=== PATIENT | female | born 1945 | race Caucasian/White ===

== ENCOUNTER → 2016-10-21 | Outpatient (CLI) | payer OTHER, BC ==
[~2016-10-21] MED LIST: AMLO-114 PO; ASPCH81X PO; CALC500C70 PO; HYDR25TA4 PO; LORA10CA2 PO; LOSA1TAB38 PO; METO1TAB69 PO; TIMO1SOL6 OPB
--- NOTE | 2016-10-21 16:36 | MAMMOGRAPHY REPORT ---
BILATERAL DIGITAL SCREENING MAMMOGRAM WITH CAD: 10/21/2016 CLINICAL HISTORY: Routine screening. Patient has no complaints. TECHNIQUE: Current study was also evaluated with a Computer Aided Detection (CAD) system. Bilatera l CC and MLO views were obtained. COMPARISON: Comparison is made to exams dated: 10/21/2015 mammogram, 10/17/2013 mammogram, 10/20/2014 mammogram, 10/16/2012 mammogram, and 10/13/2011 mammogram - [facility]. BREAST COMPOSITION: There are scattered areas of fibroglandular density in both breasts. FINDINGS: There is a small 6 mm nodular asymmetry seen within the right breast middle depth on the cc view posterior to the nipple, which may represent normal overlapping fibroglandular tissue althou gh spot compression tomosynthesis views and possible breast ultrasound are recommended for further e valuation. The remainder of both breasts are stable compared to prior exams, without suspicious masses, calcifi cations, or areas of architectural distortion noted. Bilateral benign-appearing calcifications are not significantly changed. IMPRESSION: ACR BI-RADS CATEGORY 0: INCOMPLETE EVALUATION: NEED ADDITIONAL IMAGING EVALUATION Right breast asymmetry, for which additional imaging evaluation is recommended. The patient will be called to schedule an appointment. Approximately 10% of breast cancers are not detected with mammography. A negative mammographic repor t should not delay biopsy if a clinically suggestive mass is present. Peg Mariano M.D. /:10/21/2016 16:04:12 Furnace Tapper: Kenya BRIGHT(Rudolph)(Bryce), [facility] letter sent: Addl Imaging 0 BI-RADS Code: ACR BI-RADS Category 0: Incomplete Evaluation: Need Additional Imaging Evaluation
== END | disposition home or self-care (01) ==
LOC: C.MAMM 09:24
PROVIDERS: ATTEND Obstetrics & Gynecology
DX: Z12.31 Encounter for screening mammogram for malignant neoplasm of breast (principal); N64.89 Other specified disorders of breast

== ENCOUNTER → 2016-10-31 | Outpatient (CLI) | payer OTHER, BC ==
--- NOTE | 2016-11-02 10:19 | MAMMOGRAPHY REPORT ---
UNILATERAL RIGHT DIGITAL DIAGNOSTIC MAMMOGRAM TOMOSYNTHESIS AND TARGETED RIGHT ULTRASOUND: 10/31/2016 CLINICAL HISTORY: 71-year-old woman called back from screening mammography for a 6 mm nodular asymme try in the right breast. TECHNIQUE: Spot compression right CC and MLO 2-D digital and tomosynthesis images were obtained. COMPARISON: Comparison is made to exams dated: 10/21/2015 mammogram, 10/21/2016 mammogram, 10/20/2014 mammogram, and 10/17/2013 mammogram - [facility]. BREAST COMPOSITION: There are scattered areas of fibroglandular density in the right breast. FINDINGS: There is complete effacement of the 6 mm nodular asymmetry in the slightly lateral, middle one third of the right breast, best seen on the CC view but thought to project superiorly based on the MLO view. There is no evidence of a persistent mass or a focal area of architectural distortion . There are benign-appearing rodlike secretory calcifications within the right breast. Real-time high-resolution ultrasound was performed in the right breast from the 11:00 through 1:00, retroareolar and 5:00 to 7:00 axes. Normal fibroglandular tissue is seen without a discrete solid o r cystic mass. IMPRESSION: ACR BI-RADS CATEGORY 2: BENIGN, TARGETED ULTRASOUND ACR BI-RADS CATEGORY 2: BENIGN Effacement of the 6 mm nodular asymmetry in the right breast with supplemental mammographic views an d tomosynthesis images, and no suspicious sonographic correlate. This most likely represented ariel l overlapping tissue. There is no mammographic or targeted sonographic evidence of malignancy. Retu rn to annual mammogram screening schedule is recommended. The patient has been verbally notified of the results. Approximately 10% of breast cancers are not detected with mammography. A negative mammographic repor t should not delay biopsy if a clinically suggestive mass is present. Lizette Hussein M.D. ay/:10/31/2016 14:18:48 Flag Signaler: Whitley BRIGHT(Rudolph)(Bryce), [facility] letter sent: Normal 1/2 BI-RADS Code: ACR BI-RADS Category 2: Benign Ultrasound BI-RADS: ACR BI-RADS Category 2: Benign
== END | disposition home or self-care (01) ==
LOC: C.MAMM 13:50
PROVIDERS: ATTEND Obstetrics & Gynecology
DX: N64.89 Other specified disorders of breast (principal)

== ENCOUNTER → 2016-11-30 | Outpatient (CLI) | payer OTHER, BC ==
[~2016-11-30] MED LIST changes: +METO100T44 PO; -METO1TAB69 PO
[2016-11-30 12:20] LABS: BASO % 0.4 %; BASO ABS # 0.02 K/uL (0-0.2); COMPLETE YES; EOS % 0.7 %; HEMATOCRIT 44.9 % (37-47); LYMPH % 34.5 %; LYMPH ABS # 1.95 K/uL (1.2-3.4); MEAN CELL VOLUME 91.8 fL (80-100); MEAN CORPUSCULAR HEMOGLOBIN 31.7 pg (25-34); MEAN CORPUSCULAR HGB CONC 34.5 g/dl (32-36); MEAN PLATELET VOLUME 9.6 fL (7.4-10.4); NEUT % 58.4 %; PLATELET COUNT 302 K/uL (130-400); RED BLOOD COUNT 4.89 M/uL (4.2-5.4); WHITE BLOOD COUNT 5.65 K/uL (4.8-10.8)
[2016-11-30 12:37] LABS: ALT/SGPT 25 U/L (12-78); BLOOD UREA NITROGEN 12 mg/dl (7-18); BUN/CREATININE RATIO 15.9 (10-20); CARBON DIOXIDE 27 mmol/L (21-32); CHLORIDE 96 mmol/L (98-107); CHOLESTEROL 251 mg/dl (0-200); CREATININE 0.76 mg/dl (0.60-1.20); GLUCOSE 108 mg/dl (70-99); MAGNESIUM 1.9 mg/dl (1.8-2.4); POTASSIUM 3.3 mmol/L (3.5-5.1); SODIUM 132 mmol/L (136-145); TRIGLYCERIDES 61 mg/dl (0-150); VERY LOW DENSITY LIPOPROT CALC 12 mg/dl
[2016-11-30 12:40] LABS: ALB/GLOB RATIO 1.2 (0.9-2); ALKALINE PHOSPHATASE 58 U/L (45-117); AST/SGOT 22 U/L (15-37); CHOLESTEROL/HDL RATIO 2.3; HDL CHOLESTEROL 110 mg/dl; LDL CHOLESTEROL CALCULATED 129 mg/dl
[2016-11-30 12:44] LABS: ESTIMATED AVERAGE GLUCOSE 120 mg/dl; HA1C FLAG Normal (Normal)
--- NOTE | 2016-12-07 07:25 | CODING QUERY MEDICAL NECESSITY ---
CQSUPPORTING DIAGNOSIS NEEDED A supporting diagnosis is required for the test/procedure performed on this patient in order for us to be reimbursed by the patient's insurance. Please provide a supporting diagnosis for the following test/procedure listed below next to the test name along with your signature. *If there is no additional diagnosis for this patient that would support the following test/procedure please document that below next to the test/procedure. Test(s)/Procedure(s) that require a supporting diagnosis: DOS 11/30/16 GLYCATED HEMOGLOBIN TEST Provider Signature: Date: Thank you Leslye Arita Health Information Management Once completed, please kindly fax back to [phone] For questions please call [phone]
== END | disposition home or self-care (01) ==
LOC: C.LAB1850 10:46
PROVIDERS: ATTEND Internal Medicine
DX: I10 Essential (primary) hypertension (principal); E88.81 Metabolic syndrome and other insulin resistance; E78.5 Hyperlipidemia, unspecified; E83.42 Hypomagnesemia; R73.09 Other abnormal glucose

== ENCOUNTER → 2016-12-23 | Outpatient (CLI) | payer OTHER, BC | END | disposition home or self-care (01) | LOC: C.RDSM 14:17 | PROVIDERS: ATTEND Family Medicine Sports Medicine | DX: M25.552 Pain in left hip (principal) ==

== ENCOUNTER → 2017-06-02 | Outpatient (CLI) | payer OTHER, BC ==
[2017-06-02 12:30] LABS: ESTIMATED AVERAGE GLUCOSE 117 mg/dl; HA1C FLAG Normal (Normal)
[2017-06-02 13:37] LABS: ALT/SGPT 21 U/L (12-78); AST/SGOT 19 U/L (15-37); BLOOD UREA NITROGEN 12 mg/dl (7-18); BUN/CREATININE RATIO 18.2 (10-20); CALCIUM 10.1 mg/dl (8.5-10.1); CARBON DIOXIDE 28 mmol/L (21-32); CHLORIDE 99 mmol/L (98-107); CHOLESTEROL 240 mg/dl (0-200); CREATININE 0.66 mg/dl (0.60-1.20); GLUCOSE 114 mg/dl (70-99); SODIUM 134 mmol/L (136-145); TRIGLYCERIDES 75 mg/dl (0-150); VERY LOW DENSITY LIPOPROT CALC 15 mg/dl
[2017-06-02 13:40] LABS: CHOLESTEROL/HDL RATIO 2.8; HDL CHOLESTEROL 86 mg/dl; LDL CHOLESTEROL CALCULATED 139 mg/dl
== END | disposition home or self-care (01) ==
LOC: C.LAB1850 10:24
PROVIDERS: ATTEND Internal Medicine
DX: I10 Essential (primary) hypertension (principal); E78.5 Hyperlipidemia, unspecified; R73.09 Other abnormal glucose

== ENCOUNTER → 2017-07-24 | Day surgery (SDC) | payer OTHER, BC ==
[~2017-07-24] VITALS: Ht 168.9 cm; Wt 59.0 kg
[~2017-07-24] MED LIST changes: +CARV25TA2 PO; +OMEG10007 PO; +POTA20TA16 PO
[2017-07-24 08:47] VITALS: BP 202/80; PULSE 59; TEMP 36.6; O2SAT 97; Ht 168.9 cm; Wt 59.0 kg
--- NOTE | 2017-07-25 09:56 | Procedure Note ---
Breath Hydrogen Test Interpretation Assessment: Findings from Lactose breath test consistent with Lactose intolerance. Plan: Lactose free diet If patient does ingest Lactose, recommend Lactaid with first bite/drink of lactose containing substance. Recommend Celiac disease testing if it has not already been performed. Return to ordering provider as scheduled.
== END | disposition home or self-care (01) ==
LOC: C.MTU 08:31
PROVIDERS: ATTEND Internal Medicine
DX: R19.7 Diarrhea, unspecified (principal)

== ENCOUNTER → 2017-10-23 | Outpatient (CLI) | payer OTHER, BC ==
[~2017-10-23] MED LIST changes: -AMLO-114 PO; -LORA10CA2 PO; -METO100T44 PO; -TIMO1SOL6 OPB
--- NOTE | 2017-10-24 14:58 | MAMMOGRAPHY REPORT ---
BILATERAL DIGITAL SCREENING MAMMOGRAM TOMOSYNTHESIS WITH CAD: 10/23/2017 CLINICAL HISTORY: Routine screening. Patient has no complaints. TECHNIQUE: Breast tomosynthesis in addition to standard 2D mammography was performed. Current study was also evaluated with a Computer Aided Detection (CAD) system. COMPARISON: Comparison is made to exams dated: 10/31/2016 mammogram, 10/21/2016 mammogram, 10/21/2015 m ammogram, 10/20/2014 mammogram, 10/17/2013 mammogram, and 10/16/2012 mammogram - [facility]. BREAST COMPOSITION: There are scattered areas of fibroglandular density in both breasts. FINDINGS: There is a 9 mm asymmetry seen in the right central breast, for which spot compression susan synthesis views and possible breast ultrasound are recommended for further evaluation. The remainder of both breasts are stable compared to prior exams, without suspicious masses, calcific ations, or areas of architectural distortion noted. Bilateral benign-appearing calcifications are no t significantly changed. IMPRESSION: ACR BI-RADS CATEGORY 0: INCOMPLETE EVALUATION: NEED ADDITIONAL IMAGING EVALUATION Right breast asymmetry, for which additional imaging evaluation is recommended. The patient will be called to schedule an appointment. Approximately 10% of breast cancers are not detected with mammography. A negative mammographic report should not delay biopsy if a clinically suggestive mass is present. Peg Mariano M.D. /:10/23/2017 16:04:17 Hvac Sheet Metal Installer: Naila FALCON)(Bryce), [facility] letter sent: Addl Imaging 0 BI-RADS Code: ACR BI-RADS Category 0: Incomplete Evaluation: Need Additional Imaging Evaluation
== END | disposition home or self-care (01) ==
LOC: C.MAMM 09:56
PROVIDERS: ATTEND Obstetrics & Gynecology
DX: Z12.31 Encounter for screening mammogram for malignant neoplasm of breast (principal); N64.89 Other specified disorders of breast

== ENCOUNTER → 2017-11-01 | Outpatient (CLI) | payer OTHER, BC ==
--- NOTE | 2017-11-02 07:47 | MAMMOGRAPHY REPORT ---
UNILATERAL RIGHT DIGITAL DIAGNOSTIC MAMMOGRAM TOMOSYNTHESIS AND TARGETED RIGHT ULTRASOUND: 11/01/2017 CLINICAL HISTORY: 72-year-old woman called in back from screening mammography for a 9 mm focal asymme try in the central right breast. TECHNIQUE: Spot compression tomosynthesis right CC and MLO views were obtained. COMPARISON: Comparison is made to exams dated: 10/23/2017 mammogram, 10/31/2016 mammogram, 10/31/2016 u ltrasound, 10/21/2016 mammogram, 10/21/2015 mammogram, and 10/20/2014 mammogram - [facility]. BREAST COMPOSITION: There are scattered areas of fibroglandular density in the right breast. FINDINGS: The additional spot compression tomosynthesis views of the right breast demonstrate effacem ent of the 9 mm focal asymmetry in the central right breast. No definite persistent architectural di stortion, obvious mass or asymmetry. Further evaluation with ultrasound was performed. Targeted ultrasound was performed throughout the right breast including the retroareolar breast. Son ographically normal tissue is seen without a discrete solid or cystic mass. Although the asymmetry effaces with the additional mammographic views and no sonographic correlate wa s seen, the asymmetry is in the same general location as an asymmetry seen on last years mammogram an d therefore remains indeterminate. Definitive characterization with a contrast-enhanced breast MRI i s recommended. IMPRESSION: ACR BI-RADS CATEGORY 0: INCOMPLETE EVALUATION: NEED ADDITIONAL IMAGING EVALUATION, TARG ETED ULTRASOUND ACR BI-RADS CATEGORY 0: INCOMPLETE EVALUATION: NEED ADDITIONAL IMAGING EVALUATION Effacement of the right breast asymmetry, and no suspicious sonographic correlate identified. Renetta r, given the conspicuous and suspicious nature of this asymmetry on the patient's screening mammogram , further characterization with a breast MRI is recommended. These results and recommendations were discussed with the patient at the time of the exam. She tenta tively scheduled the MRI prior to leaving our department. Approximately 10% of breast cancers are not detected with mammography. A negative mammographic report should not delay biopsy if a clinically suggestive mass is present. Lizette Hussein M.D. ay/:11/01/2017 12:29:55 Mud Cleaner Operator: Naye Wilson, [facility] letter sent: Addl Imaging 0 BI-RADS Code: ACR BI-RADS Category 0: Incomplete Evaluation: Need Additional Imaging Evaluation Ult rasound BI-RADS: ACR BI-RADS Category 0: Incomplete Evaluation: Need Additional Imaging Evaluation
== END | disposition home or self-care (01) ==
LOC: C.MAMM 09:09
PROVIDERS: ATTEND Obstetrics & Gynecology
DX: N64.89 Other specified disorders of breast (principal)

== ENCOUNTER → 2017-11-02 | Outpatient (CLI) | payer OTHER, BC ==
[2017-11-02 15:18] LABS: BLOOD UREA NITROGEN 15 mg/dl (7-18); CREATININE 0.81 mg/dl (0.60-1.20)
== END | disposition home or self-care (01) ==
LOC: C.LAB1850 13:17
PROVIDERS: ATTEND Obstetrics & Gynecology
DX: R92.8 Other abnormal and inconclusive findings on diagnostic imaging of breast (principal)

== ENCOUNTER → 2017-11-15 | Outpatient (CLI) | payer OTHER, BC ==
[~2017-11-15] MED LIST changes: +GADAVIST IV PRN; +POTA-639 PO; -POTA20TA16 PO
--- NOTE | 2017-11-16 07:57 | MAMMOGRAPHY REPORT ---
BREAST MRI OF BOTH BREASTS : 11/15/2017 CLINICAL HISTORY: A right breast asymmetry was seen on a recent screening mammogram. The asymmetry e ffaced on the additional images, without a suspicious sonographic correlate evident. However, an MRI was recommended for further evaluation given the conspicuous nature on the screening mammogram. COMPARISON: Comparison is made to exams dated: 11/01/2017 ultrasound, 11/01/2017 mammogram, 10/23/2017 mammogram, 10/31/2016 mammogram, 10/31/2016 ultrasound, and 10/21/2016 mammogram - [facility]. Technique: The patient was placed prone in a dedicated breast imaging coil. Precontrast axial T1-lissette ghted, axial T2-weighted fat saturation, and axial T1-weighted fat saturation images were obtained. After the administration of 5.5 mL of Gadavist IV contrast, sequential T1-weighted fat saturation aubrey ges were obtained. Subtraction images were obtained of the dynamic contrast enhanced sequences, and 3-D reformations were performed. The [employer] software was used for kinetic analysis. Findings: There is minimal background parenchymal enhancement involving bilateral breasts. There are no suspic ious enhancing masses or areas of abnormal non-mass enhancement seen within either breast. Specifica lly, there is no enhancing mass or other suspicious abnormality in the right breast at the site of an asymmetry seen mammographically. Given that the asymmetry effaced on the additional views and given the lack of corresponding MRI abnormality, the asymmetry is benign and compatible with normal fibrog landular tissue. There is no evidence of axillary adenopathy. The chest wall structures are negative. Visualized por tions of the extramammary soft tissues are grossly unremarkable. IMPRESSION: ACR BI-RADS CATEGORY 2: BENIGN No MRI evidence of malignancy in either breast. There is no suspicious MRI abnormality at the site o f the right breast asymmetry seen mammographically; given the lack of a corresponding MRI abnormality and given that the asymmetry effaced on the additional mammographic images, the asymmetry is benign and compatible with normal fibroglandular tissue. Return to annual mammogram screening schedule is re commended. Peg Mariano M.D. /:11/15/2017 13:28:56 Filler Picker: child welfare director, [facility] letter sent: Normal 1/2 BI-RADS Code: ACR BI-RADS Category 2: Benign
== END | disposition home or self-care (01) ==
LOC: C.MRI 11:27
PROVIDERS: ATTEND Obstetrics & Gynecology
DX: R92.8 Other abnormal and inconclusive findings on diagnostic imaging of breast (principal)

== ENCOUNTER → 2017-11-22 | Outpatient (CLI) | payer OTHER, BC ==
[~2017-11-22] MED LIST changes: -GADAVIST IV PRN
[2017-11-22 12:21] LABS: BLOOD UREA NITROGEN 14 mg/dl (7-18); CALCIUM 9.8 mg/dl (8.5-10.1); CARBON DIOXIDE 29 mmol/L (21-32); CREATININE 0.75 mg/dl (0.60-1.20); GLUCOSE 107 mg/dl (70-99); POTASSIUM 3.8 mmol/L (3.5-5.1); SODIUM 131 mmol/L (136-145)
[2017-11-22 12:24] LABS: CHOLESTEROL 211 mg/dl (0-200); LDL CHOLESTEROL CALCULATED 107 mg/dl
== END | disposition home or self-care (01) ==
LOC: C.LAB1850 10:01
PROVIDERS: ATTEND Internal Medicine
DX: E78.5 Hyperlipidemia, unspecified (principal); I10 Essential (primary) hypertension; M85.80 Other specified disorders of bone density and structure, unspecified site

== ENCOUNTER → 2017-12-21 | Outpatient (CLI) | payer OTHER, BC | END | disposition home or self-care (01) | LOC: C.PAPS 07:49 | PROVIDERS: ATTEND Obstetrics & Gynecology | DX: Z01.419 Encounter for gynecological examination (general) (routine) without abnormal findings (principal) ==

== ENCOUNTER 2019-11-14 08:27 | Inpatient (IN) ==
[2019-11-12 09:35] LABS: Basophils # (auto) 0.04 K/uL (0-0.2); Basophils % (auto) 0.8 %; Eosinophils # (auto) 0.11 K/uL (0-0.5); Eosinophils % (auto) 2.2 %; Hematocrit (blood only) 40.1 % (37-47); Hemoglobin 13.7 g/dL (12.0-16.0); Lymphocytes # (auto) 2.19 K/uL (1.2-3.4); Lymphocytes % (auto) 43.5 %; Mean Corpuscular Hemoglobin 31.5 pg (25-34); Mean Corpuscular Hgb Conc 34.2 g/dL (32-36); Mean Corpuscular Volume 92.2 fL (80-100); Mean Platelet Volume 9.7 fL (7.4-10.4); Monocytes # (auto) 0.37 K/uL (0.11-0.59); Monocytes % (auto) 7.3 %; Neutrophils # (auto) 2.33 K/uL (1.4-6.5); Neutrophils % (auto) 46.2 %; Platelet Count 286 K/uL (130-400); RDW Coefficient of Variation 13.5 % (11.5-14.5); RDW Standard Deviation 46.1 fL (36.4-46.3); Red Blood Count 4.35 M/uL (4.2-5.4); White Blood Count 5.04 K/uL (4.8-10.8)
[2019-11-12 10:01] LABS: BUN Creatinine Ratio 18.6 (10-20); Blood Urea Nitrogen 12 mg/dl (7-18); Calcium 9.6 mg/dl (8.5-10.1); Carbon Dioxide 29 mmol/L (21-32); Chloride 100 mmol/L (98-107); Est GFR (African American) 102.3; Est GFR (Non-African American) 88.3; Glucose 112 mg/dl (70-99); Sodium 133 mmol/L (136-145)
--- NOTE | 2019-11-13 11:47 | Anesthesiology Consultation ---
Date of Service November 13, 2019 Assessment & Plan (1) Encounter for pre-operative examination: Chart Review Chart Review: Acceptable Risk for Surgery and Patient NOT seen in Pre Admission Testing Consults Requested none History Surgery Operation Date: 11/14/19 10:00 Proposed Procedures p Left Robotic Video Assisted Thoracoscopy with Left Upper Wedge Resection and Mediastinal Lymphadenectomy - Patrick Figueroa MD, FACS Height/Weight Height: 5 ft 4.5 in Weight: 57.606 kg Allergies Allergy/AdvReac Type Severity Reaction Status Date / Time azithromycin Allergy Diarrhea Verified 11/13/19 08:57 codeine AdvReac Unknown NAUSEA Verified 11/13/19 08:57 nickel AdvReac Unknown Rash Verified 11/13/19 08:57 lactose AdvReac Diarrhea Verified 11/13/19 08:57 Medications Home Medications Medication Instructions Recorded Confirmed Last Taken Lactobacillus 1 cap PO UD cap 03/12/19 11/13/19 10/07/19 08:00 acidophilus-Bifidobac.animalis 31 billion cell capsule biotin 2,500 mcg capsule 2,500 mcg PO QPM cap 03/12/19 11/13/19 10/08/19 18:00 calcium carbonate 600 mg (1,500 1 tab PO BID tab 03/12/19 11/13/19 10/09/19 06:00 mg)-vitamin D3 200 unit tablet aspirin 81 mg tablet 81 mg PO Q OTHER DAY tab 06/17/19 11/13/19 10/06/19 08:00 carvedilol 25 mg tablet 25 mg PO BID #180 tab 09/18/19 11/13/19 10/09/19 06:00 albuterol sulfate 90 mcg/actuation 2 puff INH Q6H PRN #18 gm 09/27/19 11/13/19 10/06/19 08:00 aerosol inhaler bupropion HCl (smoking deter) 150 150 mg PO BID #60 tab 09/27/19 11/11/19 18:00 mg tablet,12 hr sustained-release(smoking deterrent) hydrochlorothiazide 25 mg PO QAM 11/13/19 11/13/19 Unknown losartan 100 mg PO QAM 11/13/19 11/13/19 Unknown potassium chloride 20 meq PO BID 11/13/19 11/13/19 Unknown umeclidinium-vilanterol [Anoro 1 puffs INH QAM 11/13/19 11/13/19 Unknown Ellipta] Past Medical History Medical History Abnormal glucose (Inactive) PATIENT STATES "BORDERLINE". NO MEDICATIONS. CONTROLLED WITH DIET. Alopecia Bronchitis HISTORY OF 2 YEARS AGO (2018) COPD with emphysema PATIENT STATES IT IS CONTROLLED, NO OXYGEN NEEDED. ABLE TO WALK UP TWO FLIGHTS OF STAIRS WITH NO SOB. Dysmetabolic syndrome X (Inactive) Eczema DURING THE WINTER MONTHS Hearing loss (Inactive) BL HEARING AIDS Hypertension (Inactive) Lymphocytic colitis (Inactive) Osteopenia (Inactive) Primary lung adenocarcinoma (Chronic) CT guided left upper lobe lung nodule on 10/09/2019 Pulmonary nodule Tobacco use disorder Past Family History Family History Father , 87yo Type 2 diabetes mellitus Myocardial infarction Mother , 49yo Cerebral aneurysm Sister No problems noted. Son No problems noted. Daughter No problems noted. Denies family history of Colon cancer Ovarian cancer Prostate cancer Past Surgical History Surgical History H/O esophagogastroduodenoscopy 3 YEARS AGO History of cataract surgery History of colonoscopy 3 YEARS AGO S/P POLYPECTOMY Social History Smoking Status: Former smoker tobacco type: cigarettes Smoking cigarettes per day: 10 Do You Dip or Chew Tobacco: No Smoking End Date: 11/09/2019 Hx Alcohol Use: Yes Alcohol type: beer, wine and hard liquor alcohol intake frequency: 0-2 drinks per day Alcohol Intake Frequency Comment: 2 DRINKS A DAY Hx Substance Use: No Testing Laboratory Results 11/12/19 09:04 11/12/19 09:04 Electrocardiogram Date: 11/12/19 Sinus bradycardia with 1st degree A-V block, rate 56 bpm Minimal voltage criteria for LVH, may be normal variant ( Sokolow-Ochoa ) Borderline ECG No previous ECGs available Chest X-Ray Date: 10/09/19 IMPRESSION: 1. No pneumothorax is identified. 2. Emphysema. 3. A left upper lobe opacity likely corresponds to the patient's known left upper lobe pulmonary lesion and trace postprocedural hemorrhage. 4. Additional smaller pulmonary lesions seen by CT cannot be visualized by x- ray. Echocardiogram Date: 11/05/19 LV systolic function is normal No regional wall motion abnormalities EF 60-65% Mild TR Pulmonary Function Test Date: 10/04/19 Severe obstructive lung dysfunction Significant bronchodilator response Positive air trapping Severe COPD with emphysema Other Testing Brain MRI 11/05/19 IMPRESSION: 1. No evidence of intracranial metastasis 2. No evidence of acute or subacute infarction 3. 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 CT angiography of the brain is recommended in follow-up 4. 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 24 x 7 mm right anterior temporal extra-axial focus of decreased T1 and T2 signal, likely representing a dural calcific/ossific focus
[~2019-11-14 08:27] MED LIST changes: -ASPCH81X PO; -CALC500C70 PO; -CARV25TA2 PO; -HYDR25TA4 PO; -LOSA1TAB38 PO; +LR 15ML/HR IV SCH; -OMEG10007 PO; -POTA-639 PO
[2019-11-14] MEDS ORDERED: HYDROmorphone INJ 1 MG/ML SYRINGE IV PRN (09:25)
[2019-11-14] MEDS ORDERED: ePHEDrine sulfate 50 MG/ML AMP IV PRN (09:25)
[2019-11-14] MEDS ORDERED: ATROPINE SULFATE 0.1 MG/ML 10ML SYR IV PRN (09:25)
[2019-11-14] MEDS ORDERED: ONDANSETRON INJ 2 MG/ML 2 ML VIAL IV PRN ×2 (09:25→15:33)
[2019-11-14] MEDS ORDERED: NEOSTIGMINE METHYLSULFATE 5 MG/5 ML SYR ONE (10:10)
[2019-11-14] MEDS ORDERED: LIDOCAINE HCL 2% 2 ML VIAL/AMP(20MG/ML) INFIL ONE (10:10)
[2019-11-14] MEDS ORDERED: GLYCOPYRROLATE 0.2 MG/ML VIAL ONE ×2 (10:10→12:49)
[2019-11-14] MEDS ORDERED: DEXAMETHASONE SOD INJ 4 MG/ML VIAL ONE (10:10)
[2019-11-14] MEDS ORDERED: PROPOFOL IV EMULSION 10 MG/ML 20 ML VIAL IV ONE (10:10)
[2019-11-14] MEDS ORDERED: ONDANSETRON INJ 2 MG/ML 2 ML VIAL ONE (10:10)
[2019-11-14] MEDS ORDERED: MIDAZOLAM HCL 1 MG/ML 2ML VIAL ONE (10:11)
[2019-11-14] MEDS ORDERED: fentaNYL citrate 100 MCG/2 ML VIAL ONE ×2 (10:11→14:13)
--- NOTE | 2019-11-14 10:16 | History & Physical Bridge Note ---
Date of Service November 14, 2019 History & Physical Bridge Note I have examined the patient, reviewed the History & Physical and in the interval since the performance of the History & Physical I have noted the following changes of clinical significance: no changes noted
[2019-11-14] MEDS ORDERED: SODIUM CHLORIDE 0.9% PF 50 ML VIAL ONE (10:35)
[2019-11-14] MEDS ORDERED: BUPIVACAINE 0.5 % 5 MG/1 ML MPF 30ML VIAL ONE (10:36)
[2019-11-14] MEDS ORDERED: BUPIVACAINE LIPOSOME 1.3% 266 MG/20 ML VIAL ONE (10:36)
[2019-11-14] MEDS ORDERED: CEFAZOLIN 250 MG/ML 1 GM VIAL ONE (12:24)
[2019-11-14] MEDS ORDERED: ePHEDrine sulfate 50 MG/ML AMP ONE (12:48)
[2019-11-14] MEDS ORDERED: ACETAMINOPHEN 1000 MG/100 ML IV IV ONE (13:14)
--- NOTE | 2019-11-14 13:30 | Operative Report ---
PG Post Operative Report Pre & Post Diagnosis Operation Date: 11/14/19 10:00 Pre-Op Diagnosis: Adenocarcinoma left upper lobe Post-Op Diagnosis: Adenocarcinoma left upper lobe I identified the patient and participated in the time-out.: Yes Procedure Operation Date: 11/14/19 10:00 Actual Procedures p Left Robotic Video Assisted Thoracoscopy with Left Upper Wedge Resection and Mediastinal Lymphadenectomy(Left) - Patrick Figueroa MD, FACS Surgeon Patrick Figueroa MD, FACS Quality Assurance Assessor Isaias DIAS Estimated Blood Loss 25 Findings Consistent with Post-Op Diagnosis Specimens Left upper lobe wedge x2. Multiple mediastinal lymph nodes. Drains 24 Iranian left chest tube Anesthesia Type General Complications none Disposition Accompanied Patient To Recovery: Yes Disposition: Recovery Room Description of Procedure This very nice 74-year-old female who underwent a needle biopsy of a left upper lobe mass was found to have an adenocarcinoma. We discussed her multiple times at our multidisciplinary cancer conference this. She has some groundglass opacities on the right however they did not light up on the PET scan. She also has no mediastinal adenopathy. It was felt that she may be a candidate for therapy but we have not stage her properly. An MRI of her brain did not reveal any evidence of metastatic disease. After much discussion we elected proceed with a wedge resection as we did not have genomic studies on her needle biopsy. I did discuss repeating the CT-guided core biopsy with the patient and she was desirous of having a definitive diagnosis. I had a long discussion with the patient and her in the office as well as her daughter. We elected to proceed with a wedge resection if she does have compromised lung function and continues to smoke although she has decreased dramatically. I felt she would be a candidate for a wedge resection and a lymph node dissection to properly stage her and treat her locally. Would also be of acute syndrome extremities. Everyone was in agreement. On 11/14/2019 patient underwent uncomplicated robot-assisted thoracoscopic wedge resection. We easily divide the mass. It was not attached to the left lower lobe however did appear to involve the pleura. I wedged it out and went down to the cutting room where the pathologist and I reviewed the gross tumor and it appeared there we had about a 5 or 6 mm margin in one area. The bit concerned about this and came back to the operating room and wedged out a more generous section here. I want to ensure we had negative margins. In addition I biopsied multiple lymph nodes were waiting for the frozen. She tolerated the procedure quite well with negative a blood loss was awake without difficulty in the operating room. Procedure: Patient was brought to the operating room and laid in the supine position she was intubated without difficulty with a double-lumen tube and turned in the right lateral decubitus position. After she was prepped and draped in usual sterile fashion prophylactic antibiotics were given. Appropriate timeout was called and one lung ventilation ensued. A 5 mm thoracoscope was inserted through a 5 mm port just out the midaxillary line in the eighth interspace. Could be seen there were no adhesions. She had well-developed fissures. We then switch this over to a 12 mm camera port and put an 8 mm port posteriorly an 8 mm port anteriorly in the same interspace. We then put a 12 mm assistance port just above the diaphragm on the right anteriorly between the camera port and the anterior port. A total of 266 mg of Exparel rel and 20 cc solution was mixed with 30 cc of 0.5% ropivacaine and 250 cc of normal saline. Each of these ports was injected with the Exparel before making the incision. I then used a long needle intrathoracic Cecilio to perform a intercostal block from the second to the 12th rib. The robot was then docked. We could easily see the tumor. This was grasped and a generous wedge biopsy was done. This was delivered off the field in an Endobag through the assistance port. While waiting for the frozen section we retracted the lung anteriorly and biopsied right level 10 nodes posteriorly as well as a level 7 node and a level 8 node as well as a level 11 node. Coming up anteriorly and superiorly I then dissected out a level 5 node and a level 6 node as well as another level 10 node anteriorly. We got into no bleeding. We had no lung injury. I then broke scrub and went down to the pathologist office in the cutting room and inspected the gross specimen after we had cut it. It appeared we did have a 5 mm or so margin but I was concerned about that. I then returned to the operating room and grasping this area which was the medial most part of the staple line I then wedged out another 10 to 15 mm with an Endo LILI stapler. This was delivered off the field through an Endobag. Did not see a significant air leak. 24 Iranian chest tube was placed through the assistance port and sutured in place with heavy silk suture. 0 Vicryl was used to close the camera port muscle layers as well as around the chest tube and the assistance port. 4 Monocryl was used in a running subcuticular fashion approximate the wound edges. Antimicrobial dressings were placed. She tolerated well was extubated in the room. She was transported to the postanesthesia care unit in stable condition. I attest to the content of the Intraoperative Record and any orders documented therein. Any exceptions are noted below.
[2019-11-14] MEDS: fentaNYL citrate 100 MCG/2 ML VIAL IV PRN ×3 (14:14→14:32)
--- NOTE | 2019-11-14 14:16 | XRay Report ---
XR chest 1V portable HISTORY: 74 years-old Female lung resection left-sided pulmonary resection COMPARISON: Chest radiograph 10/09/2019 TECHNIQUE: Portable AP view of the chest FINDINGS: Cardiac silhouette is mildly enlarged, unchanged. Emphysema. Status post resection of the previously noted left upper lung lesion. A left-sided chest tube is in place, distal tip overlying the left lung apex. Subcutaneous emphysema of the left supraclavicular distribution and lateral left chest wall. N o definite pneumothorax identified. Mild left hemidiaphragmatic elevation with left lung opacities singleton ggestive of atelectasis. No overt pulmonary edema. Degenerative changes of the shoulders and spine. IMPRESSION: Postoperative changes of the left lung with left-sided chest tube terminating adjacent to left lung apex. No definite postprocedural pneumothorax identified. ACT 112: Negative or not required by law. The above report was generated using voice recognition software. It may contain grammatical, syntax o r spelling errors. Electronically signed by: Troy Corado M.D. 11/14/2019 2:15 PM
--- NOTE | 2019-11-14 14:43 | Anesthesiology Progress Note ---
Date of Service November 14, 2019 Anesthesia Post Procedure Vital Signs Vital Signs: Temp Pulse Resp BP Pulse Ox 11/14/19 09:03 36.5 C 54 L 18 189/64 H 98 Transfer of Care Handoff Completed per policy Notes Mental Status: alert / awake / arousable and participated in evaluation Patient Amnestic to Procedure: Yes Nausea / Vomiting: adequately controlled Pain: adequately controlled Airway Patency, RR, SpO2: stable & adequate BP & HR: stable & adequate Hydration State: stable & adequate Anesthetic Complications: no major complications apparent and Pt Satisfied with anesthetic care
[2019-11-14] MEDS ORDERED: ALBUTEROL HFA 8 GM INHALER INH PRN (15:33)
[2019-11-14] MEDS ORDERED: MoRPHine SULFATE 2 MG/ML CARP IV PRN (15:33)
[2019-11-14] MEDS ORDERED: KETOROLAC TROMETHAMINE 15 MG/ML VIAL IV PRN (15:33)
[2019-11-14] MEDS: D5W AND 1/2NSS 1,000 ML IV SCH (16:01)
[2019-11-14] MEDS: METOCLOPRAMIDE HCL INJ 5 MG/ML 2 ML VIAL IV SCH ×2 (16:57→23:45)
[2019-11-14] MEDS: CALCIUM 600MG + VIT D 400 IU TAB PO SCH (20:01)
[2019-11-14] MEDS: DOCUSATE SODIUM 100 MG CAP PO SCH (20:02)
[2019-11-14] MEDS: carvediloL 25 MG TAB PO SCH (20:13)
[2019-11-14] MEDS: ACETAMINOPHEN 1,000 MG/100 ML VIAL IV SCH (20:16)
[2019-11-14] MEDS ORDERED: cloNIDine HCL 0.1 MG/24 HR TRANSDERM SYS TD SCH (20:30)
[2019-11-14] MEDS ORDERED: BIOTIN 2500 MCG PO SCH (21:00)
[2019-11-14] MEDS: CHECK CLONIDINE PATCH PLACEMENT SCH (23:53)
[2019-11-15] MEDS: D5W AND 1/2NSS 1,000 ML IV SCH (01:31)
[2019-11-15] MEDS: ACETAMINOPHEN 1,000 MG/100 ML VIAL IV SCH ×3 (03:38→20:00)
--- NOTE | 2019-11-15 06:56 | XRay Report ---
XR chest 1V portable CLINICAL HISTORY: left lung wedge biopsy COMPARISON STUDY: 11/14/2019 FINDINGS: Postsurgical changes are present on the left. There is no change in the position left-sided chest tube. There is a left upper lung zone suture line. There is no focal pulmonary consolidation. No pneumothorax is visualized. There is minor subcutaneous emphysema on the left.[ IMPRESSION: Stable postsurgical changes within the left hemithorax. No evidence of focal pulmonary co nsolidation. No evidence of pneumothorax. ACT 112: Negative or not required by law. Electronically signed by: Otilio Hylton M.D. 11/15/2019 6:55 AM
[2019-11-15] MEDS: carvediloL 25 MG TAB PO SCH ×2 (07:47→20:31)
[2019-11-15] MEDS: CHECK CLONIDINE PATCH PLACEMENT SCH ×3 (08:27→23:31)
[2019-11-15] MEDS: DOCUSATE SODIUM 100 MG CAP PO SCH ×2 (08:28→20:30)
[2019-11-15] MEDS: CALCIUM 600MG + VIT D 400 IU TAB PO SCH ×2 (08:28→20:30)
[2019-11-15] MEDS: LACTOBACILLUS ACIDOPHILUS (FLORANEX) TAB PO SCH (08:28)
[2019-11-15] MEDS: UMECLIDINIUM/VILANTEROL 62.5/25MCG 7 PUFFS/INHALER INH SCH (08:28)
[2019-11-15] MEDS: METOCLOPRAMIDE HCL INJ 5 MG/ML 2 ML VIAL IV SCH ×3 (08:29→23:26)
[2019-11-15] MEDS: LOSARTAN POTASSIUM 50 MG TAB PO SCH (08:29)
[2019-11-15] MEDS: ENOXAPARIN INJ 40 MG/0.4 ML SYR SQ SCH (08:29)
[2019-11-15] MEDS: OXYCODONE HCL IR 5 MG TAB (IMMEDIATE RELEASE) PO PRN ×2 (08:41→23:26)
--- NOTE | 2019-11-15 10:19 | Progress Notes ---
DATE: Mrs. Drew is seen today on 11/15/2019. 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 We had grossly clean resection margins, although I did take an extra stable to make sure that we had a microscopically clean margins. In addition, I did a lymph node dissection. She has done very well. There are a few problems. She is having some discomfort as would be expected. She has a tiny air leak. She is not draining much from her chest tube. Her x-ray looks great. She has no pneumothorax or infiltrates. She is on room air, ambulating in the hallway without difficulty. She is tolerating a regular diet. All in all, I am quite pleased with her. We have had problems with her blood pressure, which is a chronic problem with her. I put her on a Catapres patch 0.1 last night and her blood pressure came down a little but not as much as I would like. We are going to increase this to 0.3 today. I have discussed all this with the nurses. She has done very well. We will have her out of the hospital tomorrow. I will bring her back in the office next week to go over her pathology report.
[2019-11-15] MEDS: cloNIDine HCL 0.3 MG/24 HR TRANSDERM SYS TD SCH (11:29)
[2019-11-16] MEDS: ACETAMINOPHEN 1,000 MG/100 ML VIAL IV SCH ×3 (05:13→20:11)
--- NOTE | 2019-11-16 07:24 | XRay Report ---
XR chest 1V portable HISTORY: 74 years-old Female lung resection status post left-sided lung resection COMPARISON: Chest radiograph 11/15/2019 TECHNIQUE: Portable AP view of the chest FINDINGS: Postoperative changes of the left lung are redemonstrated. Subcutaneous emphysema of the lateral left chest wall has slightly increased. Stable positioning of the left-sided chest tube, distal tip termi nating adjacent to the left lung apex. Small left apical pneumothorax with pleural separation measuri ng up to 1.4 cm. Mild bibasilar densities suggest atelectasis. Probable trace right pleural effusion. Cardiac silhouette is upper limits of normal in size. No overt pulmonary edema. Degenerative changes of the shoulders and spine. IMPRESSION: 1. Postoperative changes of the left lung with stable positioning of the left-sided chest tube. 2. Small left apical pneumothorax. ACT 112: Negative or not required by law. The above report was generated using voice recognition software. It may contain grammatical, syntax o r spelling errors. Electronically signed by: Troy Corado M.D. 11/16/2019 7:23 AM
[2019-11-16] MEDS: METOCLOPRAMIDE HCL INJ 5 MG/ML 2 ML VIAL IV SCH ×3 (07:48→23:33)
[2019-11-16] MEDS: CHECK CLONIDINE PATCH PLACEMENT SCH ×3 (07:48→23:33)
[2019-11-16] MEDS: UMECLIDINIUM/VILANTEROL 62.5/25MCG 7 PUFFS/INHALER INH SCH (08:20)
[2019-11-16] MEDS: DOCUSATE SODIUM 100 MG CAP PO SCH ×2 (08:21→20:58)
[2019-11-16] MEDS: CALCIUM 600MG + VIT D 400 IU TAB PO SCH ×2 (08:21→20:58)
[2019-11-16] MEDS: LOSARTAN POTASSIUM 50 MG TAB PO SCH (08:22)
[2019-11-16] MEDS: LACTOBACILLUS ACIDOPHILUS (FLORANEX) TAB PO SCH (08:23)
[2019-11-16] MEDS: carvediloL 25 MG TAB PO SCH ×2 (08:24→20:57)
[2019-11-16] MEDS: ENOXAPARIN INJ 40 MG/0.4 ML SYR SQ SCH (08:25)
--- NOTE | 2019-11-16 11:59 | Progress Notes ---
DATE: 11/16/2019 The patient looks very good today. She has been ambulating in the hallway. She is on room air. She is eating well. Her pain is better controlled. Her blood pressure is better. She sounds very good on auscultation. Unfortunately, the patient still has an air leak with a small pneumothorax on water seal. We are going to have to continue her chest tube for another day. I spoke to Pathology yesterday and her pathology is not going to be back until early next week.
[2019-11-16] MEDS: cloNIDine HCL 0.3 MG/24 HR TRANSDERM SYS TD SCH (16:03)
[2019-11-17] MEDS: ACETAMINOPHEN 1,000 MG/100 ML VIAL IV SCH (06:04)
[2019-11-17 06:15] LABS: Creatinine Clr Calc Pharmacy 89.7 ml/min; Est GFR (African American) 112.1; Est GFR (Non-African American) 96.7
[2019-11-17] MEDS: CHECK CLONIDINE PATCH PLACEMENT SCH (07:55)
[2019-11-17] MEDS: METOCLOPRAMIDE HCL INJ 5 MG/ML 2 ML VIAL IV SCH (07:56)
[2019-11-17] MEDS: UMECLIDINIUM/VILANTEROL 62.5/25MCG 7 PUFFS/INHALER INH SCH (08:33)
[2019-11-17] MEDS: DOCUSATE SODIUM 100 MG CAP PO SCH (08:34)
[2019-11-17] MEDS: carvediloL 25 MG TAB PO SCH (08:34)
[2019-11-17] MEDS: CALCIUM 600MG + VIT D 400 IU TAB PO SCH (08:34)
[2019-11-17] MEDS: LOSARTAN POTASSIUM 50 MG TAB PO SCH (08:35)
[2019-11-17] MEDS: LACTOBACILLUS ACIDOPHILUS (FLORANEX) TAB PO SCH (08:36)
[2019-11-17] MEDS: ENOXAPARIN INJ 40 MG/0.4 ML SYR SQ SCH (08:36)
--- NOTE | 2019-11-17 11:09 | XRay Report ---
XR chest 1V portable CLINICAL HISTORY: chest tube removal COMPARISON STUDY: 11/16/2019 FINDINGS: Postsurgical changes are present within the left hemithorax. There has been interval remova l of the left-sided chest tube. There is no pneumothorax. There is postsurgical left lung volume loss . There is no focal pulmonary consolidation. There is stable minimal blunting of the right lateral co stophrenic angle. Minor basilar opacities are likely atelectatic.[ IMPRESSION: No evidence of significant pneumothorax status post left-sided chest tube removal. ACT 112: Negative or not required by law. Electronically signed by: Otilio Hylton M.D. 11/17/2019 11:08 AM
--- NOTE | 2019-11-17 12:53 | Discharge Summary (DS) ---
DISCHARGE DIAGNOSIS: Adenocarcinoma of left upper lobe. HOSPITAL COURSE: Elizabeth Drew is a very nice 74-year-old active cigarette smoker, although she has cut back to about a cigarette a day, who presented with a left upper lobe mass and has undergone a workup. She underwent a needle biopsy, proven adenocarcinoma; however, she did not appear to have extrathoracic spread. Having said that, she was not felt to be a candidate for lobectomy. She also had some ground-glass opacities on the right side. We discussed this at our multidisciplinary cancer conference. Unfortunately, we did not get genomic studies on the biopsy as there was not enough tissue. There are many options. We discussed simply watching her. However, this was a cancer in her left upper lobe, we elected not to do that. After a long discussion, we elected to proceed with resection of this with a sublobar resection robotically and to do a lymph node dissection and we would see our results. We will follow the right side with a CT scan. We discussed this multiple times with Dr. Clayton and the patient and her family, especially her daughter. They understand. On 11/14/2019, the patient underwent uncomplicated wedge resection. We got good margins on this. I also did a full lymph node dissection on the left. She did well; however, she had a small air leak. She did have emphysematous lungs. She was ambulating in the hallway and tolerating a regular diet, although she had a fairly significant amount of pain. She was able to get off the oxygen quite quickly and was on room air, tolerating a diet and she is moving her bowels. Her air leak slowly resolved. On postop day #3, I removed her chest tube and her post-chest tube removal chest x-ray showed no evidence of pneumothorax. She has no infiltrates. She looked quite good. I discharged her home on postop day #3. I will see her back in the office later this week to go over her final pathology. She tolerated it well.
== END 2019-11-17 11:56 | disposition home or self-care (01) | DRG 164 ==
LOC: ASU 08:27 → 3E 13:27

== ENCOUNTER 2022-08-08 07:12 | Observation (INO) ==
--- NOTE | 2022-07-11 09:17 | PAT Medication Instructions ---
Medication Instructions Date of Service July 11, 2022 Home Medications Medication Instructions Recorded hydrochlorothiazide 25 mg tablet 25 mg PO QAM #90 tabs 02/16/22 albuterol sulfate 90 mcg/actuation 2 puff inhalation Q6H PRN 03/04/22 aerosol inhaler Shortness Of Breath Or Wheezing #18 grams carvedilol 25 mg tablet 25 mg PO BID #180 tabs 04/14/22 potassium chloride 20 mEq 20 meq PO BID #180 tabs 04/14/22 tablet,extended release umeclidinium 62.5 mcg-vilanterol 1 inh inhalation QAM #3 Inhalers 05/05/22 25 mcg/actuation powdr for inhalation (Anoro Ellipta) Lactobacillus acidophilus-Bifidobac.animalis 31 billion cell capsule 1 cap PO UD calcium carbonate 600 mg-vitamin D3 5 mcg (200 unit) tablet 1 tab PO BID hydrochlorothiazide 25 mg tablet 25 mg PO QAM albuterol sulfate 90 mcg/actuation aerosol inhaler 2 puff inhalation Q6H PRN Shortness Of Breath Or Wheezing carvedilol 25 mg tablet 25 mg PO BID potassium chloride 20 mEq tablet,extended release 20 meq PO BID vitamin B complex (B Complex-Vitamin B12 tablet) 1 tab PO QPM umeclidinium 62.5 mcg-vilanterol 25 mcg/actuation powdr for inhalation (Anoro Ellipta) 1 inh inhalation QAM acetaminophen 325 mg tablet 325 mg PO BID bismuth subsalicylate 262 mg chewable tablet (Pepto-Bismol) 2 tab PO QID PRN gerd diclofenac sodium 1 % topical gel 2 g topical QID telmisartan 40 mg tablet (Micardis) 40 mg PO QAM ASK your surgeon for instructions diclofenac sodium 1 % topical gel 2 g topical QID DO NOT take the morning of surgery Lactobacillus acidophilus-Bifidobac.animalis 31 billion cell capsule 1 cap PO UD calcium carbonate 600 mg-vitamin D3 5 mcg (200 unit) tablet 1 tab PO BID hydrochlorothiazide 25 mg tablet 25 mg PO QAM potassium chloride 20 mEq tablet,extended release 20 meq PO BID bismuth subsalicylate 262 mg chewable tablet (Pepto-Bismol) 2 tab PO QID PRN gerd telmisartan 40 mg tablet (Micardis) 40 mg PO QAM Take morning of surgery With a small sip of water, OTHERWISE NOTHING TO EAT OR DRINK AFTER MIDNIGHT: albuterol sulfate 90 mcg/actuation aerosol inhaler 2 puff inhalation Q6H PRN Shortness Of Breath Or Wheezing (use if needed; please bring rescue inhaler with you to hospital day of surgery if possible) carvedilol 25 mg tablet 25 mg PO BID umeclidinium 62.5 mcg-vilanterol 25 mcg/actuation powdr for inhalation (Anoro Ellipta) 1 inh inhalation QAM acetaminophen 325 mg tablet 325 mg PO BID Take evening before surgery calcium carbonate 600 mg-vitamin D3 5 mcg (200 unit) tablet 1 tab PO BID albuterol sulfate 90 mcg/actuation aerosol inhaler 2 puff inhalation Q6H PRN Shortness Of Breath Or Wheezing (if needed) carvedilol 25 mg tablet 25 mg PO BID potassium chloride 20 mEq tablet,extended release 20 meq PO BID vitamin B complex (B Complex-Vitamin B12 tablet) 1 tab PO QPM acetaminophen 325 mg tablet 325 mg PO BID bismuth subsalicylate 262 mg chewable tablet (Pepto-Bismol) 2 tab PO QID PRN gerd (if needed) Other Notes If you have any questions please call us at [phone] or [phone] or [phone] or [phone]
--- NOTE | 2022-07-12 12:09 | Anesthesiology Consultation ---
Date of Service July 12, 2022 Assessment & Plan (1) Encounter for pre-operative examination: - COVID screening: Per assessment on 07/12: No known COVID-19 positive contacts or current COVID-19 related symptoms. Travel screen negative. Patient vaccinated. At surgeon discretion if preop Covid testing being done. - Outpatient joint assessment: Pt currently scheduled for inpatient pathway. If surgeon requests review for outpatient joint pathway, patient is not recommended candidate for outpatient joint program from anesthesia standpoint. Chart Review Chart Review: Acceptable Risk for Surgery and Patient seen in Pre Admission Testing Teaching & Discussion Pre-Anesthesia Teaching/Discussion Notes: Instructed NPO after midnight before surgery,except medications with 15 cc of water. Medication instructions provided according to the PAT guidelines. History Surgery Operation Date: 08/08/22 10:40 Proposed Procedures p Right Total Knee Arthroplasty - Tarik Mcgowan DO Height/Weight Height: 5 ft 6 in Weight: 62 kg Allergies Allergy/AdvReac Type Severity Reaction Status Date / Time codeine AdvReac Intermediate Nausea Verified 07/12/22 12:06 azithromycin AdvReac Mild Diarrhea Verified 07/08/22 10:35 lactose AdvReac Mild Diarrhea Verified 07/08/22 10:35 nickel AdvReac Mild Rash Verified 07/08/22 10:35 Medications Home Medications Medication Instructions Recorded Confirmed Last Taken Lactobacillus 1 cap PO UD 03/12/19 07/08/22 07/31/21 acidophilus-Bifidobac.animalis 31 billion cell capsule calcium carbonate 600 mg-vitamin 1 tab PO BID 03/12/19 07/08/22 07/31/21 D3 5 mcg (200 unit) tablet hydrochlorothiazide 25 mg tablet 25 mg PO QAM #90 tabs 02/16/22 07/08/22 Unknown albuterol sulfate 90 mcg/actuation 2 puff inhalation Q6H PRN 03/04/22 07/08/22 Unknown aerosol inhaler Shortness Of Breath Or Wheezing #18 grams carvedilol 25 mg tablet 25 mg PO BID #180 tabs 04/14/22 07/08/22 Unknown potassium chloride 20 mEq 20 meq PO BID #180 tabs 04/14/22 07/08/22 Unknown tablet,extended release vitamin B complex (B 1 tab PO QPM 04/14/22 07/08/22 Unknown Complex-Vitamin B12 tablet) umeclidinium 62.5 mcg-vilanterol 1 inh inhalation QAM #3 Inhalers 05/05/22 07/08/22 Unknown 25 mcg/actuation powdr for inhalation (Anoro Ellipta) acetaminophen 325 mg tablet 325 mg PO BID 07/08/22 07/08/22 Unknown bismuth subsalicylate 262 mg 2 tab PO QID PRN gerd 07/08/22 07/08/22 Unknown chewable tablet (Pepto-Bismol) diclofenac sodium 1 % topical gel 2 g topical QID 07/08/22 07/08/22 Unknown telmisartan 40 mg tablet (Micardis) 40 mg PO QAM 07/08/22 07/08/22 Unknown Past Medical History Medical History Abnormal glucose A1C 6.0% 03/31/22, diet controlled COPD with emphysema Eczema Flares during winter GERD (gastroesophageal reflux disease) Hearing loss B/L hearing aids Hiatal hernia History of lung cancer Dx 2019, s/p surgery + chemo HTN (hypertension) Hyponatremia Chronic, baseline sodium in the low 130s per chart review Osteopenia Exercise / Class Metabolic Activity II 4-5 Yardwork/Stairs/Walk up hill Past Family History Family History Father , 87yo Type 2 diabetes mellitus Myocardial infarction Mother , 49yo Cerebral aneurysm Sister No problems noted. Son No problems noted. Daughter No problems noted. Other No family history of adverse response to anesthesia Denies family history of Colon cancer Ovarian cancer Prostate cancer Crohn's disease Past Surgical History Surgical History H/O esophagogastroduodenoscopy History of cataract surgery History of colonoscopy History of lung biopsy History of lung surgery Left Robotic Video Assisted Thoracoscopy with Left Upper Wedge Resection and Mediastinal Lymphadenectomy (11/14/19) at [facility] Past Anesthesia History No Hx of Anesthesia Complications and No Family Hx of Anesthesia Complications History of PONV No Hx of PONV and No Hx of Motion Sickness Social History Smoking Status: Former smoker tobacco type: cigarettes Do You Dip or Chew Tobacco: No Smoking End Date: 2019 Hx Alcohol Use: Yes Alcohol type: beer alcohol intake frequency: 0-2 drinks per day (2 drinks per day) Hx Substance Use: No substance use type: does not use Review of Systems Patient denies chest pain, shortness of breath, dyspnea on exertion, fever, chills, cough, wheezing, palpitations. Physical Exam Vital Signs VITALS BP 158/82 P 59 TEMP 98.0 SP02 98%RA RESP 16 PHYSICAL Decreased cervical extension range of motion. Full TMJ range of motion. TMD 4 finger breaths Mallampati Score 2 Dentition: intact, + several overlays/dental work Lungs: Diminished breath sounds DOUG, otherwise clear to auscultation Cardiac: regular rate and rhythm, no murmurs noted Spine: normal Carotid arteries: negative bruit Extremities: no edema Lab Results Anesthesia Preop Results Results Anesthesia Widget: WBC 4.77 K/ul (4.8-10.8) L 07/12/22 Hgb 13.2 g/dl (12.0-16.0) 07/12/22 Hct 37.9 % (34.1-44.9) 07/12/22 Plt 266 K/uL (130-400) 07/12/22 Na 130 mmol/L (136-145) L 07/12/22 K 3.6 mmol/L (3.5-5.1) 07/12/22 Cl 96 mmol/L (98-107) L 07/12/22 CO2 27 mmol/L (21-32) 07/12/22 BUN 14 mg/dl (6-23) 07/12/22 Creat 0.53 mg/dl (0.6-1.2) L 07/12/22 Glucose Level 94 mg/dl (70-99(Fasting)) 07/12/22 PT 11.4 Seconds (9.0-12.0) 07/12/22 PTT 29.9 Seconds (21.0-31.0) 07/12/22 INR 1.1 (0.9-1.1) 07/12/22 Blood Type A Positive 07/12/22 Antibody Screen NEGATIVE 07/12/22 Testing Laboratory Results Chronic hyponatremia with baseline sodium in the low 130s per chart review. Preop sodium 130- at anesthesiologist discretion AM DOS if recheck level needed preoperatively from their perspective* Electrocardiogram Date: 07/12/22 SB with first degree AVB at 56bpm. Minimal voltage criteria for LVH, may be normal variant. Echocardiogram Date: 11/05/19 EF 60-65%. No RWMA. Mild TR. Pulmonary Function Test Date: 03/04/22 Moderate COPD, insignificant bronchodilator response. Normal TLC with moderate decrease in ERV. Moderate decrease in DLCO. Increased post FVC by 300mL, increased post FEV 1 by 200mL, improved air trapping compared to 09/2019. Other Testing Chest CT (06/22/22) The central airways are patent. No significant change in the multiple scattered solid and groundglass nodules seen throughout the lungs. No new nodules identified. Continued [address] follow-up recommended. R left upper lobe wedge resection. No lymphadenopathy. Emphysema. Trace pericardial effusion, unchanged. COVID-19 Risk Screen Screening Information COVID-19 Screen Date: 07/12/22 Exposure 21 Days Family/Household +COVID Last 21 Days: No Exposure 10 Days Any COVID Exposure Last 10 Days: No Symptoms Last 10 Days Experienced COVID Sx Last 10 Days: No + COVID 0-90 Days COVID + in Last 0-90 Days: No
[~2022-08-08 07:12] MED LIST changes: +ACETAMINOPHEN 500 MG TAB PO SCH; +BUPIVACAINE 0.5 % 5 MG/1 ML PF 10ML VIAL ONE; +GABAPENTIN 300 MG CAP PO SCH; -LR 15ML/HR IV SCH; +LR 500ML BOLUS, THEN 15ML/HR IV SCH; +LR 60ML/HR IV SCH; +ORTHO JOINT MIX INFIL SCH; +TRANEXAMIC ACID 1,000 MG **IV Intra-op IV SCH; +TRANEXAMIC ACID 1,000 MG **IV Pre-op IV SCH; +ceFAZolin 2000MG 2,000 MG/15 ML SYR IV SCH; +dexAMETHasone 4 MG TAB PO SCH
[2022-08-08] MEDS ORDERED: MIDAZOLAM HCL 1 MG/ML 2ML VIAL ONE (09:39)
[2022-08-08] MEDS: FAMOTIDINE 20 MG TAB PO SCH ×2 (09:42→10:15)
[2022-08-08] MEDS ORDERED: PROPOFOL IV EMULSION 10 MG/ML 20 ML VIAL IV ONE (10:47)
--- NOTE | 2022-08-08 10:56 | History & Physical Bridge Note ---
Date of Service August 08, 2022 History & Physical Bridge Note I have examined the patient, reviewed the History & Physical and in the interval since the performance of the History & Physical I have noted the following changes of clinical significance: no changes noted
[2022-08-08] MEDS ORDERED: ORTHO JOINT ANESTHETIC ONE (11:44)
[2022-08-08] MEDS ORDERED: DEXAMETHASONE SOD INJ 4 MG/ML VIAL ONE (11:54)
[2022-08-08] MEDS ORDERED: EPINEPHrine INJ 1 MG/ML AMP ONE (11:54)
[2022-08-08] MEDS ORDERED: BUPIVACAINE 0.25% 30 ML VIAL ONE (11:54)
[2022-08-08] MEDS ORDERED: fentaNYL citrate 100 MCG/2 ML VIAL IV PRN (12:38)
[2022-08-08] MEDS ORDERED: ATROPINE SULFATE 0.1 MG/ML 10ML SYR IV PRN (12:38)
[2022-08-08] MEDS ORDERED: ePHEDrine sulfate 50 MG/ML AMP IV PRN (12:38)
[2022-08-08] MEDS ORDERED: ONDANSETRON INJ 2 MG/ML 2 ML VIAL IV PRN ×2 (12:38→15:18)
[2022-08-08] MEDS ORDERED: PROMETHAZINE HCL 6.25 MG in SODIUM CHLORIDE 0.9% 50 ML IV PRN (12:38)
--- NOTE | 2022-08-08 13:27 | Operative Report ---
PG Post Operative Report Pre & Post Diagnosis Operation Date: 08/08/22 11:40 Pre-Op Diagnosis: Degenerative joint disease, right knee. Post-Op Diagnosis: Degenerative joint disease, right knee. I identified the patient and participated in the time-out.: Yes Procedure Operation Date: 08/08/22 11:40 Actual Procedures p Right Total Knee Arthroplasty, Cemented(Right) - Tarik Mcgowan DO Surgeon Tarik Mcgowan DO First Assist Willis Martini PA-C Estimated Blood Loss 10 Findings Consistent with Post-Op Diagnosis Specimens Right femoral and tibial bone Description of Procedure Implants used: I used a Patt Persona total knee arthroplasty system with a size 6 standard femur, D tibia, 28 oval patella, and a size 11 medial congruent polyethylene bearing. All components were cemented in place with Biomet cement. [facility] for the above procedure. She was seen in the preoperative holding area and the operative extremity was identified and signed. She was given a preoperative antibiotic, TXA, a spinal anesthetic and an adductor nerve block. She was taken back to the operating room and laid on the table in supine position. She was given basic sedation. The operative knee was then prepped and draped in sterile fashion. A timeout was done, and the patient and the operative extremity was properly identified. A midline incision was made directly over the patella. Dissection was taken down to the extensor mechanism. A subvastus arthrotomy was used. The medial retinaculum was released and the fat pad was mostly excised. The knee was flexed and the ACL, PCL, and meniscus were removed. A drill was sent down the center of the femoral canal followed by an intramedullary lucia. Off that lucia a distal femoral cutting block was placed. 9 mm was resected off the distal femur at 5 of valgus. A posterior referencing AP sizing guide was then placed on the distal femur. The femur measured to be a size 6. 2 drill holes were placed in 3 of external rotation. A 4-in-1 cutting block was then impacted into place. Anterior, posterior, and chamfer cuts were then made. The proximal tibia was then exposed. An external tibial alignment guide was placed. A tibial cut guide was then anchored in place and the proximal tibia was then resected. The posterior aspect of the knee was then opened up and any additional meniscus fragments and osteophytes were removed. The tibia measured to be a size D. The tibial plate was then placed in the appropriate rotation and the tibia was drilled and punched. Trial components were then placed. I used a size 11 medial congruent polyethylene insert. The knee was brought through a full range of motion and felt to be stable. The peg holes for the femoral component were then drilled. The patella was then everted and 9 mm was resected off the posterior aspect of the patella. The patella measured to be a size 28 oval. 3 peg holes were then drilled. A trial patella was placed. The knee was once again brought through a full range of motion and felt to be stable. Trial components were then removed. The surrounding soft tissues were injected with 100 cc of an orthopedic pain control cocktail. All components were then cemented into place with Biomet cement. The final polyethylene insert was then snapped into place. Once cement was dry the tourniquet was deflated. Hemostasis was obtained. A dilute betadyne lavage was then done for 3 minutes. The joint was then irrigated with normal saline solution. The subvastus arthrotomy was then closed with #1 Vicryl suture. The skin was closed with 2-0 Vicryl, 3-0V lock suture, and nell. A soft compressive dressing was placed. She was then transferred to a hospital bed and taken to the postanesthesia care unit in stable condition. She tolerated the procedure well. Tarik Burgess PA-C, was present for the entire procedure. He was critical for patient positioning, prepping, draping, retraction exposure, wound closure and application of sterile dressing. I attest to the content of the Intraoperative Record and any orders documented therein. Any exceptions are noted below.
--- NOTE | 2022-08-08 14:12 | XRay Report ---
XR knee RT 1 or 2V routine CLINICAL HISTORY: Postoperative evaluation. COMPARISON: Knee radiographs July 12, 2022 FINDINGS: Alignment of the total right knee arthroplasty is anatomic. There is no periprosthetic fra cture or unexpected radiopaque foreign body. There are skin nell. IMPRESSION: Expected findings following total right knee arthroplasty. ACT 112: Negative or not required by law. Electronically signed by: Corwin Leslie M.D. 08/08/2022 2:11 PM
--- NOTE | 2022-08-08 15:02 | Anesthesiology Progress Note ---
Date of Service August 08, 2022 Anesthesia Post Procedure Vital Signs Vital Signs: Temp Pulse Pulse Resp BP BP Pulse Ox 08/08/22 14:55 36.5 C 55 L 17 163/69 H 94 08/08/22 14:45 54 L 18 161/66 H 92 08/08/22 14:35 57 L 16 156/69 H 91 08/08/22 14:25 53 L 13 145/57 H 93 08/08/22 14:15 51 L 14 155/58 H 93 08/08/22 14:05 57 L 14 153/68 H 92 08/08/22 13:55 54 L 15 151/81 H 94 08/08/22 13:45 36.4 C L 56 L 15 124/56 L 97 08/08/22 09:25 36.6 C 62 20 198/84 H 97 O2 Del Method O2 Flow Rate 08/08/22 14:55 Room Air 08/08/22 14:45 Room Air 08/08/22 14:35 Room Air 08/08/22 14:25 Room Air 08/08/22 14:15 Room Air 08/08/22 14:05 Room Air 08/08/22 13:55 Room Air 08/08/22 13:45 Oxymask 4 08/08/22 09:25 Room Air Transfer of Care Handoff Completed per policy Notes Mental Status: alert / awake / arousable Patient Amnestic to Procedure: Yes Nausea / Vomiting: adequately controlled Pain: adequately controlled Airway Patency, RR, SpO2: stable & adequate BP & HR: stable & adequate Hydration State: stable & adequate Neuraxial Anesthesia: was administered and sensory block is resolving Anesthetic Complications: no major complications apparent and Pt Satisfied with anesthetic care
[2022-08-08] MEDS ORDERED: MAGNESIUM HYDROXIDE SUSP 30 ML UDC PO PRN (15:18)
[2022-08-08] MEDS ORDERED: BIFIDOBACTERIUM ANIMALIS PO SCH (15:18)
[2022-08-08] MEDS ORDERED: LACTOBACILLUS ACIDOPHILUS PO SCH (15:18)
[2022-08-08] MEDS ORDERED: bisacodyL 10 MG SUPP PR PRN (15:18)
[2022-08-08] MEDS ORDERED: BISMUTH SUBSALICYLATE 262 MG CHEW PO PRN (15:18)
[2022-08-08] MEDS ORDERED: NALOXONE HCL 0.4 MG/1 ML VIAL/CARP IV PRN (15:18)
[2022-08-08] MEDS ORDERED: METOCLOPRAMIDE HCL INJ 5 MG/ML 2 ML VIAL IV PRN (15:18)
[2022-08-08] MEDS ORDERED: oxyCODONE HCL IR 5 MG TAB (IMMEDIATE RELEASE) PO PRN (15:18)
[2022-08-08] MEDS: SODIUM CHLORIDE 0.9% 1000ML 1,000 ML IV SCH (15:41)
[2022-08-08] MEDS: KETOROLAC TROMETHAMINE 15 MG/ML VIAL IV SCH ×2 (15:57→19:50)
[2022-08-08] MEDS: CALCIUM 600MG + VIT D 400 IU TAB PO SCH (19:49)
[2022-08-08] MEDS: POTASSIUM CHLORIDE CRTAB 20 MEQ TABCR PO SCH (19:49)
[2022-08-08] MEDS: DOCUSATE SODIUM 100 MG CAP PO SCH (19:51)
[2022-08-08] MEDS: carvediloL 25 MG TAB PO SCH (19:52)
[2022-08-08] MEDS: ceFAZolin 2000MG 2,000 MG/15 ML SYR IV SCH (19:57)
[2022-08-08] MEDS ORDERED: VITAMIN B COMPLEX TAB PO SCH (21:00)
[2022-08-08] MEDS ORDERED: SENNA 8.6 MG TAB PO SCH (21:00)
[2022-08-09] MEDS: KETOROLAC TROMETHAMINE 15 MG/ML VIAL IV SCH ×2 (05:00→10:00)
[2022-08-09] MEDS: ceFAZolin 2000MG 2,000 MG/15 ML SYR IV SCH (05:00)
--- NOTE | 2022-08-09 07:19 | Orthopedic Progress Note ---
Date of Service August 09, 2022 Assessment & Plan (1) Status post right knee replacement: Overall she is doing very well. She is not any much pain in the right knee. She will be seen by physical therapy today for ambulation and range of motion exercises. She is on aspirin for DVT prophylaxis. She has Percocet at home from her previous procedure. She can be discharged home later today. She will follow-up with orthopedics in 2 weeks. Mary Ellen Johnson was seen and examined at bedside this morning. Overall she is doing very well. She is not any much pain in the right knee. She has been up and ambulating to the bathroom. She has no complaints.. Review of Systems All systems reviewed & are unremarkable except as noted in HPI & below. Physical Exam On physical examination the right knee, the dressing is clean and dry. Her leg is out to full extension. She has active dorsiflexion and plantarflexion of her right ankle.. Results & Data Results & Data Laboratory Results . Diagnostic Findings Postoperative x-rays of the right knee show the prosthesis to be in anatomic alignment without any evidence of fracture, desiccation, or loosening.. PG Care Time/CCT Total # of Minutes Spent Total Time Spent with Patient: Total time spent is greater than 50% in coordination of care (as documented) at patient's floor/unit and/or counseling patient: Coding Level of Care Code 70149 Post Operative Follow-Up Diagnoses Status post right knee replacement Z96.651
--- NOTE | 2022-08-09 07:20 | Discharge Summary ---
Date of Service August 09, 2022 Principal Diagnosis Same as "Discharge Diagnosis" noted below under Discharge Instructions. Discharge Exam On physical examination the right knee, the dressing is clean and dry. Her leg is out to full extension. She has active dorsiflexion and plantarflexion of her right ankle.. Discharge Data Procedures Performed Operation Date: 08/08/22 11:40 Actual Procedures p Right Total Knee Arthroplasty, Cemented(Right) - Tarik Mcgowan DO Ordered Studies 08/08/22 05:00 US - OR guided needle placemen Routine Hospital Course (1) Status post right knee replacement: On August 08, 2022 Elizabeth arrived at [facility] and underwent a right knee replacement without complication. She had a spinal anesthetic. Postoperatively she was started on aspirin for DVT prophylaxis and transferred to the general orthopedic floors. Her hospital course was uneventful. On postop day #1, her vital signs were stable and her pain was well controlled. She was able to participate well with physical therapy doing ambulation and range of motion exercises. She was then discharged home. She will follow-up with orthopedics in 2 weeks. PG Care Time/CCT Total # of Minutes Spent Total Time Spent with Patient: Total time spent is greater than 50% in coordination of care (as documented) at patient's floor/unit and/or counseling patient: Discharge Plan Discharge Items Patient Disposition: Home - Home Health Services Reason For Visit: DJD Right Knee Discharge Diagnosis: Right knee replacement Activity: Per Instructions section Non-emergency contact: Surgeon Call non-emergency contact if: your wound has increased redness and your wound has increased drainage Follow-up/Referrals: Pro,Edward Mccoy MD [Primary Care Provider] - Diet: Regular Addtl Attending Provider Instructions: Activity and Therapy Recommendations: * If you are using [facility] then therapy will be provided at your home until they feel you have accomplished all of your goals. * If you are using [facility] then Physical Therapy will be provided until they feel you are ready to start Outpatient Physical Therapy. * If you are not using home therapy then Outpatient Physical Therapy should start about 3-5 days from your day of surgery. Therapy will last about 6-10 w eeks * It is important not to put a pillow under your knee when you are relaxing or sleeping. It is just as important to make sure you are getting your knee perfectly straight as it is to regain your knee bend. * You were shown a series of exercises in the hospital. Do these exercises three times each day including the exercises you were shown in physical therapy. * Get up and walk several times each day. For the first four weeks, try not to stand or walk for more than one hour at a time. If you do stand or walk for more than one hour, you will not hurt anything, but your leg will likely swell . * As you feel comfortable, you may change from the walker or crutches to a cane and then to independent walking. Medications: * Narcotic You will likely be sent home from the hospital with a prescription for the narcotic pain medication that worked best throughout your stay. * Aspirin Most patients will be required to take Aspirin 81mg twice a day for 6 weeks after surgery. This is obtained [id number] and a prescription is not necessary. * Other medications may be prescribed for specific circumstances. If you have any questions, please call the office at . * Resume previous home medications unless otherwise instructed TEDs/Elastic Stockings: The white elastic stockings help limit swelling and prevent blood clots from forming in your legs.~ The more you wear them, the more they work. Wear them for six weeks. Dressing Care: The dressing can be changed after physical therapy on postop day #1. Daily dry dressing changes for a few days, especially if the incision is still draining some. If the incision is not draining then you may leave the nell open to air. If there is a little bit of drainage or if the nell are getting stuck on your clothing then cover the incision with a dry dressing. The nell will be removed at your 2 week follow-up appointment. Showering: You may shower 5 days from the day of surgery as long as the incision is no longer draining. You may shower with the nell exposed. Let soapy water run over the nell and pat them dry. Do not scrub or soak the incision. Things To Watch For: * Drainage from the incision site that occurs more than one week after your surgery. * Increased redness at the incision site. * Fever above 102 degrees Fahrenheit. * Unusual chest pain or shortness of breath. * Call [facility] at with any of the above problems Follow-Up Visit: Follow-up with Dr. Mcgowan's PA (Tarik Burgess) 2-3 weeks after your day of surgery. He will remove your nell and answer any questions. If you have any additional questions or concerns, Dr Mcgowan is usually in the office at the same time and will be available An appointment was probably scheduled when you signed-up for surgery in the office. If you have any questions call Office Instructions: More detailed instructions as well as Frequently Asked Questions were provided in a folder by our office when you signed-up for surgery. Please review these instructions when you get home. If you have any further questions or concerns, please feel free to call the office at [phone] Pending Studies at Discharge: No Stand-Alone Forms: My [facility] Medications and DC Order Prescriptions: New aspirin 81 mg Tablet,Delayed Release (Dr/Ec) 81 mg PO BID 42 Days Qty: 84 0RF Continued hydrochlorothiazide 25 mg tablet 25 mg PO QAM Qty: 90 3RF L. acidophilus/Bifid. animalis 31 billion cell capsule 1 cap PO UD calcium carbonate-vitamin D3 600 mg(1,500mg) -200 unit tablet 1 tab PO BID albuterol sulfate 90 mcg/actuation HFA aerosol inhaler 2 puff INH Q6H PRN (Reason: Shortness Of Breath Or Wheezing) Qty: 18 2RF vitamin B complex [B Complex-Vitamin B12] Tablet 1 tab PO QPM carvedilol 25 mg tablet 25 mg PO BID Qty: 180 3RF potassium chloride 20 mEq tablet extended release 20 meq PO BID Qty: 180 3RF telmisartan [Micardis] 40 mg tablet 40 mg PO QAM acetaminophen 325 mg Tablet 325 mg PO BID bismuth subsalicylate [Pepto-Bismol] 262 mg Tablet,Chewable 2 tab PO QID PRN (Reason: gerd) diclofenac sodium [Voltaren] 1 % Gel 2 g TOPICAL QID Rx Instructions: apply to single elbow, wrist or hand; for hand includes palm/fingers/back of hand Discharge Orders: Discharge Order (Routine); Ordered 08/09/22 Ordered By: Tarik Mcgowan Admission Data Admit Date/Time: 08/08/22 13:56 Attending Provider: Juan M,Atrik A Admit Provider: Juve Martini Primary Care Provider: Edward Harman
[2022-08-09] MEDS ORDERED: oxyCODONE HCL IR 5 MG TAB (IMMEDIATE RELEASE) PO PRN (08:00)
[2022-08-09] MEDS ORDERED: dexAMETHasone 4 MG TAB PO SCH (08:00)
[2022-08-09] MEDS: carvediloL 25 MG TAB PO SCH (08:05)
[2022-08-09] MEDS: CALCIUM 600MG + VIT D 400 IU TAB PO SCH (08:05)
[2022-08-09] MEDS: DOCUSATE SODIUM 100 MG CAP PO SCH (08:05)
[2022-08-09] MEDS: POTASSIUM CHLORIDE CRTAB 20 MEQ TABCR PO SCH (08:06)
[2022-08-09] MEDS ORDERED: ASPIRIN 81 MG ECTAB PO SCH (09:00)
[2022-08-09] MEDS ORDERED: hydroCHLOROthiazide 25 MG TAB PO SCH (09:00)
[2022-08-09] MEDS ORDERED: MULTIVITAMIN TAB PO SCH (09:00)
[2022-08-09] MEDS ORDERED: TELMISARTAN 40 MG TAB PO SCH (09:00)
[2022-08-09] MEDS: SODIUM CHLORIDE 0.9% 1000ML 1,000 ML IV SCH (11:18)
== END 2022-08-09 15:57 | disposition home health service (06) ==
LOC: 3E 07:12 → ASU 07:12

== ENCOUNTER 2024-10-07 06:28 | Inpatient (IN) ==
--- NOTE | 2024-09-11 13:01 | PAT Medication Instructions ---
Medication Instructions Date of Service September 11, 2024 Home Medications Medication Instructions Recorded hydrochlorothiazide 25 mg tablet 25 mg PO QAM #90 tabs 02/05/24 denosumab 60 mg/mL subcutaneous 60 mg subcut ONCE #1 mL 04/11/24 syringe (Prolia) albuterol sulfate 90 mcg/actuation 2 puff inhalation Q6H PRN 04/20/24 aerosol inhaler Shortness Of Breath Or Wheezing #18 grams carvedilol 25 mg tablet 25 mg PO BID #180 tabs 04/30/24 potassium chloride 20 mEq 20 meq PO BID #180 tabs 04/30/24 tablet,extended release calcium 600 mg (as carbonate)-vitamin D3 5 mcg (200 unit) tablet 1 tab PO BID melatonin 5 mg capsule 5 mg PO DAILY PRN hydrochlorothiazide 25 mg tablet 25 mg PO QAM denosumab 60 mg/mL subcutaneous syringe (Prolia) 60 mg subcut ONCE albuterol sulfate 90 mcg/actuation aerosol inhaler 2 puff inhalation Q6H PRN carvedilol 25 mg tablet 25 mg PO BID potassium chloride 20 mEq tablet,extended release 20 meq PO BID budesonide 3 mg capsule,delayed,extended release 3 mg PO QAM olmesartan 40 mg tablet 40 mg PO QAM umeclidinium 62.5 mcg-vilanterol 25 mcg/actuation powdr for inhalation (Anoro Ellipta) 1 inh inhalation QAM ASK your prescriber and surgeon denosumab 60 mg/mL subcutaneous syringe (Prolia) 60 mg subcut ONCE DO NOT take the morning of surgery calcium 600 mg (as carbonate)-vitamin D3 5 mcg (200 unit) tablet 1 tab PO BID hydrochlorothiazide 25 mg tablet 25 mg PO QAM potassium chloride 20 mEq tablet,extended release 20 meq PO BID olmesartan 40 mg tablet 40 mg PO QAM Take morning of surgery With a small sip of water, OTHERWISE NOTHING TO EAT OR DRINK AFTER MIDNIGHT: albuterol sulfate 90 mcg/actuation aerosol inhaler 2 puff inhalation Q6H PRN(use if needed; please bring with you to hospital day of surgery if possible) carvedilol 25 mg tablet 25 mg PO BID budesonide 3 mg capsule,delayed,extended release 3 mg PO QAM umeclidinium 62.5 mcg-vilanterol 25 mcg/actuation powdr for inhalation (Anoro Ellipta) 1 inh inhalation QAM Take evening before surgery calcium 600 mg (as carbonate)-vitamin D3 5 mcg (200 unit) tablet 1 tab PO BID melatonin 5 mg capsule 5 mg PO DAILY PRN(if needed) albuterol sulfate 90 mcg/actuation aerosol inhaler 2 puff inhalation Q6H PRN(if needed) carvedilol 25 mg tablet 25 mg PO BID potassium chloride 20 mEq tablet,extended release 20 meq PO BID Other Notes If you have any questions please call us at [phone] or [phone] or [phone] or [phone]
--- NOTE | 2024-09-19 13:06 | Anesthesiology Consultation ---
Date of Service September 19, 2024 Assessment & Plan (1) Encounter for pre-operative examination: - Check BSG DOS - Infectious disease screening: Per assessment on 09/19/24- No known recent infectious disease contacts or current infectious disease symptoms. Chart Review Chart Review: Acceptable Risk for Surgery and Patient seen in Pre Admission Testing Teaching & Discussion Pre-Anesthesia Teaching/Discussion Notes: Instructed NPO after midnight before surgery,except medications with 15 cc of water. Medication instructions provided according to the PAT guidelines. History Surgery Operation Date: 10/07/24 07:30 Proposed Procedures p L3-L4, L4-L5 Laminectomy, L4-L5 Lateral Lumbar Interbody Fusion with Spinal Cord Monitoring - Mario Alberto Canales MD Height/Weight Height: 5 ft 5 in Weight: 57.7 kg Allergies Allergy/AdvReac Type Severity Reaction Status Date / Time codeine AdvReac Intermediate Nausea Verified 09/19/24 11:38 azithromycin AdvReac Mild Diarrhea Verified 09/19/24 11:38 lactose AdvReac Mild Diarrhea Verified 09/19/24 11:38 nickel AdvReac Mild Rash Verified 09/19/24 11:38 meloxicam AdvReac Intermediate Diarrhea Uncoded 09/19/24 11:38 Medications Home Medications Medication Instructions Recorded Confirmed Last Taken calcium 600 mg (as 1 tab PO BID 03/12/19 09/05/24 12/13/22 carbonate)-vitamin D3 5 mcg (200 unit) tablet melatonin 5 mg capsule 5 mg PO DAILY PRN Sleep 11/23/22 09/05/24 12/12/22 hydrochlorothiazide 25 mg tablet 25 mg PO QAM #90 tabs 02/05/24 09/05/24 Unknown denosumab 60 mg/mL subcutaneous 60 mg subcut ONCE #1 mL 04/11/24 09/05/24 Unknown syringe (Prolia) albuterol sulfate 90 mcg/actuation 2 puff inhalation Q6H PRN 04/20/24 09/05/24 Unknown aerosol inhaler Shortness Of Breath Or Wheezing #18 grams carvedilol 25 mg tablet 25 mg PO BID #180 tabs 04/30/24 09/05/24 Unknown potassium chloride 20 mEq 20 meq PO BID #180 tabs 04/30/24 09/05/24 Unknown tablet,extended release budesonide 3 mg 3 mg PO Q OTHER DAY 09/05/24 09/19/24 Unknown capsule,delayed,extended release olmesartan 40 mg tablet 40 mg PO QAM 09/05/24 09/05/24 Unknown umeclidinium 62.5 mcg-vilanterol 1 inh inhalation QAM 09/05/24 09/05/24 Unknown 25 mcg/actuation powdr for inhalation (Anoro Ellipta) B12 1 tab PO DAILY 09/19/24 09/19/24 Unknown Gas-X 2 tab PO DAILY PRN Pain 09/19/24 09/19/24 Unknown Vitamin D3 1 tab PO DAILY 09/19/24 09/19/24 Unknown Past Medical History Medical History Compression fracture of thoracic spine, non-traumatic Thoracic spine MRI 05/2024: Compression fractures of T6 and T11. These are age indeterminate but likely have a acute or subacute component. COPD with emphysema Eczema Flares during winter GERD (gastroesophageal reflux disease) Hearing loss B/L hearing aids Hiatal hernia History of colon polyps HTN (hypertension) Hyponatremia Chronic, baseline sodium in the low 130s per chart review IBS (irritable bowel syndrome) Osteopenia Osteoporosis Prediabetes Primary lung adenocarcinoma Dx 2020, s/p surgery + chemo Exercise / Class Metabolic Activity III < 4 Walking/Shop/Light housework Past Family History Family History Father , 87yo Type 2 diabetes mellitus Myocardial infarction Mother , 49yo Cerebral aneurysm Sister No problems noted. Son No problems noted. Daughter No problems noted. Other No family history of adverse response to anesthesia Denies family history of Colon cancer Ovarian cancer Prostate cancer Crohn's disease Past Surgical History Surgical History H/O esophagogastroduodenoscopy History of cataract surgery right/left History of colonoscopy History of lung biopsy History of lung surgery Left Robotic Video Assisted Thoracoscopy with Left Upper Wedge Resection and Mediastinal Lymphadenectomy (11/14/19) History of total knee replacement right Past Anesthesia History No Hx of Anesthesia Complications and No Family Hx of Anesthesia Complications History of PONV No Hx of PONV and No Hx of Motion Sickness Social History Smoking Status: Former smoker tobacco type: cigarettes Do You Dip or Chew Tobacco: No Smoking End Date: 2019 Hx Alcohol Use: Yes Alcohol type: beer alcohol intake frequency: a few times a week Hx Substance Use: No substance use type: does not use Review of Systems Patient denies chest pain, shortness of breath, fever, chills, cough, wheezing, palpitations. Physical Exam Vital Signs BP 120/63 P 66 TEMP 97.5 SP02 95%RA RESP 18 Physical Mildly decreased cervical extension range of motion. Full TMJ range of motion. TMD > 3.5 finger breaths Mallampati Score I Dentition: intact, + dental "repairs" to molars Lungs: clear throughout to auscultation Cardiac: regular rate and rhythm, no murmurs noted Spine: normal Carotid arteries: negative bruit Extremities: no LE edema Lab Results Anesthesia Preop Results Results Anesthesia Widget: WBC 4.66 K/ul (4.8-10.8) L 09/19/24 Hgb 14.1 g/dl (12.0-16.0) 09/19/24 Hct 42.0 % (37.0-47.0) 09/19/24 Plt 238 K/uL (130-400) 09/19/24 Na 133 mmol/L (136-145) L 09/19/24 K 3.3 mmol/L (3.5-5.1) L 09/19/24 Cl 97 mmol/L (98-107) L 09/19/24 CO2 31 mmol/L (21-32) 09/19/24 BUN 14 mg/dl (6-23) 09/19/24 Creat 0.73 mg/dl (0.6-1.2) 09/19/24 Glucose Level 143 mg/dl (70-99(Fasting)) H 09/19/24 PT 10.9 Seconds (9.0-12.0) 09/19/24 PTT 27 Seconds (21-31) 09/19/24 INR 1.0 (0.9-1.1) 09/19/24 Blood Type A Positive 09/19/24 Antibody Screen NEGATIVE 09/19/24 Testing Electrocardiogram Date: 09/19/24 SR with first degree AVB at 68bpm. Minimal voltage criteria for LVH, may be normal variant. Echocardiogram Date: 02/07/24 EF > 70%. No regional wall motion abnormality. Mild concentric LVH. Mild LAD. No significant valvular disease. Normal estimated RVSP. Small pericardial effusion without echocardiographic evidence of tamponade physiology. No significant change compared to prior study 10/26/2019 per report. Other Testing Chest CT Date: 04/01/24 IMPRESSION: 1. Cardiomegaly and emphysema with postoperative change from left upper lobe resection. 2. Again seen are numerous irregular groundglass lesions/nodules scattered throughout both lungs. These are similar in size and distribution to 12/20/2023 examination. Low-grade adenomatous lesions are not excluded. No new or enlarging pulmonary lesion is identified. 3. There is no airspace consolidation typical for pneumonia. 4. Trace pleural effusions. 5. There is an acute to subacute superior endplate compression deformity of T11. Correlate clinically.
[2024-10-07] MEDS: GABAPENTIN 300 MG CAP PO SCH (06:35)
[2024-10-07] MEDS: ACETAMINOPHEN 500 MG TAB PO SCH (06:35)
[2024-10-07] MEDS: LR 15ML/HR IV SCH (06:35)
[2024-10-07] MEDS: LR 60ML/HR IV SCH (06:37)
[2024-10-07] MEDS ORDERED: DEXAMETHASONE SOD INJ 4 MG/ML VIAL ONE (07:03)
[2024-10-07] MEDS ORDERED: fentaNYL citrate PF 100 MCG/2 ML VIAL ONE (07:03)
[2024-10-07] MEDS ORDERED: MIDAZOLAM HCL 1 MG/ML 2ML VIAL ONE (07:04)
[2024-10-07] MEDS ORDERED: HYDROmorphone INJ 2 MG/ML SYR/VIAL ONE (07:04)
[2024-10-07] MEDS ORDERED: LIDOCAINE 2% 2 ML VIAL/AMP(20MG/ML) INFIL ONE (07:05)
[2024-10-07] MEDS ORDERED: PROPOFOL IV EMULSION 10 MG/ML 100 ML VIAL IV ONE (07:06)
[2024-10-07] MEDS ORDERED: PROPOFOL IV EMULSION 10 MG/ML 20 ML VIAL IV ONE (07:06)
--- NOTE | 2024-10-07 07:11 | History & Physical Bridge Note ---
Date of Service October 07, 2024 History & Physical Bridge Note I have examined the patient, reviewed the History & Physical and in the interval since the performance of the History & Physical I have noted the following changes of clinical significance: no changes noted
[2024-10-07] MEDS ORDERED: ATROPINE SULFATE 0.1 MG/ML 10ML SYR IV PRN (07:12)
[2024-10-07] MEDS ORDERED: ePHEDrine sulfate 50 MG/ML AMP IV PRN (07:12)
[2024-10-07] MEDS ORDERED: ONDANSETRON INJ 2 MG/ML 2 ML VIAL IV PRN (07:12)
[2024-10-07] MEDS ORDERED: HYDROmorphone INJ 1 MG/ML SYRINGE IV PRN (07:12)
[2024-10-07] MEDS ORDERED: ROCURONIUM BROMIDE 10 MG/ML 5 ML VIAL IV ONE ×2 (07:13→10:02)
[2024-10-07] MEDS ORDERED: SUCCINYLCHOLINE CHLORIDE 20 MG/ML 10 ML VIAL IV ONE (07:13)
[2024-10-07] MEDS ORDERED: GLYCOPYRROLATE 0.2 MG/ML VIAL ONE (07:53)
[2024-10-07] MEDS ORDERED: ePHEDrine sulfate 50 MG/5 ML SYR ONE (07:53)
[2024-10-07] MEDS: ceFAZolin 2000MG 2,000 MG/15 ML SYR IV SCH (08:30)
[2024-10-07] MEDS ORDERED: ePHEDrine sulfate 50 MG/ML AMP ONE (11:41)
[2024-10-07] MEDS: ceFAZolin 1000MG 1,000 MG/7.5 ML SYR IV ONE (12:30)
[2024-10-07] MEDS ORDERED: SUGAMMADEX SODIUM 200 MG/2 ML VIAL IV ONE (12:33)
[2024-10-07] MEDS: GELATIN SPONGE 12-7MM ONE (12:34)
[2024-10-07] MEDS: THROMBIN 5000 UNITS KIT ONE (12:34)
[2024-10-07] MEDS: VANCOMYCIN HCL 1000MG/20ML VIAL ONE (12:35)
[2024-10-07] MEDS: BUPIVACAINE/EPINEPHRINE 0.5% MPF 1:200,000 30 ML VIAL ONE (12:35)
[2024-10-07] MEDS ORDERED: ceFAZolin 330 MG/ML 1 GM VIAL ONE (12:45)
[2024-10-07] MEDS: FLOSEAL HEMOSTATIC MATRIX 10ML TOP ONE (12:56)
--- NOTE | 2024-10-07 13:12 | Post Operative Brief Note ---
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
[2024-10-07] MEDS ORDERED: FAMOTIDINE 20 MG TAB PO PRN (13:15)
[2024-10-07] MEDS ORDERED: ONDANSETRON 4 MG OD TAB PO PRN (13:15)
[2024-10-07] MEDS ORDERED: NALOXONE HCL 0.4 MG/1 ML VIAL/CARP IV PRN (13:15)
[2024-10-07] MEDS ORDERED: oxyCODONE/ACETAMINOPHEN 5mg/325mg TAB PO PRN (13:15)
[2024-10-07] MEDS ORDERED: bisacodyL 10 MG SUPP PR PRN (13:15)
[2024-10-07] MEDS ORDERED: MAGNESIUM HYDROXIDE SUSP 30 ML UDC PO PRN (13:15)
[2024-10-07] MEDS ORDERED: diphenhydrAMINE Capsule 25 MG CAP PO PRN (13:15)
[2024-10-07] MEDS ORDERED: METOCLOPRAMIDE HCL INJ 5 MG/ML 2 ML VIAL IV PRN (13:15)
[2024-10-07] MEDS ORDERED: LORazepam 0.5 MG TAB PO PRN (13:15)
[2024-10-07] MEDS ORDERED: DO NOT ADMINISTER FLU VACCINE PRN (13:15)
[2024-10-07] MEDS ORDERED: SOD PHOSPHATE/SOD BIPHOSPHATE ENEMA 132 ML BTL PR PRN (13:15)
[2024-10-07] MEDS ORDERED: hydrOXYzine HCl 25 MG TAB PO PRN (13:15)
[2024-10-07] MEDS ORDERED: LORazepam 2 MG/1 ML VIAL IV PRN (13:15)
[2024-10-07] MEDS ORDERED: ALUMINUM/MAGNESIUM SUSP 30 ML UDC PO PRN (13:15)
[2024-10-07] MEDS ORDERED: DO NOT ADMINISTER PNEUMOCOCCAL VACCINE PRN (13:15)
--- NOTE | 2024-10-07 13:20 | Fluoroscopy Report ---
FL lumbar spine 2-3V CLINICAL HISTORY: L3-5 LAMI L4-L5 LATERAL LUMBAR INTERBODY FUSION COMPARISON STUDY: None FLUOROSCOPY TIME: 47 seconds FLUOROSCOPY IMAGES: 6 EXPOSURE DOSE: 16.5 mGy FINDINGS: Fluoroscopy was provided for lower lumbar laminectomy and fusion. IMPRESSION: Intraoperative fluoroscopy. ACT 112: Negative or not required by law. Electronically signed by: Camron Diallo M.D. 10/07/2024 1:19 PM
--- NOTE | 2024-10-07 13:24 | CT Scan Report ---
CT lumbar spine wo con CLINICAL HISTORY: OARM CASE PLEASE DON'T CANCEL ORDER COMPARISON STUDY: None Radiation dose: DLP was 1318 mGycm. FINDINGS: CT guidance was provided for lower lumbar laminectomy and fusion. IMPRESSION: CT guidance for lumbar surgery. ACT 112: Negative or not required by law. Electronically signed by: Camron Diallo M.D. 10/07/2024 1:22 PM
[2024-10-07] MEDS: fentaNYL citrate PF 100 MCG/2 ML VIAL IV PRN (13:25)
[2024-10-07] MEDS: ACETAMINOPHEN 1,000 MG/100 ML VIAL IV PRN (13:37)
--- NOTE | 2024-10-07 14:18 | Anesthesiology Progress Note ---
Date of Service October 07, 2024 Anesthesia Post Procedure Vital Signs Vital Signs: Temp Pulse Pulse Resp BP BP Pulse Ox 10/07/24 14:10 52 L 14 144/63 H 97 10/07/24 14:00 50 L 16 165/70 H 95 10/07/24 13:50 46 L 14 133/56 L 96 10/07/24 13:40 45 L 12 153/64 H 94 10/07/24 13:30 49 L 12 155/68 H 95 10/07/24 13:20 53 L 18 157/67 H 97 10/07/24 13:14 36 C L 53 L 16 135/68 95 10/07/24 06:39 60 18 202/78 H 96 O2 Del Method O2 Flow Rate 10/07/24 14:10 Nasal Cannula 2 10/07/24 14:00 Nasal Cannula 2 10/07/24 13:50 Nasal Cannula 2 10/07/24 13:40 Oxymask 3 10/07/24 13:30 Oxymask 4 10/07/24 13:20 Oxymask 6 10/07/24 13:14 Oxymask 6 10/07/24 06:39 Room Air Pain Intensity Lower Back: Pain Intensity: 3 Transfer of Care Handoff Completed per policy Notes Mental Status: alert / awake / arousable Patient Amnestic to Procedure: Yes Nausea / Vomiting: adequately controlled Pain: adequately controlled Airway Patency, RR, SpO2: stable & adequate BP & HR: stable & adequate Hydration State: stable & adequate Anesthetic Complications: no major complications apparent and Pt Satisfied with anesthetic care
--- NOTE | 2024-10-07 15:09 | Operative Report ---
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 L4-5 posterolateral arthrodesis. (66890) 2. L4-5 posterior nonsegmental instrumentation, Medtronic modular X. (13345) 3. L3-4 posterior laminectomy/decompression. (67240) 4. L4-5 posterior laminectomy/decompression. (77935) 5. Utilization of products of decompression for fusion purposes. (27841) 6. Stereotactic CT-guided navigation for instrumentation. (20538) Patient was taken operating room placed on the OR table, and after adequate anesthesia, I brought in fluoroscopy to evaluate for potential lateral approach to the L4-5 level, and after reviewing this with the ability now to visualize the endplates relative to the iliac crest, I decided that the angle of approach for the L4-5 level would be higher than anticipated for lateral cage placement, it is to note that the patient has a transitional segment at S1. The patient was then repositioned prone on the OSI Elia frame to have the posterior portion of the procedure performed. A preprepped was performed, I brought in fluoroscopy and then marked for the area of incision for the L3-4 and L4-5 levels. Prep and drape was performed, began the procedure with midline incision carried down through the subcutaneous tissues where I then located the spinous processes and advanced down to the interspinous region for L3-4 and L4-5. The position was confirmed with fluoroscopy, and I moved ahead with then exposing the appropriate fusion surfaces for the L4-5 fusion, the transverse processes of L4 and L5. Once the exposure was completed, the O-arm was brought in after inserting a post into the right iliac crest, and imaging was performed. Upon completion, I then utilized the navigation instrumentation to place the pedicle screws for both L4 and L5. This was performed using a high-speed bur for the start point, gearshift probe, tap with utilization of monitoring at all times old readings were greater than 20 for all 4 screws. 6.5 millimeter screws from the Medtronic set were inserted 45 mm in length. Upon completion of insertion of the hardware, an additional spin using the O-arm was completed showing the hardware to be in proper position. Decompression was then performed with removal of the spinous process of L4 and the inner laminar region of L4-5 and L3-4 were exposed. The spinous process material was morselized, and then I used a bone collection device from [employer] to collect the bone dust from the laminectomies at L4-5 and L3-4. This bone dust along with DBM was later utilized for the fusion posterolaterally for the L4-5 level. The microscope was brought in, and then for starting at L3-4 I performed a decompression with using high-speed bur to remove the inferior laminar edge of L3 superior lamina edge of L4, partial medial facetectomies bilaterally, the ligamentum flavum was then thinned and then eventually removed using combination of curettes and Kerrison punches completing a decompression at the segment. I then moved to the L4-5 level where a similar procedure was performed, once again performing bilateral partial medial facetectomies, laminectomies, and decompression of the exiting nerve roots bilaterally with thinning and removing the thickened ligamentum flavum. Upon completion both levels were completely decompressed, no issues were noted. Upon completion the fusion materials were placed as previously stated, I then applied the instrumentation to the pedicle screws that had been placed, slight distraction was performed on the left at L4-5 to improve the scoliosis and indirectly decompress the foramen on that side, all setscrews were torqued down properly. Vancomycin powder was placed, I then closed the operative incision using interrupted 0 Vicryl sutures to the supraspinous ligament followed by an additional layer of 2-0 Vicryl sutures and nell for the skin. The post insertion site was closed with a single 2-0 Vicryl suture and nell for the skin. Sterile dressings were applied, the patient was tolerated procedure well was taken recovery room in satisfactory condition. I attest to the content of the Intraoperative Record and any orders documented therein. Any exceptions are noted below.
[2024-10-07] MEDS ORDERED: ALBUTEROL HFA 8 GM INHALER INH PRN (15:47)
[2024-10-07] MEDS ORDERED: MELATONIN 3 MG TAB PO PRN (15:56)
[2024-10-07] MEDS: HYDROmorphone INJ 0.5 MG/0.5 ML SYR IV PRN (16:16)
[2024-10-07] MEDS: ONDANSETRON INJ 2 MG/ML 2 ML VIAL IV PRN (16:45)
--- NOTE | 2024-10-07 16:51 | Hospitalist Consultation ---
Date of Consultation October 07, 2024 Assessment & Plan (1) Degenerative spondylolisthesis: (2) Hypertension: (3) Prediabetes: (4) COPD with emphysema: (5) Primary lung adenocarcinoma: Plan This is a 79 year old female with past medical history of hyperlipidemia, prediabetes, COPD, lung cancer, lymphocytic colitis, glaucoma who presented to the hospital for spinal surgery with Dr. Canales on 10/07/2024. #degenerative spondylolisthesis s/p L3-L4, L4-L5 laminectomy, L4-L5 interbody fusion 10/07/ w/ Dr. Canales Pain medications per primary team. Bowel regimen, diet, DVT prophylaxis per primary team antiemetics prn PT/OT consulted, appreciate recommendations. #COPD/Lung cancer s/p left upper lobe resection [address] 10/04/24 - stable pulmonary nodules. continue anoro daily. wean oxygen as able back to room air #HTN Continue Carvedilol and ARB Hold HCTZ BP stable #prediabetes Last A1c 04/2023 5.8% not on any outpatient regimen Update A1c in AM DVT prophylaxis: per primary team, SCD's Code: full Thank you for this consult, we will continue to follow along. Case was discussed w/ Dr. Canela at time of consultation. History of Present Illness Attending Physician: Mario Alberto Canales MD History of Present Illness This is a 79 year old female with past medical history of hyperlipidemia, prediabetes, COPD, lung cancer, lymphocytic colitis, glaucoma who presented to the hospital for spinal surgery with Dr. Canales on 10/07/2024. The patient was seen and examined following her operation today. Patient reports that she was in some pain following surgery and had a dose of IV pain medication. She was nauseous at time of encounter. She has not ate, urinated, or passed gas since her operation. She was on 2L of oxygen at time of encounter but reports she does not use oxygen at home. She did report that the pain medication did help with her pain. She lives at home with her and her plan is to return home with him at discharge. For her chronic conditions, she currently follows with heme/onc for lung cancer that was diagnosed in 2019. She has a history of a left upper lobe resection. She reports everything is stable and treatment is on hold. She has been getting imaging every 6 months. She takes a daily inhaler, Anoro for her COPD. She is compliant with all her PO medications. Allergies Allergy/AdvReac Type Severity Reaction Status Date / Time codeine AdvReac Intermediate Nausea Verified 10/07/24 06:26 azithromycin AdvReac Mild Diarrhea Verified 10/07/24 06:26 lactose AdvReac Mild Diarrhea Verified 10/07/24 06:26 nickel AdvReac Mild Rash Verified 10/07/24 06:26 meloxicam AdvReac Intermediate Diarrhea Uncoded 10/07/24 06:26 Home Medications Medication Instructions Recorded Confirmed Type calcium 600 mg (as 1 tab PO BID 03/12/19 10/07/24 History carbonate)-vitamin D3 5 mcg (200 unit) tablet melatonin 5 mg capsule 5 mg PO DAILY PRN Sleep 11/23/22 10/07/24 History hydrochlorothiazide 25 mg tablet 25 mg PO QAM #90 tabs 02/05/24 10/07/24 Rx denosumab 60 mg/mL subcutaneous 60 mg subcut ONCE #1 mL 04/11/24 09/27/24 Rx syringe (Prolia) albuterol sulfate 90 mcg/actuation 2 puff inhalation Q6H PRN 04/20/24 10/07/24 Rx aerosol inhaler Shortness Of Breath Or Wheezing #18 grams carvedilol 25 mg tablet 25 mg PO BID #180 tabs 04/30/24 10/07/24 Rx potassium chloride 20 mEq 20 meq PO BID #180 tabs 04/30/24 10/07/24 Rx tablet,extended release budesonide 3 mg 3 mg PO Q OTHER DAY 09/05/24 10/07/24 History capsule,delayed,extended release olmesartan 40 mg tablet 40 mg PO QAM 09/05/24 10/07/24 History umeclidinium 62.5 mcg-vilanterol 1 inh inhalation QAM 09/05/24 10/07/24 History 25 mcg/actuation powdr for inhalation (Anoro Ellipta) cholecalciferol (vitamin D3) PO 09/27/24 09/27/24 History mecobalamin (vitamin B12) PO 09/27/24 09/27/24 History simethicone 125 mg capsule 125 mg PO DAILY 09/27/24 10/07/24 History Patient History Medical History Compression fracture of thoracic spine, non-traumatic Thoracic spine MRI 05/2024: Compression fractures of T6 and T11. These are age indeterminate but likely have a acute or subacute component. COPD with emphysema Eczema Flares during winter GERD (gastroesophageal reflux disease) Hearing loss B/L hearing aids Hiatal hernia History of colon polyps HTN (hypertension) Hyponatremia Chronic, baseline sodium in the low 130s per chart review IBS (irritable bowel syndrome) Osteopenia Osteoporosis Prediabetes Primary lung adenocarcinoma Dx 2020, s/p surgery + chemo Surgical History H/O esophagogastroduodenoscopy History of cataract surgery right/left History of colonoscopy History of lung biopsy History of lung surgery Left Robotic Video Assisted Thoracoscopy with Left Upper Wedge Resection and Mediastinal Lymphadenectomy (11/14/19) History of total knee replacement right Family History Father , 87yo Type 2 diabetes mellitus Myocardial infarction Mother , 49yo Cerebral aneurysm Sister No problems noted. Son No problems noted. Daughter No problems noted. Other No family history of adverse response to anesthesia Denies family history of Colon cancer Ovarian cancer Prostate cancer Crohn's disease Social History Smoking Status: Former smoker Tobacco Type: Cigarettes Age Started Using Tobacco: 20; Age Quit Using Tobacco: 73; packs per day: 1; Smoking End Date: Quit 2019; Second Hand Exposure: Yes (IN THE PAST); Do You Dip or Chew Tobacco: No; Hx Alcohol Use: Yes (1-2 beers daily ) Alcohol type: beer Alcohol Intake Frequency: 4 or More x per/Week Hx Substance Use: No Preferred Language: Azeri Communication Ability: Effective Visual Impairment: No Limitations Hearing Ability: Use of Hearing Aid System Dispatcher Required: No Beliefs That Will Affect Care: None marital status: Current Living Situation: Spouse current occupational status: retired current occupation: Worked in a [employer] Feels Safe at Home: Yes Safety Concerns: Feels Safe At This Time Childhood Exposure to Second-Hand Smoke: Yes Diet: low salt Diet Comment: fresh fruits and vegetables caffeine: Yes (1 cup day. ) during the past year weight has: remained stable Dental Care, Regularly: Yes Physical Activity Frequency: 3-4 Times per Week Seatbelt Use: always Sunscreen Use: Yes Assistive Devices: Glasses and Hearing Aid - Bilateral Physical Exam Constitutional: WD/WN, vitals as above Eyes: PERRL, conjunctivae normal, anicteric sclerae Respiratory: diminished but clear Cardiovascular: RRR, no murmur, no edema Musculoskeletal: moves all extremities Psychiatric: A+Ox3, euthymic affect Results & Data Results & Data Vital Signs (Past 12 Hours) Vital Signs Temp Pulse Pulse Pulse Resp BP BP 10/07/24 16:12 36.3 C L 57 L 16 154/69 H 10/07/24 15:40 37.1 C 54 L 16 143/76 H 10/07/24 15:30 36.3 C L 52 L 16 149/70 H 10/07/24 15:10 50 L 16 153/70 H 10/07/24 15:00 55 L 14 148/64 H 10/07/24 14:50 57 L 16 146/66 H 10/07/24 14:40 50 L 14 135/63 10/07/24 14:30 50 L 16 144/64 H 10/07/24 14:20 49 L 12 141/67 H 10/07/24 14:10 52 L 14 144/63 H 10/07/24 14:00 50 L 16 165/70 H 10/07/24 13:50 46 L 14 133/56 L 10/07/24 13:40 45 L 12 153/64 H 10/07/24 13:30 49 L 12 155/68 H 10/07/24 13:20 53 L 18 157/67 H 10/07/24 13:14 36 C L 53 L 16 135/68 10/07/24 06:39 60 18 202/78 H Pulse Ox O2 Del Method O2 Flow Rate 10/07/24 16:12 96 Nasal Cannula 2 10/07/24 15:40 94 Nasal Cannula 2 10/07/24 15:30 93 Nasal Cannula 2 10/07/24 15:10 93 Nasal Cannula 2 10/07/24 15:00 95 Nasal Cannula 2 10/07/24 14:50 95 Nasal Cannula 2 10/07/24 14:40 95 Nasal Cannula 2 10/07/24 14:30 96 Nasal Cannula 2 10/07/24 14:20 96 Nasal Cannula 2 10/07/24 14:10 97 Nasal Cannula 2 10/07/24 14:00 95 Nasal Cannula 2 10/07/24 13:50 96 Nasal Cannula 2 10/07/24 13:40 94 Oxymask 3 10/07/24 13:30 95 Oxymask 4 10/07/24 13:20 97 Oxymask 6 10/07/24 13:14 95 Oxymask 6 10/07/24 06:39 96 Room Air PG Care Time/CCT Total # of Minutes Spent Total Time Spent with Patient: Total time spent is greater than 50% in coordination of care (as documented) at patient's floor/unit and/or counseling patient: Coding Level of Care Code 80263 IN/OBS CONSULT LVL 3,45M Diagnoses Degenerative spondylolisthesis M43.10 Primary hypertension I10 Hypertension type: primary hypertension Prediabetes R73.03 COPD with emphysema J43.9 Primary adenocarcinoma of left lung C34.92 Laterality: left (2) Hypertension Hypertension type: primary hypertension Qualified Code(s): I10 - Essential (primary) hypertension (5) Primary lung adenocarcinoma Laterality: left Qualified Code(s): C34.92 - Malignant neoplasm of unspecified part of left bronchus or lung
[2024-10-07] MEDS: PROMETHAZINE 12.5 MG/50.5 ML BAG IV PRN (18:22)
[2024-10-07] MEDS: ceFAZolin 1000MG 1,000 MG/7.5 ML SYR IV SCH (19:21)
[2024-10-07] MEDS: POTASSIUM CHLORIDE CRTAB 20 MEQ TABCR PO SCH (20:15)
[2024-10-07] MEDS: DOCUSATE SODIUM/SENNA 50/8.6MG TAB PO SCH (20:15)
[2024-10-07] MEDS: carvediloL 25 MG TAB PO SCH (20:15)
[2024-10-08] MEDS: LACTATED RINGER'S 1,000 ML IV SCH (01:25)
[2024-10-08] MEDS: POLYETHYLENE (MIRALAX) 17 GM PACK PO SCH (05:27)
[2024-10-08 06:27] LABS: Hematocrit (blood only) 31.8 % (37.0-47.0); Hemoglobin 10.7 g/dl (12.0-16.0); Mean Corpuscular Hemoglobin 31.1 pg (25.0-34.0); Mean Corpuscular Hgb Conc 33.6 g/dL (32.0-36.0); Mean Corpuscular Volume 92.4 fL (80.0-100.0); Mean Platelet Volume 9.7 fL (9.4-12.4); Platelet Count 196 K/uL (130-400); RDW Coefficient of Variation 13.4 % (11.5-14.5); RDW Standard Deviation 45.1 fL (36.4-46.3); Red Blood Count 3.44 M/uL (4.20-5.40); White Blood Count 6.27 K/ul (4.8-10.8)
[2024-10-08 06:36] LABS: BUN Creatinine Ratio 20.3 (10-20); Creatinine Clr Calc Pharmacy 71.9 ml/min; Potassium 4.1 mmol/L (3.5-5.1)
[2024-10-08] MEDS: ACETAMINOPHEN 500 MG TAB PO PRN (08:02)
[2024-10-08] MEDS: SIMETHICONE 80 MG CHEW PO SCH (08:03)
[2024-10-08] MEDS: LOSARTAN POTASSIUM 50 MG TAB PO SCH (08:03)
[2024-10-08] MEDS: UMECLIDINIUM/VILANTEROL 62.5/25MCG 7 PUFFS/INHALER INH SCH (08:03)
[2024-10-08 08:39] LABS: Estimated Average Glucose 123 mg/dl; Hemoglobin A1C 5.9 % (4.5-5.6)
[2024-10-08] MEDS ORDERED: hydroCHLOROthiazide 25 MG TAB PO SCH (09:00)
--- NOTE | 2024-10-08 14:54 | Orthopedic Progress Note ---
Date of Service October 08, 2024 Assessment & Plan (1) S/P lumbar spinal fusion: (2) Status post lumbar spine surgery for decompression of spinal cord: Plan 79-year-old woman POD#1 s/p L3-L4, L4-L5 Laminectomy, L4-L5 Lumbar Interbody Fusion with CT navigation, doing well overall. Pain is controlled. Medically stable. She is neurologically intact to bilateral lower extremities. Plan: 1. DVT prophylaxis w/ regular ambulation/mobilization, SCDs. 2. Continue PT/OT. WBAT and AAT. 3. Dressing changes per Dr. Canales' instructions , or as needed. 4. Ordered tramadol for pain relief purposes, as oxycodone has made patient sick in the past. If she does well with this, likely will send with a prescription of this tomorrow. 5. Disposition - Return home, likely tomorrow, Monday10/09/2024. 6. F/u as scheduled on 10/24/24 @ 11:00 w/ Dr. Canales for first post-op visit. Subjective Patient is POD# 1 s/p L3-L4 , L4-L5 Laminectomy, L4-L5 Lumbar Interbody Fusion, Spinal Cord Monitoring by Dr. Canales on 10/07/2024. Patient says her pain is relatively well-controlled; she no longer has any of the radicular component symptoms that she was experiencing preoperatively, but she does admit to some operative site pain. Denies CP, SOB, N/V, new L or R LE paresthesia. She is requesting something additional for pain, but she has had too much Tylenol recently, and does not wish to take the oxycodone since she has become sick on it before. Review of Systems All systems reviewed & are unremarkable except as noted in HPI & below. Physical Exam . GENERAL: Speech and cognition is intact. Mood and affect is appropriate. Does not appear in acute distress. Lying in bed and appears comfortable. HEAD: Normocephalic; atraumatic. CHEST: Regular chest respiration and excursion. NEURO: Awake, alert, and oriented x 3. BACK: Dressing intact to lumbar spine with overlying Medipore tape and no evidence of saturation. No evidence of erythema, drainage, or abnormal warmth. LOWER EXTREMITIES: Sensation intact to light touch of the bilateral L2-S1 dermatomes. Plantar/dorsiflexion intact bilaterally. NVI distally. R Hip flexion 5/5; knee extension 5/5; knee flexion 5/5; ankle dorsiflexion 5/5; ankle plantar flexion 5/5; EHL 5/5 L Hip flexion 5/5; knee extension 5/5; knee flexion 5/5; ankle dorsiflexion 5/5; ankle plantar flexion 5/5; EHL 5/5 Results & Data Results & Data Laboratory Results . Laboratory Results - last 24 hr 10/08/24 05:58 WBC 6.27 RBC 3.44 L Hgb 10.7 L Hct 31.8 L MCV 92.4 MCH 31.1 MCHC 33.6 RDW Std Deviation 45.1 RDW Coeff of Jung 13.4 Plt Count 196 MPV 9.7 Sodium 129 L Potassium 4.1 Chloride 96 L Carbon Dioxide 28 Anion Gap 5 BUN 12 Creatinine 0.59 L Est Cr Clr Drug Dosing 71.9 eGFR 92.76 BUN/Creatinine Ratio 20.3 H Glucose 119 H Estimat Average Glucose 123 Hemoglobin A1c 5.9 H Calcium 8.0 L Diagnostic Findings . Lumbar Spine CT 10/07/24 00:00 CT lumbar spine wo con CLINICAL HISTORY: OARM CASE PLEASE DON'T CANCEL ORDER COMPARISON STUDY: None Radiation dose: DLP was 1318 mGycm. FINDINGS: CT guidance was provided for lower lumbar laminectomy and fusion. IMPRESSION: CT guidance for lumbar surgery. ACT 112: Negative or not required by law. Electronically signed by: Camron Diallo M.D. 10/07/2024 1:22 PM Lumbar Spine X-Ray 10/07/24 07:30 FL lumbar spine 2-3V CLINICAL HISTORY: L3-5 LAMI L4-L5 LATERAL LUMBAR INTERBODY FUSION COMPARISON STUDY: None FLUOROSCOPY TIME: 47 seconds FLUOROSCOPY IMAGES: 6 EXPOSURE DOSE: 16.5 mGy FINDINGS: Fluoroscopy was provided for lower lumbar laminectomy and fusion. IMPRESSION: Intraoperative fluoroscopy. ACT 112: Negative or not required by law. Electronically signed by: Camron Diallo M.D. 10/07/2024 1:19 PM PG Care Time/CCT Total # of Minutes Spent Total Time Spent with Patient: Total time spent is greater than 50% in coordination of care (as documented) at patient's floor/unit and/or counseling patient: Coding [place] [address] SUB INP/OBS CARE 25MIN Patient Type Established Medical Decision Making Low Complexity Diagnoses S/P lumbar spinal fusion Z98.1 Status post lumbar spine surgery for decompression of spinal cord Z98.890
[2024-10-08] MEDS: traMADol HCL 50 MG TABLET PO PRN (15:19)
--- NOTE | 2024-10-08 16:19 | Hospitalist Progress Note ---
Date of Service October 08, 2024 Assessment & Plan (1) Degenerative spondylolisthesis: (2) Hypertension: (3) Prediabetes: (4) COPD with emphysema: (5) Primary lung adenocarcinoma: (6) Hyponatremia: Plan This is a 79 year old female with past medical history of hyperlipidemia, predia betes, COPD, lung cancer, lymphocytic colitis, glaucoma who presented to the hospital for spinal surgery with Dr. Canales on 10/07/2024. #degenerative spondylolisthesis s/p L3-L4, L4-L5 laminectomy, L4-L5 interbody fusion 10/07/ w/ Dr. Canales Pain medications per primary team. Bowel regimen, diet, DVT prophylaxis per primary team antiemetics prn PT/OT consulted - patient to return home w/ her . #Hyponatremia BMP w/ Na of 129, baseline appears 131-134. CBC stable w/o leukocytosis. Repeat BMP in AM #COPD/Lung cancer s/p left upper lobe resection [address] 10/04/24 - stable pulmonary nodules. continue anoro daily. wean oxygen as able back to room air #HTN Continue Carvedilol and ARB BP stable #prediabetes A1c 10/08: 5.9% not on any outpatient regimen DVT prophylaxis: per primary team, SCD's Code: full Admission and Anticipated Discharge Date Admission Date: October 07, 2024 Subjective Patient seen and examined this morning. Patient did have to be straight cathed overnight but reports she is able to urinate on her own today. She reports back pain and is hesitant to use a narcotic because it upset her stomach yesterday. She denies any additional complaints. Physical Exam Constitutional: WD/WN, vitals as above Eyes: PERRL, conjunctivae normal, anicteric sclerae Respiratory: breathing unlabored Cardiovascular: well perfused Musculoskeletal: moves all extremities Psychiatric: A+Ox3, euthymic affect Results & Data Results & Data Vital Signs (Past 12 Hours) Vital Signs Temp Pulse Resp BP Pulse Ox O2 Del Method 10/08/24 15:44 36.8 C 59 L 14 167/71 H 96 Room Air 10/08/24 08:08 37.1 C 71 16 161/69 H 95 Room Air 10/08/24 04:42 36.7 C 67 16 152/69 H 93 Room Air PG Care Time/CCT Total # of Minutes Spent Total Time Spent with Patient: Total time spent is greater than 50% in coordination of care (as documented) at patient's floor/unit and/or counseling patient: Coding Level of Care Code 92801 SUB INP/OBS CARE MIN Diagnoses Degenerative spondylolisthesis M43.10 Primary hypertension I10 Hypertension type: primary hypertension Prediabetes R73.03 COPD with emphysema J43.9 Primary adenocarcinoma of left lung C34.92 Laterality: left Hyponatremia E87.1 (2) Hypertension Hypertension type: primary hypertension Qualified Code(s): I10 - Essential (primary) hypertension (5) Primary lung adenocarcinoma Laterality: left Qualified Code(s): C34.92 - Malignant neoplasm of unspecified part of left bronchus or lung
[2024-10-09 06:30] LABS: Hematocrit (blood only) 27.8 % (37.0-47.0); Hemoglobin 9.5 g/dl (12.0-16.0); Mean Corpuscular Hemoglobin 31.9 pg (25.0-34.0); Mean Corpuscular Hgb Conc 34.2 g/dL (32.0-36.0); Mean Corpuscular Volume 93.3 fL (80.0-100.0); Mean Platelet Volume 9.7 fL (9.4-12.4); Platelet Count 180 K/uL (130-400); RDW Coefficient of Variation 13.5 % (11.5-14.5); RDW Standard Deviation 46.1 fL (36.4-46.3); Red Blood Count 2.98 M/uL (4.20-5.40); White Blood Count 5.27 K/ul (4.8-10.8)
[2024-10-09 06:56] LABS: BUN Creatinine Ratio 23.7 (10-20); Calcium 7.7 mg/dl (8.6-10.3); Creatinine Clr Calc Pharmacy 71.9 ml/min; Potassium 4.4 mmol/L (3.5-5.1)
--- NOTE | 2024-10-09 08:27 | Orthopedic Progress Note ---
Date of Service October 09, 2024 Subjective Patient seen and examined, she notes definite improvement in her lower extremities versus preoperative symptomatology. Limited achiness in the lumbar spine and improving. Patient indicates she would like to discharge to home today. Motor intact in the lower extremities, incision with limited serosanguineous drainage. Impression/plan: Postoperative day 2 from fusion decompression lumbar spine L3-4 L4-5 with improvement of preoperative symptoms. Will discharge home today with tramadol for pain and follow-up in 2 weeks. Review of Systems All systems reviewed & are unremarkable except as noted in HPI & below. Physical Exam . Results & Data Results & Data Laboratory Results . Diagnostic Findings . PG Care Time/CCT Total # of Minutes Spent Total Time Spent with Patient: Total time spent is greater than 50% in coordination of care (as documented) at patient's floor/unit and/or counseling patient: Coding Level of Care Code 85333 Post Operative Follow-Up
--- NOTE | 2024-10-09 10:12 | Hospitalist Progress Note ---
Date of Service October 09, 2024 Assessment & Plan (1) Degenerative spondylolisthesis: (2) Hypertension: (3) Prediabetes: (4) COPD with emphysema: (5) Primary lung adenocarcinoma: (6) Hyponatremia: Plan This is a 79 year old female with past medical history of hyperlipidemia, predia betes, COPD, lung cancer, lymphocytic colitis, glaucoma who presented to the hospital for spinal surgery with Dr. Canales on 10/07/2024. #degenerative spondylolisthesis s/p L3-L4, L4-L5 laminectomy, L4-L5 interbody fusion 10/07/ w/ Dr. Canales Pain medications per primary team. Bowel regimen, diet, DVT prophylaxis per primary team antiemetics prn PT/OT consulted - patient to return home w/ her . #Hyponatremia BMP w/ Na of 132, baseline appears 131-134. CBC stable w/o leukocytosis. #COPD/Lung cancer s/p left upper lobe resection [address] 10/04/24 - stable pulmonary nodules. continue anoro daily. wean oxygen as able back to room air #HTN Continue Carvedilol Patient w/ episodes of hypotension upon standing. Reduced Olmesartan to 20mg PO daily outpatient. - recommend close monitoring and follow up with PCP outpatient for further recommendations. #prediabetes A1c 10/08: 5.9% not on any outpatient regimen Patient stable from a medical standpoint for discharge. Our service will sign off. Please call back with questions or concerns. Admission and Anticipated Discharge Date Admission Date: October 07, 2024 Subjective Patient seen and examined this morning. Patient reports to be doing okay today. She reports she is able to tolerate the tramadol without GI upset. Denies any additional complaints. Reports she is to go home today. Physical Exam Constitutional: WD/WN, vitals as above Eyes: PERRL, conjunctivae normal, anicteric sclerae Cardiovascular: RRR, no murmur, no edema Psychiatric: A+Ox3, euthymic affect Results & Data Results & Data Vital Signs (Past 12 Hours) Vital Signs Temp Pulse Pulse Resp BP Pulse Ox O2 Del Method 10/09/24 09:47 71 117/54 L 10/09/24 08:00 37.1 C 65 14 102/54 L 94 Room Air PG Care Time/CCT Total # of Minutes Spent Total Time Spent with Patient: Total time spent is greater than 50% in coordination of care (as documented) at patient's floor/unit and/or counseling patient: Coding Level of Care Code 29776 SUB INP/OBS CARE Diagnoses Degenerative spondylolisthesis M43.10 Primary hypertension I10 Hypertension type: primary hypertension Prediabetes R73.03 COPD with emphysema J43.9 Primary adenocarcinoma of left lung C34.92 Laterality: left Hyponatremia E87.1 (2) Hypertension Hypertension type: primary hypertension Qualified Code(s): I10 - Essential (primary) hypertension (5) Primary lung adenocarcinoma Laterality: left Qualified Code(s): C34.92 - Malignant neoplasm of unspecified part of left bronchus or lung
[2024-10-09 12:59] VITALS: BP 110/48; PULSE 65; RESP 15; TEMP 97.9; O2SAT 95
--- NOTE | 2024-10-09 14:19 | Discharge Summary ---
Date of Service October 09, 2024 Admission HPI (Per Admitting) 06/13/24 OV: Patient returns with her , she has complaints of low back pain and primarily left leg radicular symptoms, she is status post a lumbar MRI and February 25 but also a thoracic MRI due to thoracic pain recently and what may have been some stenosis seen on the lumbar MRI. She reports no new significant changes though she does report that the thoracic pain is improved. No changes in examination, she has no focal weakness to left lower extremity but a positive straight leg raise. Review of thoracic MRI from May 30, 2024, is my separate interpretation, this reveals reviewed the sagittal T2 and also the STIR reveals evidence of co mbination of acute but subacute findings involving T6 and T11 in terms of compression fracture. The notable area of stenosis is at T10-11, no signal in the cord is noted but there is combination tightness from limited disc bulging at this level but also facet arthropathy. There is a lesser degree of stenosis developing at T11-12. Review of MRI images of the lumbar spine from February 26, 2024 was performed, this includes lumbar spine and up to T10 partially, this is my separate interpretation, this reveals the patient to have multilevel degenerative changes throughout the lower thoracic and lumbar spine, there is evidence of some subacute to acute compression fractures involving at least a portion of T10 and also the superior plate of T11. There is multilevel stenosis but the most significant is at L3-4 and L4-5 with evidence of degenerative spondylolisthesis at L4-5 with notable left-sided foraminal stenosis at that level, the other levels have more moderate or lower grade stenosis. 2 views of the thoracolumbar junction 8 for 04/25 office reveal the superior endplate compression fracture of T11, T10 appears to be relatively unremarkable, the area of the metallic marker did not reveal any obvious fracture in that immediate region but this set of radiographs did not extend all the way to the superior aspect of the thoracic spine. Impression: Combination of left-sided lumbosacral pain which developed in December 2023 but also some slow development of generalized limited weakness in the lower extremities, but also what appears to be a more recent compression fracture at T11, and then also the recent onset of pain from yesterday in the mid upper thoracic spine, stenosis noted significantly at L3-4 and L4-5 with degenerative spondylolisthesis at L4-5, but also some stenosis at T10-11. Plan: Today I spent an extensive amount of time reviewing both MRI images with the patient and her , today's appoint was 50 minutes in length, and I reviewed the images in great detail. I then went on to explain to the patient that though certainly she could pursue some conservative measures such as injections, I think this would only alleviate pain, I think the developing symptoms in her lower extremities is coming from the stenosis she is having, a thoracic MRI for you today reveals the patient to have some developing stenosis in the lower thoracic spine. I then went on to describe operative intervention for both areas which would include lateral cage placement at L4-5, to be followed with posterior instrumentation and fusion at L4-5, this would also include decompression at L3-4 and L4-5. I did note that if the lateral cage placement is not possible we would include a TLIF type approach and cage placement in that manner. I also reviewed the thoracic findings explaining that due to the developing decompression I think this also is probably contributing to some of her symptoms, my recommended procedure in that region would be a posterior decompression at T10-11 to address the stenosis but instrumented posterior fusion T10-T12, extension to T12 due to the compression fracture and also developing stenosis at that level. Discussed was the hospital course postoperative course, the potential need for rehabilitation takes mean after the surgery. Also discussed were potential risk complications with both procedures including but not exclusive to chances of inf ection, neurologic injury, the patient is a former smoker, I touched upon the fact of relatively high fusion rate with possibility of additional surgery if nonunion were to develop, also I discussed the lateral approach symptomatology that can occur through the psoas muscle to the L4-5 level. At this time he would like to move ahead with the procedure, we will do the lumbar procedure first, and allow this to heal anywhere from 6 to 8 weeks and then pursue the thoracic procedure, that is also their preference. 09/19/24 OV: Patient returns for her upcoming surgery on October 07, specifically lateral cage placement at L4-5 along with posterior instrumentation fusion at that level along with decompression at L3-4 and L4-5. She had a number of questions which I answered including hospital course and postoperative follow-up. She also has some narrowing in the lower thoracic spine, our plan will be to let the patient recover from the lumbar surgery before considering any additional procedure. Impression: Lumbar stenosis with degenerative spondylolisthesis. Will move ahead with the surgery as discussed, questions were answered, follow-up 2 weeks afterwards. Admission Exam (Per Admitting) 04/25/24 OV: Pain is indicated as far as the area of location just above the bra strap on the midline region, left lumbosacral region. She can raise up on toes and heels without any weakness. While sitting I could elicit a 1/4 knee reflex absent ankle reflex, EHL knee flexion extension strength are all intact, she had negative straight leg raise bilaterally. Principal Diagnosis Same as "Discharge Diagnosis" noted below under Discharge Instructions. Discharge Exam . Limited achiness in the lumbar spine and improving. Motor intact in the lower extremities, incision with limited serosanguineous drainage. Discharge Data Consultations 10/07/24 13:15 Consult Hospitalist Routine Procedures Performed Operation Date: 10/07/24 07:30 Actual Procedures p L3-L4 , L4-L5 Laminectomy, L4-L5 Lumbar Interbody Fusion, Spinal Cord Monitoring (Not Applicable) - Mario Alberto Canales MD Ordered Studies 10/07/24 CT lumbar spine wo con Routine 10/07/24 07:30 FL lumbar spine 2-3V Routine Hospital Course (1) Status post lumbar spine surgery for decompression of spinal cord: (2) S/P lumbar spinal fusion: (3) Degenerative spondylolisthesis: (4) Spinal stenosis of lumbar region with neurogenic claudication: (5) Lumbar stenosis: Plan On October 07, 2024 Elizabeth arrived at [facility] operating room and underwent L3-L4, L4-L5 Laminectomy, L4-L5 Lumbar Interbody Fusion, Spinal Cord Monitoring without complications. Patient had general anesthesia for the procedure. Patient was admitted to the general orthopedic floor in stable condition postoperatively for pain control and mobilization with physical therapy; they safely and properly performed the ADL tasks demonstrated by PT/OT and met all goals. Pain was controlled with IV pain medication, with a transition to oral medications. Normal return of bowel and bladder function. They worked with therapy, vital signs were acceptable, no need for transfusion, deemed safe for discharge. Patient was then discharged home in stable condition, with self-care and assistance from her . Patient will follow-up with Dr. Canales in the orthospine clinic in approximately 2 weeks, as scheduled, for postoperative care. PG Care Time/CCT Total # of Minutes Spent Total Time Spent with Patient: Total time spent is greater than 50% in coordination of care (as documented) at patient's floor/unit and/or counseling patient: Discharge Plan Discharge Items Patient Disposition: Home - Self-Care Reason For Visit: Facet Arthropathy, Lumbosacral, Spinal Stenosis of Discharge Diagnosis: s/p lumbar decompression and fusion Activity: Per Instructions section Lifting: No more than 10 pounds Bathing: May shower/bathe in 3 days Weightbearing: Full weightbearing Non-emergency contact: Surgeon Call non-emergency contact if: your pain is worsening, your temperature is above 101 and your wound has increased drainage Follow-up/Referrals: Edward Harman MD [Primary Care Provider] - Maroi Alberto Canales MD [Surgeon] - (as scheduled on 10/24/24 @ 11:00) Diet: Regular Addtl Attending Provider Instructions: May shower on 3rd day after surgery. You can wash the incision and surgical site with soap and water briefly and then blot dry with a clean towel/cloth. Cover with a new, sterile dry dressing. If unable to change your dressing, then leave hospital dressing intact and cover the area for showering. Do NOT soak incision. No strenuous activity, lifting, or exercise until further instructed. Use the prescribed pain medication, or [id number] Tylenol, as needed for pain relief -- follow directions on the bottle; limit Tylenol to 4,000 mg maximum in a 24-hour period. No use of NSAIDs (i.e ibuprofen/Advil/Motrin, naproxen/Aleve, etc. for at least 2 months after surgery] Your Olmesartan has been reduced to 20mg on discharge. - You have had several episodes of low blood pressure upon standing while here. Reducing this medication will help keep your blood pressure in normal range when standing. Please follow your blood pressure closely and follow up with your PCP within 1-2 weeks of discharge for further recommendations. Pending Studies at Discharge: No Stand-Alone Forms: My iDev[employer], Smoking Cessation Medications and DC Order Prescriptions: New tramadol 50 mg Tablet 50 mg PO Q6H PRN (Reason: pain) Qty: 24 0RF olmesartan 20 mg tablet 20 mg PO DAILY Qty: 30 0RF Continued hydrochlorothiazide 25 mg tablet 25 mg PO QAM Qty: 90 3RF calcium carbonate-vitamin D3 600 mg(1,500mg) -200 unit tablet 1 tab PO BID melatonin 5 mg capsule 5 mg PO DAILY PRN (Reason: Sleep) carvedilol 25 mg tablet 25 mg PO BID Qty: 180 3RF potassium chloride 20 mEq tablet extended release 20 meq PO BID Qty: 180 3RF Prolia 60 mg/mL syringe 60 mg subcut ONCE Qty: 1 1RF Patient Comments: "I havent had that yet albuterol sulfate 90 mcg/actuation HFA aerosol inhaler 2 puff INH Q6H PRN (Reason: Shortness Of Breath Or Wheezing) Qty: 18 0RF simethicone 125 mg capsule 125 mg PO DAILY cholecalciferol (vitamin D3) PO mecobalamin (vitamin B12) PO budesonide 3 mg capsule,delayed,extend.release 3 mg PO Q OTHER DAY Anoro Ellipta 62.5-25 mcg/actuation blister with device 1 inh inhalation QAM Discontinued olmesartan 40 mg tablet 40 mg PO QAM No Action ondansetron 4 mg tablet,disintegrating 4 mg PO Q8H PRN (Reason: nausea and vomiting) Qty: 20 0RF Discharge Orders: Discharge Order (Routine); Ordered 10/09/24 Ordered By: Troy Cuevas/Other Patient Handouts: Hypertension Dc, Hypotension Dc, Lumbar Fusion Dc Admission Data Admit Date/Time: 10/07/24 13:15 Attending Provider: Mario Alberto Canales Admit Provider: Mario Alberto Canalse Primary Care Provider: Edward Harman Other Providers: Aure Tiwari Other Interventions: Discharge Summary Assessment (RN) Last Done: 10/09/24 12:23
== END 2024-10-09 13:33 | disposition home or self-care (01) | DRG 451 ==
LOC: ASU 06:28 → 3E 13:15
DX: Z97.4 Presence of external hearing-aid; Z79.899 Other long term (current) drug therapy; Z90.2 Acquired absence of lung [part of]; M47.817 Spondylosis without myelopathy or radiculopathy, lumbosacral region; R73.03 Prediabetes; Z88.5 Allergy status to narcotic agent; M48.062 Spinal stenosis, lumbar region with neurogenic claudication; Z87.891 Personal history of nicotine dependence; Z85.118 Personal history of other malignant neoplasm of bronchus and lung; Z92.21 Personal history of antineoplastic chemotherapy; I10 Essential (primary) hypertension; Z88.8 Allergy status to other drugs, medicaments and biological substances

== ENCOUNTER 2025-05-27 05:51 | Inpatient (IN) ==
--- NOTE | 2025-05-06 10:32 | PAT Medication Instructions ---
Medication Instructions Date of Service May 06, 2025 Home Medications Medication Instructions Recorded albuterol sulfate 90 mcg/actuation 2 puff inhalation Q6H PRN 04/20/24 aerosol inhaler Shortness Of Breath Or Wheezing #18 grams carvedilol 25 mg tablet 25 mg PO BID #180 tabs 04/30/24 potassium chloride 20 mEq 20 meq PO BID #180 tabs 04/30/24 tablet,extended release hydrochlorothiazide 25 mg tablet 25 mg PO QAM #90 tabs 10/30/24 calcium 600 mg (as carbonate)-vitamin D3 5 mcg (200 unit) tablet 1 tab PO BID melatonin 5 mg capsule 5 - 10 mg PO DAILY PRN Sleep albuterol sulfate 90 mcg/actuation aerosol inhaler 2 puff inhalation Q6H PRN Shortness Of Breath Or Wheezing carvedilol 25 mg tablet 25 mg PO BID potassium chloride 20 mEq tablet,extended release 20 meq PO BID budesonide 3 mg capsule,delayed,extended release 3 mg PO QAM umeclidinium 62.5 mcg-vilanterol 25 mcg/actuation powdr for inhalation (Anoro Ellipta) 1 inh inhalation QAM simethicone 125 mg capsule 125 mg PO DAILY PRN gas/bloating hydrochlorothiazide 25 mg tablet 25 mg PO QAM cholecalciferol (vitamin D3) 50 mcg (2,000 unit) capsule (Vitamin D3) 50 mcg PO QAM cyanocobalamin (vitamin B-12) 1,000 mcg tablet (Vitamin B-12) 1,000 mcg PO QAM denosumab 60 mg/mL subcutaneous syringe (Prolia) 60 mg subcut UD olmesartan 20 mg tablet 10 mg PO HS triamcinolone acetonide 0.1 % topical cream 1 applic topical BID Skin Irritation Continue as directed denosumab 60 mg/mL subcutaneous syringe (Prolia) 60 mg subcut UD STOP taking 24 hours before surgery triamcinolone acetonide 0.1 % topical cream 1 applic topical BID Skin Irritation DO NOT take the morning of surgery calcium 600 mg (as carbonate)-vitamin D3 5 mcg (200 unit) tablet 1 tab PO BID potassium chloride 20 mEq tablet,extended release 20 meq PO BID simethicone 125 mg capsule 125 mg PO DAILY PRN gas/bloating hydrochlorothiazide 25 mg tablet 25 mg PO QAM cholecalciferol (vitamin D3) 50 mcg (2,000 unit) capsule (Vitamin D3) 50 mcg PO QAM cyanocobalamin (vitamin B-12) 1,000 mcg tablet (Vitamin B-12) 1,000 mcg PO QAM Take morning of surgery With a small sip of water, OTHERWISE NOTHING TO EAT OR DRINK AFTER MIDNIGHT: albuterol sulfate 90 mcg/actuation aerosol inhaler 2 puff inhalation Q6H PRN Shortness Of Breath Or Wheezing (use if needed; please bring rescue inhaler with you to hospital day of surgery if possible) carvedilol 25 mg tablet 25 mg PO BID budesonide 3 mg capsule,delayed,extended release 3 mg PO QAM umeclidinium 62.5 mcg-vilanterol 25 mcg/actuation powdr for inhalation (Anoro Ellipta) 1 inh inhalation QAM Take evening before surgery calcium 600 mg (as carbonate)-vitamin D3 5 mcg (200 unit) tablet 1 tab PO BID melatonin 5 mg capsule 5 - 10 mg PO DAILY PRN Sleep (if needed) albuterol sulfate 90 mcg/actuation aerosol inhaler 2 puff inhalation Q6H PRN Shortness Of Breath Or Wheezing (if needed) carvedilol 25 mg tablet 25 mg PO BID potassium chloride 20 mEq tablet,extended release 20 meq PO BID simethicone 125 mg capsule 125 mg PO DAILY PRN gas/bloating (if needed) olmesartan 20 mg tablet 10 mg PO HS Other Notes If you have any questions please call us at [phone] or [phone] or [phone] or [phone]
--- NOTE | 2025-05-13 11:15 | Anesthesiology Consultation ---
Date of Service May 13, 2025 Assessment & Plan (1) Encounter for pre-operative examination: - Infectious disease screening: Per assessment on 05/13/25- No known recent infectious disease contacts or current infectious disease symptoms. - S/P L3-L5 Laminectomy and fusion (10/07/24): Grade view 1, Bourne#2, ETT 7, atraumatic, [facility] Chart Review Chart Review: Acceptable Risk for Surgery and Patient seen in Pre Admission Testing Teaching & Discussion Pre-Anesthesia Teaching/Discussion Notes: Instructed NPO after midnight before surgery,except medications with 15 cc of water. Medication instructions provided according to the PAT guidelines. History Surgery Operation Date: 05/27/25 07:30 Proposed Procedures p T10-T11 Decompression, T10-T11 T11-T12 Posterior Fusion Instrumentation Spinal Cord Monitoring - Mario Alberto Canales MD Height/Weight Height: 5 ft 5 in Weight: 55.8 kg Allergies Allergy/AdvReac Type Severity Reaction Status Date / Time nickel Allergy Mild Rash Verified 05/05/25 09:46 adhesive tape Allergy Skin Verified 05/13/25 12:26 peeling codeine AdvReac Intermediate Nausea Verified 05/05/25 09:46 meloxicam [From Mobic] AdvReac Intermediate Diarrhea Verified 05/05/25 09:46 oxycodone AdvReac Intermediate Nausea Verified 05/05/25 09:46 azithromycin AdvReac Mild Diarrhea Verified 05/05/25 09:46 lactose AdvReac Mild Diarrhea Verified 05/05/25 09:46 Medications Home Medications Medication Instructions Recorded Confirmed Last Taken calcium 600 mg (as 1 tab PO BID 03/12/19 05/05/25 10/06/24 18:00 carbonate)-vitamin D3 5 mcg (200 unit) tablet melatonin 5 mg capsule 5 - 10 mg PO DAILY PRN Sleep 11/23/22 05/05/25 10/06/24 20:00 albuterol sulfate 90 mcg/actuation 2 puff inhalation Q6H PRN 04/20/24 05/05/25 Unknown aerosol inhaler Shortness Of Breath Or Wheezing #18 grams carvedilol 25 mg tablet 25 mg PO BID #180 tabs 04/30/24 05/05/25 10/07/24 04:30 potassium chloride 20 mEq 20 meq PO BID #180 tabs 04/30/24 05/05/25 10/06/24 20:00 tablet,extended release budesonide 3 mg 3 mg PO QAM 09/05/24 05/05/25 10/06/24 06:00 capsule,delayed,extended release umeclidinium 62.5 mcg-vilanterol 1 inh inhalation QAM 09/05/24 05/05/25 10/07/24 04:30 25 mcg/actuation powdr for inhalation (Anoro Ellipta) simethicone 125 mg capsule 125 mg PO DAILY PRN gas/bloating 09/27/24 05/05/25 10/06/24 20:00 hydrochlorothiazide 25 mg tablet 25 mg PO QAM #90 tabs 10/30/24 05/05/25 Unknown cholecalciferol (vitamin D3) 50 50 mcg PO QAM 05/05/25 05/05/25 Unknown mcg (2,000 unit) capsule (Vitamin D3) cyanocobalamin (vitamin B-12) 1,000 mcg PO QAM 05/05/25 05/05/25 Unknown 1,000 mcg tablet (Vitamin B-12) denosumab 60 mg/mL subcutaneous 60 mg subcut UD 05/05/25 05/05/25 Unknown syringe (Prolia) olmesartan 20 mg tablet 10 mg PO HS 05/05/25 05/05/25 Unknown triamcinolone acetonide 0.1 % 1 applic topical BID Skin 05/05/25 05/05/25 Unknown topical cream Irritation Past Medical History Medical History (Updated 05/13/25 @ 13:00 by Verna Mckeon) Chronic obstructive pulmonary disease Compression fracture of thoracic spine, non-traumatic Degenerative disc disease Degenerative spondylolisthesis Eczema Flares during winter GERD (gastroesophageal reflux disease) Per records, pt denies Glaucoma per medical record Hearing loss B/L hearing aids Hiatal hernia no issues History of colon polyps History of COVID-19 ~2022: mild symptoms, resolved HTN (hypertension) Hyponatremia Chronic IBS (irritable bowel syndrome) Osteoarthritis Osteopenia Osteoporosis Prediabetes 05/13/25: A1C 5.9% Patient denies diagnosis Primary lung adenocarcinoma Dx 2019, s/p surgery + chemo Spinal stenosis Exercise / Class Metabolic Activity III < 4 Walking/Shop/Light housework Past Family History Family History Father , 87yo Type 2 diabetes mellitus Myocardial infarction Mother , 49yo Cerebral aneurysm Sister No problems noted. Son No problems noted. Daughter No problems noted. Other No family history of adverse response to anesthesia Denies family history of Colon cancer Ovarian cancer Prostate cancer Crohn's disease Past Surgical History Surgical History H/O esophagogastroduodenoscopy History of cataract surgery right/left History of colonoscopy History of lumbar surgery L3-L5 Laminectomy and fusion: Grade view 1, Bourne#2, ETT 7, atraumatic, [facility] (10/07/24) History of lung biopsy History of lung surgery Left Robotic Video Assisted Thoracoscopy with Left Upper Wedge Resection and Mediastinal Lymphadenectomy (11/14/19) History of total knee replacement right Past Anesthesia History No Hx of Anesthesia Complications and No Family Hx of Anesthesia Complications History of PONV No Hx of PONV and No Hx of Motion Sickness Social History Smoking Status: Former smoker tobacco type: cigarettes Do You Dip or Chew Tobacco: No Smoking End Date: 2019 Hx Alcohol Use: Yes Alcohol type: beer alcohol intake frequency: 0-2 drinks per day (1-2 beers daily ) Hx Substance Use: No substance use type: does not use Review of Systems Patient denies chest pain, shortness of breath, fever, chills, cough, wheezing. Physical Exam Vital Signs BP 162/82 P 60 SP02 97%RA RESP 16 Physical Full cervical extension range of motion. Full TMJ range of motion. TMD 4 finger breaths Mallampati Score I Dentition: intact, + caps/crowns Lungs: clear throughout to auscultation Cardiac: regular rate and rhythm, no murmurs noted Spine: normal Carotid arteries: negative bruit Extremities: no LE edema Lab Results Anesthesia Preop Results Results Anesthesia Widget: WBC 4.75 K/ul (4.8-10.8) L 05/13/25 Hgb 13.1 g/dl (12.0-16.0) 05/13/25 Hct 38.7 % (37.0-47.0) 05/13/25 Plt 244 K/uL (130-400) 05/13/25 Na 132 mmol/L (136-145) L 05/13/25 K 3.8 mmol/L (3.5-5.1) 10/07/25 Cl 98 mmol/L (98-107) 05/13/25 CO2 29 mmol/L (21-32) 05/13/25 BUN 13 mg/dl (6-23) 05/13/25 Creat 0.62 mg/dl (0.6-1.2) 05/13/25 Glucose Level 100 mg/dl (70-99(Fasting)) H 05/13/25 PT 11.1 Seconds (9.0-12.0) 05/13/25 PTT 27 Seconds (21-31) 05/13/25 INR 1.1 (0.9-1.1) 05/13/25 HA1c 5.9 % (4.5-5.6) H 05/13/25 Blood Type A Positive 05/13/25 Antibody Screen NEGATIVE 05/13/25 Testing Electrocardiogram Date: 09/19/24 SR with first degree AVB at 68bpm. Minimal voltage criteria for LVH, may be normal variant. Echocardiogram Date: 02/07/24 EF > 70%. No regional wall motion abnormality. Mild concentric LVH. Mild LAD. No significant valvular disease. Normal estimated RVSP. Small pericardial effusion without echocardiographic evidence of tamponade physiology. No significant change compared to prior study 10/26/2019 per report. Other Testing Chest CT Date: 10/04/24 FINDINGS: Stable emphysema. Stable operative changes at the left upper posterior with mild scarring. Scattered small pulmonary nodules and groundglass opacities are stable, largest measuring 1.3 cm lateral right upper lobe series 4 image 17, stable. No significant pulmonary nodule seen. No new consolidation or pleural effusion. No enlarged adenopathy. No pericardial effusion. There is stable moderate height loss at the T11 vertebral body. There is interval moderate height loss at the T6 vertebral body. IMPRESSION: 1. Stable pulmonary nodules as described. 2. Interval moderate height loss at the T6 vertebral body. No other adverse change seen.
[2025-05-27] MEDS: ACETAMINOPHEN 500 MG TAB PO SCH (06:28)
[2025-05-27] MEDS: LR 15ML/HR IV SCH (06:28)
[2025-05-27] MEDS: LR 60ML/HR IV SCH (06:29)
[2025-05-27] MEDS ORDERED: PROPOFOL IV EMULSION 10 MG/ML 20 ML VIAL IV ONE (07:02)
[2025-05-27] MEDS ORDERED: ONDANSETRON INJ 2 MG/ML 2 ML VIAL ONE (07:02)
[2025-05-27] MEDS ORDERED: DEXAMETHASONE SOD INJ 4 MG/ML VIAL ONE (07:02)
[2025-05-27] MEDS ORDERED: MIDAZOLAM HCL 1 MG/ML 2ML VIAL ONE (07:02)
[2025-05-27] MEDS ORDERED: GLYCOPYRROLATE 0.2 MG/ML VIAL ONE (07:02)
[2025-05-27] MEDS ORDERED: ROCURONIUM BROMIDE 10 MG/ML 5 ML VIAL IV ONE (07:02)
[2025-05-27] MEDS ORDERED: LIDOCAINE 2% 2 ML VIAL/AMP(20MG/ML) INFIL ONE (07:02)
[2025-05-27] MEDS ORDERED: SUGAMMADEX SODIUM 200 MG/2 ML VIAL IV ONE (07:05)
[2025-05-27] MEDS ORDERED: PROPOFOL IV EMULSION 10 MG/ML 100 ML VIAL IV ONE ×2 (07:07→09:57)
[2025-05-27] MEDS ORDERED: REMIFENTANIL HCL 1 MG VIAL IV ONE ×2 (07:13→09:58)
[2025-05-27] MEDS ORDERED: ATROPINE SULFATE 0.1 MG/ML 10ML SYR IV PRN (07:17)
[2025-05-27] MEDS ORDERED: ONDANSETRON INJ 2 MG/ML 2 ML VIAL IV PRN (07:17)
[2025-05-27] MEDS ORDERED: MAG SULFATE 50% 1GM/2ML VIAL IV ONE (07:20)
--- NOTE | 2025-05-27 07:23 | History & Physical Bridge Note ---
Date of Service May 27, 2025 History & Physical Bridge Note I have examined the patient, reviewed the History & Physical and in the interval since the performance of the History & Physical I have noted the following changes of clinical significance: no changes noted
--- NOTE | 2025-05-27 07:27 | History & Physical Report ---
Date of Service May 27, 2025 History of Present Illness Chief Complaint: thoracic stenosis Primary Care Provider: Edward Harman MD Patient returns now status post her surgery from posterior decompression at L3-4 and L4-5, posterior instrumentation and fusion at L4-5. She reports that overall she continues to have definite improvement in her lower extremities and had questions about the thoracic stenosis at T10. No no changes on exam, improved ambulation. 2 views lumbar spine AP and lateral views reveal the instrumentation at L4-5 to be in proper position. Review of thoracic MRI from May 30, 2024, is my separate interpretation, this reveals reviewed the sagittal T2 and also the STIR reveals evidence of combination of acute but subacute findings involving T6 and T11 in terms of compression fracture. The notable area of stenosis is at T10-11, no signal in the cord is noted but there is combination tightness from limited disc bulging at this level but also facet arthropathy. There is a lesser degree of stenosis developing at T11-12. Impression: Now approaching 3 months out from surgery at L3-4 and L4-5 with overall net improvement of symptoms but still continues stenosis at the T10-11 level and developing stenosis at T11-12. Plan: Today I reviewed the MRI images with the patient once again, and at this time I feel she still has significant stenosis at the T10 level which I think might be causing some continued lower extremity symptoms though she is improved status post the surgery. At this time she would like to proceed with the previous surgery discussed which would be a posterior decompression at T10-11, instrumentation and fusion at T10-11 and also T11-12 due to the developing stenosis adjacent next to the T10-11 level. We discussed the hospital and postoperative course, she would like to get this done in May as she is in the process of getting moved into a assisted living situation at the beginning of April, I have asked her to return to the office for additional discussion and bring her if she would like to review all this information for the beginning of May surgery, she is in agreement with this plan. Allergies Allergy/AdvReac Type Severity Reaction Status Date / Time nickel Allergy Mild Rash Verified 05/27/25 06:10 adhesive tape Allergy Skin Verified 05/27/25 06:10 peeling codeine AdvReac Intermediate Nausea Verified 05/27/25 06:10 meloxicam [From Mobic] AdvReac Intermediate Diarrhea Verified 05/27/25 06:10 oxycodone AdvReac Intermediate Nausea Verified 05/27/25 06:10 azithromycin AdvReac Mild Diarrhea Verified 05/27/25 06:10 lactose AdvReac Mild Diarrhea Verified 05/27/25 06:10 Home Medications Medication Instructions Recorded Confirmed Type calcium 600 mg (as 1 tab PO BID 03/12/19 05/27/25 History carbonate)-vitamin D3 5 mcg (200 unit) tablet melatonin 5 mg capsule 5 - 10 mg PO DAILY PRN Sleep 11/23/22 05/27/25 History albuterol sulfate 90 mcg/actuation 2 puff inhalation Q6H PRN 04/20/24 05/27/25 Rx aerosol inhaler Shortness Of Breath Or Wheezing #18 grams potassium chloride 20 mEq 20 meq PO BID #180 tabs 04/30/24 05/27/25 Rx tablet,extended release budesonide 3 mg 3 mg PO QAM 09/05/24 05/27/25 History capsule,delayed,extended release umeclidinium 62.5 mcg-vilanterol 1 inh inhalation QAM 09/05/24 05/27/25 History 25 mcg/actuation powdr for inhalation (Anoro Ellipta) simethicone 125 mg capsule 125 mg PO DAILY PRN gas/bloating 09/27/24 05/27/25 History hydrochlorothiazide 25 mg tablet 25 mg PO QAM #90 tabs 10/30/24 05/27/25 Rx cholecalciferol (vitamin D3) 50 50 mcg PO QAM 05/05/25 05/27/25 History mcg (2,000 unit) capsule (Vitamin D3) cyanocobalamin (vitamin B-12) 1,000 mcg PO QAM 05/05/25 05/27/25 History 1,000 mcg tablet (Vitamin B-12) denosumab 60 mg/mL subcutaneous 60 mg subcut UD 05/05/25 05/27/25 History syringe (Prolia) olmesartan 20 mg tablet 10 mg PO HS 05/05/25 05/27/25 History triamcinolone acetonide 0.1 % 1 applic topical BID Skin 05/05/25 05/27/25 History topical cream Irritation carvedilol 25 mg tablet 25 mg PO BID #180 tabs 05/14/25 05/27/25 Rx Past Med/Surg History Problem List Encounter for pre-operative examination Degenerative thoracic spinal stenosis Osteoporosis Facet arthropathy, lumbosacral Lumbosacral spondylosis Spinal stenosis of lumbar region with neurogenic claudication Lumbar stenosis Hyperglycemia Vitamin B12 deficiency Bilateral primary osteoarthritis of knee Severe chronic obstructive pulmonary disease Primary adenocarcinoma of upper lobe of left lung Hyperlipidemia Glaucoma Hypertension Medical History Spinal stenosis Glaucoma per medical record Degenerative disc disease History of COVID-19 ~2022: mild symptoms, resolved Chronic obstructive pulmonary disease Osteoarthritis Degenerative spondylolisthesis Prediabetes 05/13/25: A1C 5.9% Patient denies diagnosis Osteoporosis IBS (irritable bowel syndrome) Compression fracture of thoracic spine, non-traumatic History of colon polyps Hyponatremia Chronic Primary lung adenocarcinoma Dx 2019, s/p surgery + chemo Osteopenia Hiatal hernia no issues GERD (gastroesophageal reflux disease) Per records, pt denies HTN (hypertension) Eczema Flares during winter Hearing loss B/L hearing aids Surgical History History of lumbar surgery L3-L5 Laminectomy and fusion: Grade view 1, Bourne#2, ETT 7, atraumatic, [facility] (10/07/24) History of total knee replacement right History of lung biopsy History of lung surgery Left Robotic Video Assisted Thoracoscopy with Left Upper Wedge Resection and Mediastinal Lymphadenectomy (11/14/19) History of cataract surgery right/left H/O esophagogastroduodenoscopy History of colonoscopy Family History Father , 87yo Type 2 diabetes mellitus Myocardial infarction Mother , 49yo Cerebral aneurysm Sister No problems noted. Son No problems noted. Daughter No problems noted. Other No family history of adverse response to anesthesia Denies family history of Colon cancer Ovarian cancer Prostate cancer Crohn's disease Social History Smoking Status: Former smoker Tobacco Type: Cigarettes Age Started Using Tobacco: 20; Age Quit Using Tobacco: 73; packs per day: 1; Smoking End Date: Quit 2019; Second Hand Exposure: Yes (IN THE PAST); Do You Dip or Chew Tobacco: No; Tobacco Cessation Education Requested by Patient: No Hx Alcohol Use: Yes Alcohol type: beer Alcohol Intake Frequency: 4 or More x per/Week Hx Substance Use: No Preferred Language: Khmer Communication Ability: Effective Visual Impairment: No Limitations Hearing Ability: Use of Hearing Aid [employer] Skills Required: No Beliefs That Will Affect Care: None marital status: Current Living Situation: Spouse Current Living Situation Comment: lives with at [facility]/independent living current occupational status: retired 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 ) during the past year weight has: remained stable Dental Care, Regularly: Yes Physical Activity Frequency: 3-4 Times per Week Seatbelt Use: always Sunscreen Use: Yes Assistive Devices: Glasses and Hearing Aid - Bilateral Review of Systems All systems reviewed & are unremarkable except as noted in HPI & below. Physical Exam . Results & Data Results & Data Laboratory Results . Diagnostic Findings . PG Care Time/CCT Total # of Minutes Spent Total Time Spent with Patient: Total time spent is greater than 50% in coordination of care (as documented) at patient's floor/unit and/or counseling patient: Coding Level of Care Code 46233 INT INP/OBS CARE 1MIN
[2025-05-27] MEDS ORDERED: TRANEXAMIC ACID / 0.7% NACL 1000MG/100ML BAG IV ONE (08:56)
[2025-05-27] MEDS: TRANEXAMIC ACID 100 MG/ML 10 ML VIAL IV ONE (08:57)
[2025-05-27] MEDS: GELATIN SPONGE 12-7MM ONE (12:00)
[2025-05-27] MEDS: VANCOMYCIN HCL 1000MG/20ML VIAL ONE (12:00)
[2025-05-27] MEDS: BUPIVACAINE/EPINEPHRINE 0.5% MPF 1:200,000 30 ML VIAL ONE (12:00)
[2025-05-27] MEDS: THROMBIN 5000 UNITS KIT ONE (12:00)
[2025-05-27] MEDS: FLOSEAL HEMOSTATIC MATRIX 5ML TOP ONE (12:01)
--- NOTE | 2025-05-27 12:24 | Post Operative Brief Note ---
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 Removed at end of procedure at surgeon request.)
[2025-05-27] MEDS ORDERED: SOD PHOSPHATE/SOD BIPHOSPHATE ENEMA 132 ML BTL PR PRN (12:25)
[2025-05-27] MEDS ORDERED: LORazepam Inj 0.5 MG in SYRINGE 0.25 ML IV PRN (12:25)
[2025-05-27] MEDS ORDERED: DO NOT ADMINISTER FLU VACCINE PRN (12:25)
[2025-05-27] MEDS ORDERED: METOCLOPRAMIDE HCL INJ 5 MG/ML 2 ML VIAL IV PRN (12:25)
[2025-05-27] MEDS ORDERED: MAGNESIUM HYDROXIDE SUSP 30 ML UDC PO PRN (12:25)
[2025-05-27] MEDS ORDERED: ALUMINUM/MAGNESIUM SUSP 30 ML UDC PO PRN (12:25)
[2025-05-27] MEDS ORDERED: NALOXONE HCL 0.4 MG/1 ML VIAL/CARP IV PRN (12:25)
[2025-05-27] MEDS ORDERED: PROMETHAZINE 12.5 MG/50.5 ML BAG IV PRN (12:25)
[2025-05-27] MEDS ORDERED: HYDROmorphone INJ 0.5 MG/0.5 ML SYR IV PRN (12:25)
[2025-05-27] MEDS ORDERED: DO NOT ADMINISTER PNEUMOCOCCAL VACCINE PRN (12:25)
[2025-05-27] MEDS ORDERED: ONDANSETRON 4 MG OD TAB PO PRN (12:25)
[2025-05-27] MEDS ORDERED: FAMOTIDINE 20 MG TAB PO PRN (12:25)
[2025-05-27] MEDS ORDERED: ACETAMINOPHEN 1,000 MG/100 ML VIAL IV PRN (12:25)
[2025-05-27] MEDS ORDERED: diphenhydrAMINE Capsule 25 MG CAP PO PRN (12:25)
[2025-05-27] MEDS ORDERED: LORazepam 0.5 MG TAB PO PRN (12:25)
[2025-05-27] MEDS ORDERED: HYDROmorphone INJ 1 MG/ML SYRINGE IV PRN (12:25)
--- NOTE | 2025-05-27 13:47 | Anesthesiology Progress Note ---
Date of Service May 27, 2025 Anesthesia Post Procedure Vital Signs Vital Signs: Temp Pulse Pulse Resp BP Pulse Ox O2 Del Method 05/27/25 13:30 61 14 175/72 H 96 Room Air 05/27/25 13:15 59 L 12 160/79 H 94 Room Air 05/27/25 13:00 59 L 12 165/75 H 93 Room Air 05/27/25 12:55 57 L 14 178/75 H 96 Room Air 05/27/25 12:45 60 16 182/82 H 100 Oxymask 05/27/25 12:35 61 16 170/77 H 98 Oxymask 05/27/25 12:28 36 C L 59 L 16 178/79 H 98 Oxymask 05/27/25 06:15 36.5 C 60 20 194/80 H 97 Room Air O2 Flow Rate 05/27/25 13:30 05/27/25 13:15 05/27/25 13:00 05/27/25 12:55 05/27/25 12:45 3 05/27/25 12:35 3 05/27/25 12:28 6 05/27/25 06:15 Pain Intensity Medial Back: Pain Intensity: 5 Transfer of Care Handoff Completed per policy Notes Mental Status: alert / awake / arousable Patient Amnestic to Procedure: Yes Nausea / Vomiting: adequately controlled Pain: adequately controlled Airway Patency, RR, SpO2: stable & adequate BP & HR: stable & adequate Hydration State: stable & adequate Anesthetic Complications: no major complications apparent and Pt Satisfied with anesthetic care
[2025-05-27] MEDS ORDERED: ALBUTEROL HFA 8 GM INHALER INH PRN (15:08)
[2025-05-27] MEDS ORDERED: MELATONIN 3 MG TAB PO PRN (15:31)
[2025-05-27] MEDS ORDERED: SIMETHICONE 80 MG CHEW PO PRN (15:32)
--- NOTE | 2025-05-27 16:14 | Operative Report ---
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 T10-11 posterior thoracic decompression/laminectomy. (09214) 2. T1011 posterior arthrodesis. (64452) 3. T11-12 posterior arthrodesis. 11681) 4. Posterior segmental instrumentation, Medtronic modular. (55473) 5. Products of decompression utilized for fusion purposes. (60864) 6. Stereotactic CT-guided navigation for instrumentation. (61767) Patient was taken the operating room and after adequate anesthesia was carefully position prone on the Elia frame, carefully checked for positioning. After doing so, a preprepped was performed, I brought in fluoroscopy and marked for the approximate location of the incision extending from T10-T12. Prep and drape was performed, began the procedure with a midline incision carried down through subcutaneous tissues, past either side of the spinous processes exposing the lamina of T10-T11 and T12, this was confirmed fluoroscopically. The CT guided navigation instrumentation was attached to the spinous processes, the O-arm was brought in and scanned the region as noted. Instrumentation was then performed, using the navigation system from [employer], I utilized a high-speed bur to make the start point for the pedicle screws starting at T12. The start point was performed with navigation followed by insertion of a navigated gearshift probe followed by tap and insertion of 5.5 millimeter screws at T12. I then followed this with insertion of 2 screws at T11 and then also at T10. Initially I placed a 4.5 diameter screw at T10 on the right, but replaced it with a later 5.5 millimeter screw. Screws Reuther 40 or 45 mm in length. All screws had excellent purchase, a final spin was then performed revealing excellent placement of the instrumentation. The decompression was then performed, the spinous process of T10 was cleaned of soft tissue, I then used a combination of the high-speed bur and rongeur to morselized the bone from the inferior laminectomy of T10, and also around the superior laminar edge of T11 at the interspace level where the stenosis was noted. I used a combination of high- speed bur to then continue to remove the facets laterally to an adequate width of decompression. The thickened ligamentum flavum and facets were then carefully removed using combination of curettes and Kerrison punches completing a decompression and the inferior laminar region of T10 and across superior laminar edge of T11. Upon completion, no issues were noted, the appropriate surfaces were decorticated for the fusion from T10 down to T12, the screw heads were then placed along with the rods and then all setscrews were torqued down properly. The fusion materials were then applied to the posterolateral aspect of T10-T11 and T12. Floseal was applied to the dura, vancomycin powder was placed, and the postoperative area was then closed using interrupted 0 Vicryl sutures, followed by 2-0 Vicryl sutures and nell for the skin. Sterile dressing was applied, the patient tolerated procedure well was taken to recovery in satisfactory condition. I attest to the content of the Intraoperative Record and any orders documented therein. Any exceptions are noted below.
--- NOTE | 2025-05-27 16:36 | Hospitalist Consultation ---
Date of Consultation May 27, 2025 Assessment & Plan (1) Degenerative thoracic spinal stenosis: (2) Hypertension: (3) Chronic obstructive pulmonary disease: (4) Prediabetes: Plan Elizabeth is a 79F with a PMHx of HTN, COPD, hyponatremia, osteopenia, primary adenocarcinoma of the upper lung, HLD, and B12 deficiency. Hospital medicine consulted for medical management. #S/p back surgery - T10-T11 Decompression, T10-T11, T11-T12 Posterior Fusion Instrumentation with Dr. Canales 05/27 pain control / dvt proh/ abx/ dispo planning per primary team EBL 150 - monitor CBC AM CBC and BMP #HTN - labile pressures noted on last PCP note. Hypertensive post op but 120/60s when I checked in the room Continue Coreg and olmesartan (or formulary equivalent) Hold HCTZ pending AM labs #COPD Continue home inhaler, nebs PRN on room air post op #Prediabetes Last A1c 5.9 - managed with diet Will check BSG with steroid use add insulin if needed Thank you for allowing us to participate in the care of this patient, please reach out with any questions or concerns. Hospital Medicine will continue to follow. History of Present Illness Reason for Consultation: medical management Requesting Physician: Dr. Canales Attending Physician: Mario Alberto Canales MD History of Present Illness Elizabeth is a 79F with a PMHx of HTN, COPD, hyponatremia, osteopenia, primary adenocarcinoma of the upper lung, HLD, B12 deficiency and who presents to the hospital for elective surgery with Dr. Canales. Seen postoperatively and feeling well. has not urinated or passed gas since surgery. reports taking her budesonide for colitis, her stool have been her normal caliber prior to admission. no cpap use. Allergies Allergy/AdvReac Type Severity Reaction Status Date / Time nickel Allergy Mild Rash Verified 05/27/25 06:10 adhesive tape Allergy Skin Verified 05/27/25 06:10 peeling codeine AdvReac Intermediate Nausea Verified 05/27/25 06:10 meloxicam [From Mobic] AdvReac Intermediate Diarrhea Verified 05/27/25 06:10 oxycodone AdvReac Intermediate Nausea Verified 05/27/25 06:10 azithromycin AdvReac Mild Diarrhea Verified 05/27/25 06:10 lactose AdvReac Mild Diarrhea Verified 05/27/25 06:10 Home Medications Medication Instructions Recorded Confirmed Type calcium 600 mg (as 1 tab PO BID 03/12/19 05/27/25 History carbonate)-vitamin D3 5 mcg (200 unit) tablet melatonin 5 mg capsule 5 - 10 mg PO DAILY PRN Sleep 11/23/22 05/27/25 History albuterol sulfate 90 mcg/actuation 2 puff inhalation Q6H PRN 04/20/24 05/27/25 Rx aerosol inhaler Shortness Of Breath Or Wheezing #18 grams potassium chloride 20 mEq 20 meq PO BID #180 tabs 04/30/24 05/27/25 Rx tablet,extended release budesonide 3 mg 3 mg PO QAM 09/05/24 05/27/25 History capsule,delayed,extended release umeclidinium 62.5 mcg-vilanterol 1 inh inhalation QAM 09/05/24 05/27/25 History 25 mcg/actuation powdr for inhalation (Anoro Ellipta) simethicone 125 mg capsule 125 mg PO DAILY PRN gas/bloating 09/27/24 05/27/25 History hydrochlorothiazide 25 mg tablet 25 mg PO QAM #90 tabs 10/30/24 05/27/25 Rx cholecalciferol (vitamin D3) 50 50 mcg PO QAM 05/05/25 05/27/25 History mcg (2,000 unit) capsule (Vitamin D3) cyanocobalamin (vitamin B-12) 1,000 mcg PO QAM 05/05/25 05/27/25 History 1,000 mcg tablet (Vitamin B-12) denosumab 60 mg/mL subcutaneous 60 mg subcut UD 05/05/25 05/27/25 History syringe (Prolia) olmesartan 20 mg tablet 10 mg PO HS 05/05/25 05/27/25 History triamcinolone acetonide 0.1 % 1 applic topical BID Skin 05/05/25 05/27/25 History topical cream Irritation carvedilol 25 mg tablet 25 mg PO BID #180 tabs 05/14/25 05/27/25 Rx Patient History Medical History Spinal stenosis Glaucoma per medical record Degenerative disc disease History of COV- ~2022: mild symptoms, resolved Chronic obstructive pulmonary disease Osteoarthritis Degenerative spondylolisthesis Prediabetes 05/13/25: A1C 5.9% Patient denies diagnosis Osteoporosis IBS (irritable bowel syndrome) Compression fracture of thoracic spine, non-traumatic History of colon polyps Hyponatremia Chronic Primary lung adenocarcinoma Dx 2020, s/p surgery + chemo Osteopenia Hiatal hernia no issues GERD (gastroesophageal reflux disease) Per records, pt denies HTN (hypertension) Eczema Flares during winter Hearing loss B/L hearing aids Surgical History History of lumbar surgery L3-L5 Laminectomy and fusion: Grade view 1, [place]#2, ETT 7, atraumatic, [facility] (10/07/24) History of total knee replacement right History of lung biopsy History of lung surgery Left Robotic Video Assisted Thoracoscopy with Left Upper Wedge Resection and Mediastinal Lymphadenectomy (11/14/19) History of cataract surgery right/left H/O esophagogastroduodenoscopy History of colonoscopy Family History Father , 87yo Type 2 diabetes mellitus Myocardial infarction Mother , 49yo Cerebral aneurysm Sister No problems noted. Son No problems noted. Daughter No problems noted. Other No family history of adverse response to anesthesia Denies family history of Colon cancer Ovarian cancer Prostate cancer Crohn's disease Social History Smoking Status: Former smoker Tobacco Type: Cigarettes Age Started Using Tobacco: 20; Age Quit Using Tobacco: 73; packs per day: 1; Smoking End Date: Quit 2019; Second Hand Exposure: Yes (IN THE PAST); Do You Dip or Chew Tobacco: No; Tobacco Cessation Education Requested by Patient: No Hx Alcohol Use: Yes Alcohol type: beer Alcohol Intake Frequency: 4 or More x per/Week Hx Substance Use: No Preferred Language: Albanian Communication Ability: Effective Visual Impairment: No Limitations Hearing Ability: Use of Hearing Aid Aircraft Machinist Required: No Beliefs That Will Affect Care: None marital status: Current Living Situation: Spouse Current Living Situation Comment: lives with at [facility]/independent living current occupational status: retired 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 ) during the past year weight has: remained stable Dental Care, Regularly: Yes Physical Activity Frequency: 3-4 Times per Week Seatbelt Use: always Sunscreen Use: Yes Assistive Devices: Glasses and Hearing Aid - Bilateral Review of Systems Review of Systems: All systems reviewed & are unremarkable except as noted in Subjective Physical Exam Physical Exam: General: NAD, VS as above Resp: normal respiratory effort, lungs clear to auscultation CV: RRR, no murmur, Abd: normal bowel sounds, non tender, soft Extremities: Moves all extremities, able to wiggle toes bilaterally Neuro: A&O x3, Results & Data Results & Data Vital Signs (Past 12 Hours) Vital Signs Temp Pulse Pulse Resp BP BP Pulse Ox 05/27/25 16:24 97.9 F 54 L 16 183/78 H 96 05/27/25 15:45 97.2 F L 52 L 18 194/68 H 100 05/27/25 15:29 05/27/25 15:15 53 L 18 176/78 H 98 05/27/25 14:45 97.5 F L 51 L 18 168/75 H 93 05/27/25 14:30 51 L 14 172/70 H 97 05/27/25 14:00 55 L 16 170/74 H 92 05/27/25 13:45 97.5 F L 57 L 18 173/78 H 93 05/27/25 13:30 61 14 175/72 H 96 05/27/25 13:15 59 L 12 160/79 H 94 05/27/25 13:00 59 L 12 165/75 H 93 05/27/25 12:55 57 L 14 178/75 H 96 05/27/25 12:45 60 16 182/82 H 100 05/27/25 12:35 61 16 170/77 H 98 05/27/25 12:28 96.8 F L 59 L 16 178/79 H 98 05/27/25 06:15 97.7 F 60 20 194/80 H 97 O2 Del Method O2 Flow Rate 05/27/25 16:24 Room Air 05/27/25 15:45 Room Air 05/27/25 15:29 Nasal Cannula 2 05/27/25 15:15 Nasal Cannula 3 05/27/25 14:45 Nasal Cannula 2 05/27/25 14:30 Room Air 05/27/25 14:00 Room Air 05/27/25 13:45 Room Air 05/27/25 13:30 Room Air 05/27/25 13:15 Room Air 05/27/25 13:00 Room Air 05/27/25 12:55 Room Air 05/27/25 12:45 Oxymask 3 05/27/25 12:35 Oxymask 3 05/27/25 12:28 Oxymask 6 05/27/25 06:15 Room Air PG Care Time/CCT Total # of Minutes Spent Total Time Spent with Patient: Total time spent is greater than 50% in coordination of care (as documented) at patient's floor/unit and/or counseling patient: Coding Level of Care Code 81664 IN/OBS CONSULT LVL 3,45M Diagnoses Degenerative thoracic spinal stenosis M48.04 Primary hypertension I10 Hypertension type: primary hypertension Chronic obstructive pulmonary disease J44.9 Prediabetes R73.03 (2) Hypertension Hypertension type: primary hypertension Qualified Code(s): I10 - Essential (primary) hypertension
[2025-05-27] MEDS: DOCUSATE SODIUM/SENNA 50/8.6MG TAB PO SCH (20:26)
[2025-05-27] MEDS: POTASSIUM CHLORIDE CRTAB 20 MEQ TABCR PO SCH (20:26)
[2025-05-27] MEDS: ACETAMINOPHEN 500 MG TAB PO PRN (20:26)
[2025-05-27] MEDS: TRIAMCINOLONE ACET 0.1% CR 15 GM TUBE TOP SCH (20:27)
[2025-05-27] MEDS: LOSARTAN POTASSIUM 50 MG TAB PO SCH (20:45)
[2025-05-28] MEDS: POLYETHYLENE (MIRALAX) 17 GM PACK PO SCH (05:06)
--- NOTE | 2025-05-28 07:24 | Hospitalist Progress Note ---
Date of Service May 28, 2025 Assessment & Plan Admission and Anticipated Discharge Date Admission Date: May 27, 2025 Results & Data Results & Data Vital Signs (Past 12 Hours) Vital Signs Temp Pulse Resp BP Pulse Ox O2 Del Method 05/28/25 03:09 36.4 C L 56 L 14 139/62 95 Room Air 05/27/25 23:14 36.5 C 53 L 14 143/57 H 96 Room Air 05/27/25 20:29 55 L 16 183/92 H PG Care Time/CCT Total # of Minutes Spent Total Time Spent with Patient: Total time spent is greater than 50% in coordination of care (as documented) at patient's floor/unit and/or counseling patient: Coding
[2025-05-28 08:12] LABS: Hematocrit (blood only) 36.2 % (37.0-47.0); Hemoglobin 12.2 g/dl (12.0-16.0); Mean Corpuscular Hemoglobin 31.4 pg (25.0-34.0); Mean Corpuscular Volume 93.3 fL (80.0-100.0); Platelet Count 228 K/uL (130-400); RDW Standard Deviation 47.2 fL (36.4-46.3); Red Blood Count 3.88 M/uL (4.20-5.40); White Blood Count 6.77 K/ul (4.8-10.8)
--- NOTE | 2025-05-28 08:15 | Orthopedic Progress Note ---
Date of Service May 28, 2025 Assessment & Plan (1) Spinal stenosis of lumbar region with neurogenic claudication: * Continue Current Treatment * Disposition: TBD, anticipate home tomorrow * Daily treatment: Physical Therapy/ Occupational Therapy per protocol * Weight bearing status: WBAT * Continue to monitor for ABLA * Pain control * DVT prophylaxis, SCDs * Office/hospital f/u 2 weeks for progress check and staple/suture removal * Plan for discharge today pending PT/OT clearance Subjective .Active Problems: S/p T10-T11 Decompression, T10-T11, T11-T12 Posterior Fusion Instrumentation POD 1 79 y/o female s/p T10-T11 Decompression, T10-T11, T11-T12 Posterior Fusion Instrumentation. Improved leg pain and strength. Doing well overall, pain managed and improved function. Denies fever/chills, chest pain/SOB, nausea/vomiting. Otherwise no complaints. Review of Systems All systems reviewed & are unremarkable except as noted in HPI & below. Physical Exam . * General: Alert and oriented, no acute distress * Constitutional: well-developed, well-nourished. * Respiratory: Normal respiratory effort, no distress * Gastrointestinal: No tenderness to palpation, no rigidity or guarding. * Skin: No rash or lesion. * Neurologic: Grossly normal * Musculoskeletal: Surgical dressing CDI. Lumbar spine region without obvious deformity or overlying skin changes. Minimal tenderness of surgical region, otherwise no tenderness b/l buttock or LE. Lumbar flexion/extension and rotation ROM with minimal pain. AROM b/l hip flexion, knee flexion/extension, ankle flexion/extension intact. Sensation intact plantar/dorsal foot. Brisk capillary refill. Results & Data Results & Data Laboratory Results . Diagnostic Findings . PG Care Time/CCT Total # of Minutes Spent Total Time Spent with Patient: Total time spent is greater than 50% in coordination of care (as documented) at patient's floor/unit and/or counseling patient: Coding Level of Care Code 19807 Post Operative Follow-Up Diagnoses Spinal stenosis of lumbar region with neurogenic claudication M48.062
[2025-05-28 08:34] LABS: Anion Gap 8.0 (3-11); Blood Urea Nitrogen 12.0 mg/dl (6-23); Calcium 8.3 mg/dl (8.6-10.3); Carbon Dioxide 25.0 mmol/L (21-32); Chloride 97.0 mmol/L (98-107); Creatinine Clr Calc Pharmacy 72.6 ml/min; Glucose 100.0 mg/dl (70-99(Fasting)); Potassium 3.8 mmol/L (3.5-5.1); Sodium 130.0 mmol/L (136-145)
[2025-05-28] MEDS: ACETAMINOPHEN 500 MG TAB PO SCH (08:52)
[2025-05-28] MEDS: BUDESONIDE EC 3 MG CAP PO SCH (08:52)
[2025-05-28] MEDS: hydroCHLOROthiazide 25 MG TAB PO SCH (08:53)
[2025-05-28] MEDS: UMECLIDINIUM/VILANTEROL 62.5/25MCG 7 PUFFS/INHALER INH SCH (08:56)
--- NOTE | 2025-05-28 09:02 | Fluoroscopy Report ---
FL thoracic spine 2V CLINICAL HISTORY: T10-T12 FUSION COMPARISON STUDY: Lumbar spine radiographs 01/02/2025 FLUOROSCOPY TIME: 69.0 seconds FLUOROSCOPY IMAGES: 5 EXPOSURE DOSE: 14.22 mGy FINDINGS: Posterior interbody lucia and screw fusion redemonstrated at L4-L5. Linear wire-like structur es project anterior to the spine. Retractors are noted posterior to the T10-T12 levels. T11 compressi on fracture redemonstrated. Status post placement of posterior interbody lucia and screw fusion at T10- T12. The hardware appears intact. IMPRESSION: Fluoroscopic assistance as above. ACT 112: Negative or not required by law. Electronically signed by: Dony Corado M.D. 05/28/2025 9:01 AM
--- NOTE | 2025-05-28 14:37 | Hospitalist Progress Note ---
Date of Service May 28, 2025 Assessment & Plan (1) Degenerative thoracic spinal stenosis: (2) Hypertension: (3) Chronic obstructive pulmonary disease: (4) Prediabetes: Plan Elizabeth is a 79F with a PMHx of HTN, COPD, hyponatremia, osteopenia, primary adenocarcinoma of the upper lung, HLD, and B12 deficiency. Hospital medicine consulted for medical management. #S/p back surgery - T10-T11 Decompression, T10-T11, T11-T12 Posterior Fusion Instrumentation with Dr. Canales 05/27 pain control / dvt proh/ abx/ dispo planning per primary team EBL 150 - hgb stable #HTN - labile pressures noted on last PCP note. BP 151/70s during my exam today Continue Coreg and olmesartan (or formulary equivalent) resume HCTZ #COPD Continue home inhaler, nebs PRN on room air post op #Prediabetes Last A1c 5.9 - managed with diet BSG controlled despite steroids in OR #hyponatremia - chronic Na 130 today which is her baseline #Lymphocytic colitis -Continue budesonide Thank you for allowing us to participate in the care of this patient, please reach out with any questions or concerns. Hospital Medicine will sign off. Admission and Anticipated Discharge Date Admission Date: May 27, 2025 Supervising Physician Co-Signing Physician Notes ARUN Supervision Note: I did not personally see or examine the patient today, but I verified all vargas points of ARUN Saunders's assessment and plan with the following exceptions/additions: None Subjective patient seen sitting up in the chair. reports pain is much improved , rates a 4. has passed gas, has not had a bowel movement yet tolerating diet without issue Review of Systems Review of Systems: All systems reviewed & are unremarkable except as noted in Subjective Physical Exam Physical Exam: General: NAD, VS as above, sitting up in the chair Resp: normal respiratory effort, lungs clear to auscultation CV: RRR, no murmur, Abd: normal bowel sounds, non tender, soft Extremities: Moves all extremities, able to wiggle toes bilaterally Neuro: A&O x3, Results & Data Results & Data Vital Signs (Past 12 Hours) Vital Signs Temp Pulse Resp BP Pulse Ox O2 Del Method 05/28/25 13:24 97.3 F L 60 17 100/53 L 94 Room Air 05/28/25 09:06 64 10/22/25 08:00 Room Air 05/28/25 07:59 97.3 F L 56 L 17 180/67 H 96 Room Air 05/28/25 03:09 97.5 F L 56 L 14 139/62 95 Room Air Laboratory Results cbc and chemistry reviewed PG Care Time/CCT Total # of Minutes Spent Total Time Spent with Patient: Total time spent is greater than 50% in coordination of care (as documented) at patient's floor/unit and/or counseling patient: Coding Level of Care Code 72494 SUB INP/OBS CARE 3/50MIN Diagnoses Degenerative thoracic spinal stenosis M48.04 Primary hypertension I10 Hypertension type: primary hypertension Chronic obstructive pulmonary disease J44.9 Prediabetes R73.03 (2) Hypertension Hypertension type: primary hypertension Qualified Code(s): I10 - Essential (primary) hypertension
[2025-05-28] MEDS: ONDANSETRON INJ 2 MG/ML 2 ML VIAL IV PRN (15:35)
--- NOTE | 2025-05-29 07:42 | Orthopedic Progress Note ---
Date of Service May 29, 2025 Assessment & Plan (1) Spinal stenosis of lumbar region with neurogenic claudication: * Continue Current Treatment * Disposition: Home * Appreciate hospital medicine eval, medically cleared for discharge * Daily treatment: Physical Therapy/ Occupational Therapy per protocol * Weight bearing status: WBAT * Continue to monitor for ABLA * Pain control * DVT prophylaxis, SCDs * Office/hospital f/u 2 weeks for progress check and staple/suture removal * Discharge home today Subjective Active Problems: S/p T10-T11 Decompression, T10-T11, T11-T12 Posterior Fusion Instrumentation POD 2 79 y/o female s/p T10-T11 Decompression, T10-T11, T11-T12 Posterior Fusion Instrumentation. Improved leg pain and strength. Doing well overall, pain managed and improved function. Denies fever/chills, chest pain/SOB, nausea/vomiting. Otherwise no complaints. Patient seen and examined, notes improvement in lower extremities, some incisional pain. Incision site unremarkable drainage serosanguineous, dressing changed. Impression/plan: Postoperative day 2 from posterior thoracic decompression and fusion. Will be able to discharge home later today if doing well with physical therapy and medical clearance. Review of Systems All systems reviewed & are unremarkable except as noted in HPI & below. Physical Exam * Musculoskeletal: Surgical dressing CDI. Lumbar spine region without obvious deformity or overlying skin changes. Minimal tenderness of surgical region, otherwise no tenderness b/l buttock or LE. Lumbar flexion/extension and rotation ROM with minimal pain. AROM b/l hip flexion, knee flexion/extension, ankle flexion/extension intact. Sensation intact plantar/dorsal foot. Brisk capillary refill. Results & Data Results & Data Laboratory Results . Diagnostic Findings . PG Care Time/CCT Total # of Minutes Spent Total Time Spent with Patient: Total time spent is greater than 50% in coordination of care (as documented) at patient's floor/unit and/or counseling patient: Coding Level of Care Code 32088 Post Operative Follow-Up Diagnoses Spinal stenosis of lumbar region with neurogenic claudication M48.062
[2025-05-29 07:53] VITALS: BP 122/49; PULSE 61; RESP 16; TEMP 98.8; O2SAT 95
--- NOTE | 2025-05-30 06:35 | Electrocardiogram Report ---
Test Reason : Blood Pressure : */* mmHG Vent. Rate : 54 BPM Atrial Rate : 54 BPM P-R Int : 262 ms QRS Dur : 86 ms QT Int : 438 ms P-R-T Axes : 52 53 54 degrees QTcB Int : 415 ms Sinus bradycardia with 1st degree A-V block Otherwise normal ECG When compared with ECG of 19-Sep-2024 13:22, No significant change was found Confirmed by Anuj Albarado ([id number]) on 05/30/2025 6:35:32 AM Referred By: Mario Alberto Canales Confirmed By: Anuj Albarado
== END 2025-05-29 14:25 | disposition home or self-care (01) | DRG 448 ==
LOC: ASU 05:51 → 3E 12:25

== ENCOUNTER 2025-07-09 10:01 | Inpatient (IN) ==
[2025-07-09 11:14] LABS: Hematocrit (blood only) 37.5 % (37.0-47.0); Hemoglobin 12.4 g/dL (12.0-16.0); Immature Granulocytes # (auto) 0.03 K/uL (0.01-0.20); Immature Granulocytes % (auto) 0.5 %; Mean Corpuscular Hemoglobin 31.6 pg (25.0-34.0); Mean Corpuscular Volume 95.7 fL (80.0-100.0); Platelet Count 240 K/uL (130-400); RDW Standard Deviation 49.1 fL (36.4-46.3); Red Blood Count 3.92 M/uL (4.20-5.40); White Blood Count 6.41 K/ul (4.8-10.8)
[2025-07-09 11:31] LABS: Alanine Aminotransferase 112.0 U/L (7-52); Albumin Globulin Ratio 1.6 (0.9-2); Albumin Level 3.9 gm/dl (3.4-5.0); Alkaline Phosphatase 156.0 U/L (34-104); Anion Gap 8.0 (3-11); Bilirubin,Total 0.6 mg/dl (0.2-1.0); Blood Urea Nitrogen 18.0 mg/dl (6-23); Calcium 8.8 mg/dl (8.6-10.3); Carbon Dioxide 23.0 mmol/L (21-32); Chloride 102.0 mmol/L (98-107); Creatinine Clr Calc Pharmacy 54.4 ml/min; Globulin 2.4 gm/dl (2.5-4.0); Glucose 140.0 mg/dl (70-99(Fasting)); Potassium 4.3 mmol/L (3.5-5.1); Sodium 133.0 mmol/L (136-145); Total Protein 6.3 gm/dl (6.0-8.3)
--- NOTE | 2025-07-09 11:34 | Electrocardiogram Report ---
Test Reason : Blood Pressure : */* mmHG Vent. Rate : 155 BPM Atrial Rate : * BPM P-R Int : * ms QRS Dur : 78 ms QT Int : 280 ms P-R-T Axes : * 95 -10 degrees QTcB Int : 449 ms Atrial fibrillation with rapid ventricular response Rightward axis Anteroseptal infarct , age undetermined Abnormal ECG When compared with ECG of 29-May-2025 10:10, Atrial fibrillation has replaced Sinus rhythm Vent. rate has increased by 101 bpm Anteroseptal infarct is now Present Nonspecific T wave abnormality now evident in Inferior leads Confirmed by Edward Bennett ([id number]) on 07/09/2025 11:34:34 AM Referred By: Confirmed By: Edward Bennett
[2025-07-09 11:37] LABS: Base Excess VBG -1.8 mEq/L; HCO3 VBG 24 mmol/L; Oxygen Saturation VBG < 60.0 %; PCO2 VBG 42 mmHg (38-50); PO2 VBG < 20 mmHg; pH VBG 7.36 (7.36-7.41)
--- NOTE | 2025-07-09 11:41 | Emergency Department Note ---
Impression & Plan Atrial fibrillation with rapid ventricular response, Acute exacerbation of CHF (congestive heart failure), Transaminitis, Pleural effusion ED Provider Note NAME: YUN TAO AGE: 79 SEX: F : 1945 ARRIVES VIA: Walk-In INFORMANT: Patient, ED PROVIDER(S): James Abarca DO CHIEF COMPLAINT: SOB HPI: This is a 79-year-old female with the PMHx of hypertension, hyperlipidemia, lung cancer, significant degenerative disc disease s/p back surgery that started in October with most recent operation secondary to complication of postoperative hematoma in June presenting to [facility] for further evaluation of shortness of breath. Patient is accompanied by her who provide additional history. Patient states that her shortness of breath started yesterday. She states this is occurring at rest. It worsens with any type of exertion. She states today she started with a nonproductive cough and congestion. Patient states that she feels that she just cannot catch her breath even while sitting in bed. She states that she is not on any blood thinners. They deny fever or chills. Denies chest pain or palpitations.They deny abdominal pain, nausea and vomiting. No urinary complaints. No recent changes in bowel movements. Patient denies recent changes in medications or OTC supplements. Patient offers no other complaints, today. ADDITIONAL HISTORY OBTAINED: Per HPI Chronic Medical/Social Conditions Affecting Care: Per HPI PAST MEDICAL HISTORY: See Below PAST SURGICAL HISTORY: See Below FAMILY HISTORY: See Below SOCIAL HISTORY: See Below HOME MEDICATIONS: See Below ALLERGIES: See Below VITALS: See Below PHYSICAL EXAMINATION: GENERAL: Sitting up in bed, alert, well appearing, well nourished, no distress, non-toxic EYE EXAM: normal conjunctiva. OROPHARYNX: no exudate, no erythema, lips, buccal mucosa, and tongue normal and mucous membranes are moist NECK: supple, no nuchal rigidity, no adenopathy, non-tender LUNGS: Clear to auscultation. Normal chest wall mechanics HEART: no murmurs, tachycardic rate, irregular rhythm ABDOMEN: abdomen soft, non-tender, no masses, no rebound or guarding. BACK: Back is symmetrical on inspection and there is no deformity, no midline tenderness, no CVA tenderness. SKIN: no rashes and no bruising UPPER EXTREMITIES: upper extremities are grossly normal. LOWER EXTREMITIES: No pitting edema. NEURO EXAM: Normal sensorium, GCS 15, normal speech, no gross weakness of arms, no gross weakness of legs. MEDICAL DECISION MAKING: Differential diagnoses includes but not limited to ACS, unstable angina, dysrhythmia, PNA, hypervolemia/pulmonary edema, CHF exacerbation, COPD exacerbation, PE, pneumothorax, pericardial effusion, cardiac tamponade, anxiety/psychogenic, viral URI In summary, this is a 79 year old female who presented with SOB. Differential as above. Nursing notes and pertinent past medical records reviewed. Vital signs reviewed and the patient is tachycardic but otherwise afebrile and HDS. History and presentation revealed recent back surgery now with acute dyspnea. Physical examination revealed as above. As a result of my initial evaluation, IV access was established and the patient was placed on CCRM. Therapeutics ordered include close observation. There could be many different sources of the patient's dyspnea. Patient relatively high risk for pulmonary embolism as she is not anticoagulated and recently in the postoperative period with significant tachycardia. Will proceed with CT PE study following a chest x-ray. Diagnostics interpreted by me include EKG and cardiac monitoring as listed below: -Cardiac Monitoring: An order was placed for continuous cardiac monitoring. The monitor shows a rate of 70-170 with irregular rhythm. -ECG: Atrial fibrillation with RVR at a rate of [address] segment changes to suggest STEMI. Intervals are otherwise within normal limits. -Repeat ECG: Atrial fibrillation with RVR at a rate of [address] segment changes to suggest STEMI. Intervals otherwise within normal limits -Repeat ECG: Atrial fibrillation with RVR at a rate of [address] segment changes to suggest STEMI. Intervals are otherwise within normal limits. Patient completed laboratory studies and imaging. Results independently interpreted by me are no leukocytosis or anemia. No significant kidney dysfunction. Minimal hyponatremia. Patient does have no significant elevation in troponin but an elevated BNP. Transaminitis noted. Suspect this is likely from congestion in the setting of mild heart failure. The patient was managed with IV fluid resuscitation initially. Did independently interpret the patient's chest x-ray which showed no evidence of pneumonia or pneumothorax but she does have a right-sided pleural effusion. CT PE study was independently interpreted by me as negative for saddle pulmonary embolism. She again has bilateral pleural effusions greater on the right with lung collapse bilaterally. No evidence of pneumonia. I do feel the patient's symptoms are largely related to her new onset atrial fibrillation at this time. Will plan for rate control with a bolus of Cardizem. . Ultimately, the decision was made to admit the patient for new onset atrial fibrillation with mild heart failure exacerbation. Patient's CHADSVASc is high and she will require anticoagulation. I discussed the case with the hospitalist service via telephone/TigerText and they are agreeable to admit the patient to their services by Dr. Askew. Based on the above, including the patient's age, coexisting illnesses, labs, imaging, and exam findings the decision to treat as an inpatient. I discussed the patient with the hospitalist team who recommended admission to their services. They received the medications, treatments, interventions indicated above and their condition remained guarded. I discussed my findings with the patient and their family and they understand and agree with the treatment plan. All patient / family questions were answered to their satisfaction. Consults/Care Managements Discussions: Per [facility] ER treatment provided: See above Procedures:none Critical Care: I have personally spent 40 minutes of critical care time in direct management of this patient. This includes bedside care, interpretation of diagnostic studies, and testing, discussion with consultants, patient, and family members, and other require inpatient management activities. This 40 minutes is in excess of all separately billable procedures. The chart was completed utilizing [employer] Speech voice recognition software. Grammatical errors, random word insertions, pronoun errors, and incomplete sentences are an occasional consequence of this system due to software limitations, ambient noise, and hardware issues. Any formal questions or concerns about the content, text, or information contained within the body of this dictation should be directly addressed to the physician for clarification. Past Med/Surg History Problem List (Updated 07/09/25 @ 20:22 by James Abarca DO) Pleural effusion (Acute) Transaminitis (Acute) Acute exacerbation of CHF (congestive heart failure) (Acute) Atrial fibrillation with rapid ventricular response (Acute) (HFpEF) heart failure with preserved ejection fraction Paroxysmal atrial fibrillation Post-operative complication Hypertension (Acute) Hyponatremia (Acute) Left leg weakness (Acute) Thoracic stenosis Status post thoracic spinal fusion Degenerative thoracic spinal stenosis Osteoporosis Facet arthropathy, lumbosacral Lumbosacral spondylosis Spinal stenosis of lumbar region with neurogenic claudication Lumbar stenosis Hyperglycemia Vitamin B12 deficiency Bilateral primary osteoarthritis of knee Severe chronic obstructive pulmonary disease Primary adenocarcinoma of upper lobe of left lung Hyperlipidemia Glaucoma Hypertension Medical History Spinal stenosis Glaucoma per medical record Degenerative disc disease History of COVID- ~2022: mild symptoms, resolved Chronic obstructive pulmonary disease Osteoarthritis Degenerative spondylolisthesis Prediabetes 05/13/25: A1C 5.9% Patient denies diagnosis Osteoporosis IBS (irritable bowel syndrome) Compression fracture of thoracic spine, non-traumatic History of colon polyps Hyponatremia Chronic Primary lung adenocarcinoma Dx 2020, s/p surgery + chemo Osteopenia Hiatal hernia no issues GERD (gastroesophageal reflux disease) Per records, pt denies HTN (hypertension) Eczema Flares during winter Hearing loss B/L hearing aids Surgical History History of lumbar surgery L3-L5 Laminectomy and fusion: Grade view 1, [place]#2, ETT 7, atraumatic, [facility] (10/07/24) History of total knee replacement right History of lung biopsy History of lung surgery Left Robotic Video Assisted Thoracoscopy with Left Upper Wedge Resection and Mediastinal Lymphadenectomy (11/14/19) History of cataract surgery right/left H/O esophagogastroduodenoscopy History of colonoscopy Family History Father , 87yo Type 2 diabetes mellitus Myocardial infarction Mother , 49yo Cerebral aneurysm Sister No problems noted. Son No problems noted. Daughter No problems noted. Other No family history of adverse response to anesthesia Denies family history of Colon cancer Ovarian cancer Prostate cancer Crohn's disease Social History Smoking Status: Former smoker Tobacco Type: Cigarettes Age Started Using Tobacco: 20; Age Quit Using Tobacco: 73; packs per day: 1; Second Hand Exposure: No; Do You Dip or Chew Tobacco: No; Hx Alcohol Use: Yes Alcohol type: beer, wine and hard liquor Alcohol Intake Frequency: 4 or More x per/Week Hx Substance Use: No Preferred Language: Bulgarian Communication Ability: Effective Visual Impairment: No Limitations Hearing Ability: Use of Hearing Aid Mirror Specialist Required: No Beliefs That Will Affect Care: None marital status: Current Living Situation: Spouse Current Living Situation Comment: lives with at [facility]/independent living current occupational status: retired 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 ) during the past year weight has: remained stable Dental Care, Regularly: Yes Physical Activity Frequency: 3-4 Times per Week Seatbelt Use: always Sunscreen Use: Yes Assistive Devices: Glasses, Hearing Aid - Bilateral and Walker Allergies Allergies Allergy/AdvReac Type Severity Reaction Status Date / Time nickel Allergy Mild Rash Verified 07/08/25 14:05 adhesive tape Allergy Skin Verified 07/08/25 14:05 peeling codeine AdvReac Intermediate Nausea Verified 07/08/25 14:05 meloxicam [From Mobic] AdvReac Intermediate Diarrhea Verified 07/08/25 14:05 oxycodone AdvReac Intermediate Nausea Verified 07/08/25 14:05 azithromycin AdvReac Mild Diarrhea Verified 07/08/25 14:05 lactose AdvReac Mild Diarrhea Verified 07/08/25 14:05 Home Meds Home Medications Medication Instructions Recorded Confirmed calcium 600 mg (as 1 tab PO BID 03/12/19 07/09/25 carbonate)-vitamin D3 5 mcg (200 unit) tablet melatonin 5 mg capsule 5 - 10 mg PO DAILY PRN Sleep 11/23/22 07/09/25 budesonide 3 mg 3 mg PO QAM 09/05/24 07/09/25 capsule,delayed,extended release umeclidinium 62.5 mcg-vilanterol 1 inh inhalation QAM 09/05/24 07/09/25 25 mcg/actuation powdr for inhalation (Anoro Ellipta) simethicone 125 mg capsule 125 mg PO DAILY PRN gas/bloating 09/27/24 07/09/25 cholecalciferol (vitamin D3) 50 50 mcg PO QAM 05/05/25 07/09/25 mcg (2,000 unit) capsule (Vitamin D3) cyanocobalamin (vitamin B-12) 1,000 mcg PO QAM 05/05/25 07/09/25 1,000 mcg tablet (Vitamin B-12) denosumab 60 mg/mL subcutaneous 60 mg subcut UD 09/29/25 12/03/25 syringe (Prolia) olmesartan 20 mg tablet 10 mg PO HS 05/05/25 07/09/25 triamcinolone acetonide 0.1 % 1 applic topical BID Skin 05/05/25 07/09/25 topical cream Irritation acetaminophen 500 mg tablet 500 mg PO DAILY PRN Pain 07/02/25 07/09/25 (Tylenol Extra Strength) amlodipine 2.5 mg tablet 2.5 mg PO DAILY 07/02/25 07/09/25 carvedilol 25 mg tablet 12.5 mg PO BID 07/02/25 07/09/25 Previous Rx's Medication Instructions Recorded albuterol sulfate 90 mcg/actuation 2 puff inhalation Q6H PRN 04/20/24 aerosol inhaler Shortness Of Breath Or Wheezing #18 grams potassium chloride 20 mEq 20 meq PO DAILY #90 tabs 07/08/25 tablet,extended release Results & Data (ED) Vital Signs Vital Signs - 24 hr 07/09/25 10:02 07/09/25 10:28 07/09/25 10:28 Pulse Rate 79 Pulse Rate [Apical] Pulse Rate from SpO2 Sensor Pulse Rhythm [Apical] Pulse Strength [Apical] Respiratory Rate 14 Respiratory Effort / Characteristics Respiratory Depth Normal Respiratory Pattern Regular Blood Pressure 114/75 Blood Pressure [Left Arm] Blood Pressure Mean 88 Blood Pressure Mean [Left Arm] Blood Pressure Position [Left Arm] Pulse Oximetry 96 95 Oxygen Delivery Method Room Air Room Air Room Air Sepsis New/Unexplained Change in Mental Status No Sepsis Action Taken by Nursing No Action Required 07/09/25 10:29 07/09/25 10:39 07/09/25 11:00 Pulse Rate 146 H 155 H Pulse Rate [Apical] 154 H Pulse Rate from SpO2 Sensor 80 Pulse Rhythm [Apical] Pulse Strength [Apical] Respiratory Rate 18 19 Respiratory Effort / Characteristics Non-Labored Respiratory Depth Normal Respiratory Pattern Blood Pressure 153/91 H Blood Pressure [Left Arm] 137/88 Blood Pressure Mean 111 Blood Pressure Mean [Left Arm] 104 Blood Pressure Position [Left Arm] Pulse Oximetry 94 94 Oxygen Delivery Method Room Air Room Air Sepsis New/Unexplained Change in Mental Status Sepsis Action Taken by Nursing 07/09/25 11:02 07/09/25 11:02 07/09/25 11:30 Pulse Rate 168 H Pulse Rate [Apical] Pulse Rate from SpO2 Sensor 77 Pulse Rhythm [Apical] Pulse Strength [Apical] Respiratory Rate 19 Respiratory Effort / Characteristics Respiratory Depth Respiratory Pattern Blood Pressure 110/63 Blood Pressure [Left Arm] Blood Pressure Mean 78 Blood Pressure Mean [Left Arm] Blood Pressure Position [Left Arm] Pulse Oximetry 96 97 Oxygen Delivery Method Room Air Room Air Room Air Sepsis New/Unexplained Change in Mental Status Sepsis Action Taken by Nursing 07/09/25 12:00 07/09/25 12:20 07/09/25 13:00 Pulse Rate 153 H 108 H Pulse Rate [Apical] 85 Pulse Rate from SpO2 Sensor 99 H 88 Pulse Rhythm [Apical] Regular Pulse Strength [Apical] Normal Respiratory Rate 20 19 19 Respiratory Effort / Characteristics Non-Labored Respiratory Depth Normal Respiratory Pattern Regular Blood Pressure 143/72 H 151/94 H Blood Pressure [Left Arm] 143/72 H Blood Pressure Mean 95 129 Blood Pressure Mean [Left Arm] 95 Blood Pressure Position [Left Arm] Sitting Pulse Oximetry 94 94 93 Oxygen Delivery Method Room Air Room Air Room Air Sepsis New/Unexplained Change in Mental Status Sepsis Action Taken by Nursing 07/09/25 13:30 Pulse Rate 114 H Pulse Rate [Apical] Pulse Rate from SpO2 Sensor Pulse Rhythm [Apical] Pulse Strength [Apical] Respiratory Rate 22 Respiratory Effort / Characteristics Respiratory Depth Respiratory Pattern Blood Pressure 164/94 H Blood Pressure [Left Arm] Blood Pressure Mean 101 Blood Pressure Mean [Left Arm] Blood Pressure Position [Left Arm] Pulse Oximetry 92 Oxygen Delivery Method Room Air Sepsis New/Unexplained Change in Mental Status Sepsis Action Taken by Nursing Laboratory Data 07/09/25 10:23 07/09/25 10:23 Lab Results 07/09/25 07/09/25 Range/Units 10:23 11:16 WBC 6.41 (4.8-10.8) K/ul RBC 3.92 L (4.20-5.40) M/uL Hgb 12.4 (12.0-16.0) g/dL Hct 37.5 (37.0-47.0) % MCV 95.7 (80.0-100.0) fL MCH 31.6 (25.0-34.0) pg MCHC 33.1 (32.0-36.0) g/dL RDW Std Deviation 49.1 H (36.4-46.3) fL RDW Coeff of Jung 13.9 (11.5-14.5) % Plt Count 240 (130-400) K/uL MPV 11.3 (9.4-12.4) fL Immature Gran % (Auto) 0.5 % Neut % (Auto) 62.5 % Lymph % (Auto) 29.6 % [place] % (Auto) 5.5 % Eos % (Auto) 1.4 % Baso % (Auto) 0.5 % Neut # (Auto) 4.01 (1.40-6.50) K/uL Lymph # (Auto) 1.90 (1.20-3.40) K/uL [place] # (Auto) 0.35 (0.11-0.59) K/uL Eos # (Auto) 0.09 (0.00-0.50) K/uL Baso # (Auto) 0.03 (0.00-0.20) K/uL Immature Gran # (Auto) 0.03 (0.01-0.20) K/uL VBG pH 7.36 (7.36-7.41) VBG pCO2 42 (38-50) mmHg VBG pO2 < 20 mmHg VBG HCO3 24 mmol/L VBG O2 Saturation < 60.0 % VBG Base Excess -1.8 mEq/L Sodium 133 L (136-145) mmol/L Potassium 4.3 (3.5-5.1) mmol/L Chloride 102 (98-107) mmol/L Carbon Dioxide 23 (21-32) mmol/L Anion Gap 8 (3-11) BUN 18 (6-23) mg/dl Creatinine 0.78 (0.6-1.2) mg/dl Est Cr Clr Drug Dosing 54.4 ml/min eGFR 78.18 BUN/Creatinine Ratio 23.1 H (10-20) Glucose 140 H (70-99(Fasting)) mg/dl Lactate 1.0 (0.4-2.0) mmol/L Calcium 8.8 (8.6-10.3) mg/dl Phosphorus 4.1 (2.5-4.9) mg/dl Magnesium 2.0 (1.7-2.4) mg/dl Total Bilirubin 0.6 (0.2-1.0) mg/dl AST 108 H (13-39) U/L ALT 112 H (7-52) U/L Alkaline Phosphatase 156 H (34-104) U/L Troponin I High Sens 10.4 (0-14) pg/ml B-Natriuretic Peptide 621 H (0-100) pg/ml Total Protein 6.3 (6.0-8.3) gm/dl Albumin 3.9 (3.4-5.0) gm/dl Globulin 2.4 L (2.5-4.0) gm/dl Albumin/Globulin Ratio 1.6 (0.9-2) TSH 4.737 H (0.300-4.500) uIu/ml Free T4 0.96 (0.61-1.60) ng/dl Adenovirus (PCR) Not Detected (NotDetected) B. pertussis DNA (PCR) Not Detected (NotDetected) B.parapertussis DNA PCR Not Detected (NotDetected) C. pneumoniae DNA (PCR) Not Detected (NotDetected) Coronavirus OC43 (PCR) Not Detected (NotDetected) Coronavirus HKU1 (PCR) Not Detected (NotDetected) Coronavirus 229E (PCR) Not Detected (NotDetected) SARS-CoV-2 (PCR) Not Detected (NotDetected) Coronavirus NL63 (PCR) Not Detected (NotDetected) Human Metapneumovir PCR Not Detected (NotDetected) Influenza Type A (PCR) Not Detected (NotDetected) Influenza Type B (PCR) Not Detected (NotDetected) M. pneumoniae (PCR) Not Detected (NotDetected) Parainfluenza 1 (PCR) Not Detected (NotDetected) Parainfluenza 2 (PCR) Not Detected (NotDetected) Parainfluenza 3 (PCR) Not Detected (NotDetected) Parainfluenza 4 (PCR) Not Detected (NotDetected) RSV (PCR) Not Detected (NotDetected) Entero/Rhino (PCR) Not Detected (NotDetected) Administered Medications Furosemide (Furosemide 40 Mg/4 Ml Vial) 40 mg IV BID17 [facility] Stop: 08/08/25 16:59 Last Admin: 07/09/25 17:28 Dose: 40 mg Documented By: SEBASTIAN Diltiazem HCl 125 mg/ Dextrose 125 mls @ 5 mls/hr IV .Q24H [facility]; Protocol Stop: 08/08/25 12:44 Last Titration: 07/09/25 19:12 Dose: 5 mg/hr, 5 mls/hr Documented By: SEBASTIAN Co-signed By: SAE Admin: 07/09/25 13:20 Dose: 5 mg/hr, 5 mls/hr Documented By: FRANSICO Co-signed By: ERVIN Heparin Sodium/Dextrose (Heparin 44759 Unit/500 Ml D5w) 25,000 units in 500 mls @ 21 mls/hr IV .[id number] [facility]; Protocol Stop: 08/08/25 13:59 Last Titration: 07/09/25 19:12 Dose: 1,050 units/hr, 21 mls/hr Documented By: SEBASTIAN Co-signed By: SAE Admin: 07/09/25 14:23 Dose: 1,050 units/hr, 21 mls/hr Documented By: FRANSICO Co-signed By: JAVAN Discontinued Medications Diltiazem HCl (Diltiazem Hcl 5 Mg/Ml 5 Ml Vial) 15 mg IV NOW STA Stop: 07/09/25 12:05 Last Admin: 07/09/25 12:12 Dose: 15 mg Documented By: FRANSICO Co-signed By: JAVAN Furosemide (Furosemide 40 Mg/4 Ml Vial) 40 mg IV ONE ONE Stop: 07/09/25 12:40 Last Admin: 07/09/25 13:12 Dose: 40 mg Documented By: FRANSICO Heparin Sodium (Porcine) (Heparin Sod (Porcine) 1000 Unit/Ml) 5,000 units IV NOW ONE Stop: 07/09/25 13:59 Last Admin: 07/09/25 14:23 Dose: 5,000 units Documented By: FRANSICO Co-signed By: JAVAN Heparin Sodium/Dextrose (Heparin Iv Adult Wt-Based Standard W/ Initial Bolus Protocol) 1 each IV NOW STA; Protocol Stop: 07/09/25 13:51 Last Admin: 07/09/25 14:23 Dose: Not Given Documented By: FRANSICO Magnesium Sulfate/Dextrose (Magnesium Sulfate / D5w) 1 gm in 100 mls @ 100 mls/hr IV NOW STA Stop: 07/09/25 13:39 Last Infusion: 07/09/25 14:15 Dose: Infused Documented By: Admin: 07/09/25 13:12 Dose: 100 mls/hr Documented By: FRANSICO Ioversol (Optiray 320 125ml) 119 ml IV ONCE ONE Stop: 07/09/25 11:49 Last Admin: 07/09/25 11:49 Dose: 119 ml Documented By: FRANCISCO Miscellaneous (Stat Iv Infusion Titration Per Protocol) 1 each N/A NOW STA Stop: 07/09/25 12:40 Last Admin: 07/09/25 13:12 Dose: Not Given Documented By: FRANSICO Imaging Data Radiologist's Impression: Chest X-Ray 07/09/25 11:08 XR chest 1V portable CLINICAL HISTORY: Evaluate for pneumonia. COMPARISON STUDY: Chest CT October 04, 2024. Chest CT performed earlier today. FINDINGS: Postoperative findings within lower thoracic spine are incidentally noted. There are small bilateral pleural effusions. There is no pneumothorax. Cardiomegaly is again noted. Mild bibasilar opacities favor atelectasis. There is mild interstitial thickening. No consolidation to suggest pneumonia. IMPRESSION: 1. Cardiomegaly with mild interstitial pulmonary edema and small bilateral pleural effusions. 2. Bibasilar opacities which favor atelectasis. ACT 112: Negative or not required by law. Electronically signed by: Corwin Leslie M.D. 07/09/2025 12:14 PM Chest CTA 07/09/25 11:41 CT angio chest PE protocol CT DOSE: 383.66 mGy.cm HISTORY: 79 years-old Female with PE. Acute shortness of breath TECHNIQUE: Multiple CTA images of the chest were obtained after the intravenous administration of 119 ml Optiray. Coronal and sagittal MIPS were obtained from the axial data set and were submitted for review. All measurements were obtained according to NASCET criteria. A dose lowering technique was utilized adhering to the principles of ALARA. COMPARISON: Thoracolumbar radiographs 06/25/2025, chest CT 10/04/2024 FINDINGS: CTA: Unchanged cardiomegaly with small pericardial effusion. No thoracic aortic aneurysm. Dilation of the pulmonary arterial tree is again noted within the main pulmonary artery measuring 3.6 cm transversely. No pulmonary emboli are identified. CT CHEST: Unremarkable thyroid. Mildly enlarged subcarinal lymph node is likely physiologic. Small left with [id number] right pleural effusions. No pneumothorax. Pulmonary emphysema with interlobular septal thickening. Prior left upper lobe wedge resection. Mild dependent bibasilar atelectasis. Linear stable nodular foci of the right upper lobe are redemonstrated measuring 11 mm on image 181, 9 mm on image 170 and 7 mm on image 168. Stable 4 mm solid nodule in the right lower lobe on image 89 series 4. Unchanged 5 mm groundglass nodule right lower lobe on image 95. Central airways are patent. No acute upper abdominal abnormality. Degenerative and postoperative changes of the spine with unchanged appearance of the thoracic compression deformities. IMPRESSION: 1. Evidence of pulmonary arterial hypertension without pulmonary emboli identified. 2. Cardiomegaly with interstitial pulmonary edema, small left and [id number] right pleural effusions. 3. Stable pericardial effusion. 4. Pulmonary emphysema. 5. Stable nodular foci of the right lung. ACT 112: Negative or not required by law. The above report was generated using voice recognition software. It may contain grammatical, syntax or spelling errors. Electronically signed by: Dnoy Corado M.D. 07/09/2025 12:32 PM Discharge Plan Visit Data Chief Complaint: Shortness of Breath/Dyspnea Stated Complaint: SOB, DIZZINESS, LIGHT HEADED ED Provider: James Abarca Discharge Problem: Atrial fibrillation with rapid ventricular response, Acute exacerbation of CHF (congestive heart failure), Transaminitis, Pleural effusion Patient Disposition: Admitted As Inpatient Condition: Serious Discharge Instructions Interventions: ED Discharge Assessment Last Done: 07/09/25 15:21
[2025-07-09] MEDS: OPTIRAY 320 125ml IV ONE (11:49)
--- NOTE | 2025-07-09 12:15 | XRay Report ---
XR chest 1V portable CLINICAL HISTORY: Evaluate for pneumonia. COMPARISON STUDY: Chest CT October 04, 2024. Chest CT performed earlier today. FINDINGS: Postoperative findings within lower thoracic spine are incidentally noted. There are small bilateral pleural effusions. There is no pneumothorax. Cardiomegaly is again noted. Mild bibasilar op acities favor atelectasis. There is mild interstitial thickening. No consolidation to suggest pneumon ia. IMPRESSION: 1. Cardiomegaly with mild interstitial pulmonary edema and small bilateral pleural effusions. 2. Bibasilar opacities which favor atelectasis. ACT 112: Negative or not required by law. Electronically signed by: Corwin Leslie M.D. 07/09/2025 12:14 PM
--- NOTE | 2025-07-09 12:33 | CT Scan Report ---
CT angio chest PE protocol CT DOSE: 383.66 mGy.cm HISTORY: 79 years-old Female with PE. Acute shortness of breath TECHNIQUE: Multiple CTA images of the chest were obtained after the intravenous administration of 119 ml Optiray. Coronal and sagittal MIPS were obtained from the axial data set and were submitted for review. All measurements were obtained according to NASCET criteria. A dose lowering technique was u tilized adhering to the principles of ALARA. COMPARISON: Thoracolumbar radiographs 06/25/2025, chest CT 10/04/2024 FINDINGS: CTA: Unchanged cardiomegaly with small pericardial effusion. No thoracic aortic aneurysm. Dilation of the pulmonary arterial tree is again noted within the main pulmonary artery measuring 3.6 cm transversely . No pulmonary emboli are identified. CT CHEST: Unremarkable thyroid. Mildly enlarged subcarinal lymph node is likely physiologic. Small left with sm [id number] right pleural effusions. No pneumothorax. Pulmonary emphysema with interlobular septa l thickening. Prior left upper lobe wedge resection. Mild dependent bibasilar atelectasis. Linear sta ble nodular foci of the right upper lobe are redemonstrated measuring 11 mm on image 181, 9 mm on aubrey ge 170 and 7 mm on image 168. Stable 4 mm solid nodule in the right lower lobe on image 89 series 4. Unchanged 5 mm groundglass nodule right lower lobe on image 95. Central airways are patent. No acute upper abdominal abnormality. Degenerative and postoperative changes of the spine with unchan ged appearance of the thoracic compression deformities. IMPRESSION: 1. Evidence of pulmonary arterial hypertension without pulmonary emboli identified. 2. Cardiomegaly with interstitial pulmonary edema, small left and [id number]-[id number] right pleural eff usions. 3. Stable pericardial effusion. 4. Pulmonary emphysema. 5. Stable nodular foci of the right lung. ACT 112: Negative or not required by law. The above report was generated using voice recognition software. It may contain grammatical, syntax o r spelling errors. Electronically signed by: Dony Corado M.D. 07/09/2025 12:32 PM
[2025-07-09 12:41] LABS: Magnesium 2.0 mg/dl (1.7-2.4)
--- NOTE | 2025-07-09 12:47 | Electrocardiogram Report ---
Test Reason : Blood Pressure : */* mmHG Vent. Rate : 143 BPM Atrial Rate : * BPM P-R Int : * ms QRS Dur : 76 ms QT Int : 292 ms P-R-T Axes : * 74 44 degrees QTcB Int : 450 ms Atrial fibrillation with rapid ventricular response Septal infarct (cited on or before 09-Jul-2025) Abnormal ECG When compared with ECG of 09-Jul-2025 10:19, Questionable change in initial forces of Anterior leads Nonspecific T wave abnormality no longer evident in Inferior leads Confirmed by Edward Bennett ([id number]) on 07/09/2025 12:47:16 PM Referred By: REFERRED SELF Confirmed By: Edward Bennett
[2025-07-09 12:48] LABS: Chlamydia pneumoniae PCR Not Detected (NotDetected); Coronavirus 229E PCR Not Detected (NotDetected); Coronavirus CoV-2 (COVID19)PCR Not Detected (NotDetected); Coronavirus HKU1 PCR Not Detected (NotDetected); Coronavirus NL63 PCR Not Detected (NotDetected); Coronavirus OC43PCR Not Detected (NotDetected); Human Metapneumovirus PCR Not Detected (NotDetected); Parainfluenza Virus 1 PCR Not Detected (NotDetected); Parainfluenza Virus 2 PCR Not Detected (NotDetected); Parainfluenza Virus 3 PCR Not Detected (NotDetected); Parainfluenza Virus 4 PCR Not Detected (NotDetected); Respiratory Syncytial VirusPCR Not Detected (NotDetected); Rhinovirus/Enterovirus PCR Not Detected (NotDetected)
[2025-07-09 12:57] LABS: Thyroid Stimulating Hormone 4.737 uIu/ml (0.300-4.500)
[2025-07-09] MEDS: MAGNESIUM SULFATE / D5W 1 GM/100 ML BAG IV STA (13:12)
[2025-07-09] MEDS: STAT IV Infusion **Titration per Protocol STA (13:12)
[2025-07-09] MEDS: FUROSEMIDE 40 MG/4 ML VIAL IV ONE (13:12)
--- NOTE | 2025-07-09 13:21 | History & Physical Report ---
Date of Service July 09, 2025 Assessment & Plan (1) Paroxysmal atrial fibrillation: (2) (HFpEF) heart failure with preserved ejection fraction: (3) Severe chronic obstructive pulmonary disease: (4) Hyponatremia: Plan This patient is a 79-year-old female with a history of HTN, COPD, hyponatremia, osteopenia, lung adenocarcinoma s/p wedge resection, HLD, B12 deficiency, lymphocytic colitis, prediabetes, and recent thoracic decompression and fusion with subsequent postoperative thoracic epidural hematoma with spinal cord compression requiring emergent drainage on 06/08, who presents to the ED with 1 day of shortness of breath, heart palpitations, and cough. She was seen at her PCP office the day before with normal vital signs and no symptoms at that time except feeling a little lightheaded. In the ED, she was found to be in new onset rapid atrial fibrillation with rates in the 150s. She was given a Cardizem bolus and started on a drip as well as given IV Lasix. She was found to have bilateral pleural effusions on chest x-ray and an elevated BNP. Her heart rates were improved to the 90s but she still felt short of breath. She will be admitted for new onset rapid atrial fibrillation and acute on chronic HFpEF. #Atrial fibrillation with RVR-this is new in onset. Her [id number] score is quite elevated at 6 due to her age, sex, CHF, HTN, and history of aortic plaque. Rates are uncontrolled likely leading to acute HFpEF. Responding to diltiazem - Admit to PCU for telemetry monitoring - Continue diltiazem drip and titrate as needed for rate control - Hold home amlodipine while on diltiazem - Check echo - Continue home carvedilol but may need to increase dose for improved rate control and hypertension - Consult cardiology - Start heparin drip, but likely will need DOAC-Will river check with case management - Follow CBC, BMP, magnesium and keep electrolytes replete #Acute HFpEF/HTN/HLD-with pleural effusions, elevated BNP, shortness of breath and cough. Likely secondary to rapid atrial fibrillation. BPs are quite elevated - Check echo but previously was with preserved EF - Improved blood pressure control-on diltiazem drip and a need to increase carvedilol versus add on oral diltiazem - Hold home amlodipine while on diltiazem - Continue ARB - Consider adding on SGLT2 inhibitor - Continue Lasix 40 mg IV twice daily - She is not on a statin but does have evidence of diffuse aortic plaque as well as vertebral artery stenosis on previous imaging-consider statin - Monitor for need for supplemental O2 and monitor chest imaging with pleural effusions #COPD/history of lung cancer-status post upper lung wedge resection for cancer and chemotherapy now in remission. No wheezing on examination - Continue albuterol as needed - Continue maintenance inhaler - Supplemental O2 to keep pulse ox greater than 90% #Hyponatremia-sodium low at 133 likely secondary to volume overload - Diuresing and follow BMP #Transaminitis-AST and ALT are elevated at 108 and 112 with elevated alkaline phosphatase at 156. Her AST and ALT were in the 50s 1 day prior on outpatient labs and this is new for her. She has no abdominal pain or tenderness. Suspect this is from hepatic congestion from heart failure - Diuresing - Follow LFTs #Recent thoracic spine surgery-no acute issues, no evidence of infection of the wound site on exam. Recently seen by her orthopedic spine surgeon and her previous neurologic deficits are improving-previously had left dropfoot and left lower extremity weakness - Follow-up with orthopedic spine surgery in 1 month as scheduled - PT/OT consults placed #Lymphocytic colitis-no acute issues - Continue home budesonide DVT prophylaxis-heparin drip Disposition-admit to PCU History of Present Illness Chief Complaint: Shortness of breath Primary Care Provider: Edward Harman MD This patient is a 79-year-old female with a history of HTN, COPD, hyponatremia, osteopenia, lung adenocarcinoma s/p wedge resection, HLD, B12 deficiency, lymphocytic colitis, prediabetes, and recent thoracic decompression and fusion with subsequent postoperative thoracic epidural hematoma with spinal cord compression requiring emergent drainage on 06/08, who presents to the ED with 1 day of shortness of breath, heart palpitations, and cough. She was seen at her PCP office the day before with normal vital signs and no symptoms at that time except feeling a little lightheaded. In the ED, she was found to be in new onset rapid atrial fibrillation with rates in the 150s. She was given a Cardizem bolus and started on a drip as well as given IV Lasix. She was found to have bilateral pleural effusions on chest x-ray and an elevated BNP. Her he art rates were improved to the 90s but she still felt short of breath. She will be admitted for new onset rapid atrial fibrillation and acute on chronic HFpEF. Allergies Allergy/AdvReac Type Severity Reaction Status Date / Time nickel Allergy Mild Rash Verified 07/08/25 14:05 adhesive tape Allergy Skin Verified 07/08/25 14:05 peeling codeine AdvReac Intermediate Nausea Verified 07/08/25 14:05 meloxicam [From Mobic] AdvReac Intermediate Diarrhea Verified 07/08/25 14:05 oxycodone AdvReac Intermediate Nausea Verified 07/08/25 14:05 azithromycin AdvReac Mild Diarrhea Verified 07/08/25 14:05 lactose AdvReac Mild Diarrhea Verified 07/08/25 14:05 Home Medications Medication Instructions Recorded Confirmed Type calcium 600 mg (as 1 tab PO BID 03/12/19 07/09/25 History carbonate)-vitamin D3 5 mcg (200 unit) tablet melatonin 5 mg capsule 5 - 10 mg PO DAILY PRN Sleep 11/23/22 07/09/25 History albuterol sulfate 90 mcg/actuation 2 puff inhalation Q6H PRN 04/20/24 07/09/25 Rx aerosol inhaler Shortness Of Breath Or Wheezing #18 grams budesonide 3 mg 3 mg PO QAM 09/05/24 07/09/25 History capsule,delayed,extended release umeclidinium 62.5 mcg-vilanterol 1 inh inhalation QAM 09/05/24 07/09/25 History 25 mcg/actuation powdr for inhalation (Anoro Ellipta) simethicone 125 mg capsule 125 mg PO DAILY PRN gas/bloating 09/27/24 07/09/25 History cholecalciferol (vitamin D3) 50 50 mcg PO QAM 05/05/25 07/09/25 History mcg (2,000 unit) capsule (Vitamin D3) cyanocobalamin (vitamin B-12) 1,000 mcg PO QAM 05/05/25 07/09/25 History 1,000 mcg tablet (Vitamin B-12) denosumab 60 mg/mL subcutaneous 60 mg subcut UD 05/05/25 07/09/25 History syringe (Prolia) olmesartan 20 mg tablet 10 mg PO HS 05/05/25 07/09/25 History triamcinolone acetonide 0.1 % 1 applic topical BID Skin 05/05/25 07/09/25 History topical cream Irritation acetaminophen 500 mg tablet 500 mg PO DAILY PRN Pain 07/02/25 07/09/25 History (Tylenol Extra Strength) amlodipine 2.5 mg tablet 2.5 mg PO DAILY 07/02/25 07/09/25 History carvedilol 25 mg tablet 12.5 mg PO BID 07/02/25 07/09/25 History potassium chloride 20 mEq 20 meq PO DAILY #90 tabs 07/08/25 07/09/25 Rx tablet,extended release Past Med/Surg History Problem List (Updated 07/09/25 @ 13:31 by Alecia Askew MD) (HFpEF) heart failure with preserved ejection fraction Paroxysmal atrial fibrillation Post-operative complication Hypertension (Acute) Hyponatremia (Acute) Left leg weakness (Acute) Thoracic stenosis Status post thoracic spinal fusion Degenerative thoracic spinal stenosis Osteoporosis Facet arthropathy, lumbosacral Lumbosacral spondylosis Spinal stenosis of lumbar region with neurogenic claudication Lumbar stenosis Hyperglycemia Vitamin B12 deficiency Bilateral primary osteoarthritis of knee Severe chronic obstructive pulmonary disease Primary adenocarcinoma of upper lobe of left lung Hyperlipidemia Glaucoma Hypertension Medical History Spinal stenosis Glaucoma per medical record Degenerative disc disease History of COVID- ~2022: mild symptoms, resolved Chronic obstructive pulmonary disease Osteoarthritis Degenerative spondylolisthesis Prediabetes 05/13/25: A1C 5.9% Patient denies diagnosis Osteoporosis IBS (irritable bowel syndrome) Compression fracture of thoracic spine, non-traumatic History of colon polyps Hyponatremia Chronic Primary lung adenocarcinoma Dx 2020, s/p surgery + chemo Osteopenia Hiatal hernia no issues GERD (gastroesophageal reflux disease) Per records, pt denies HTN (hypertension) Eczema Flares during winter Hearing loss B/L hearing aids Surgical History History of lumbar surgery L3-L5 Laminectomy and fusion: Grade view 1, [place]#2, ETT 7, atraumatic, [facility] (10/07/24) History of total knee replacement right History of lung biopsy History of lung surgery Left Robotic Video Assisted Thoracoscopy with Left Upper Wedge Resection and Mediastinal Lymphadenectomy (11/14/19) History of cataract surgery right/left H/O esophagogastroduodenoscopy History of colonoscopy Family History Father , 87yo Type 2 diabetes mellitus Myocardial infarction Mother , 49yo Cerebral aneurysm Sister No problems noted. Son No problems noted. Daughter No problems noted. Other No family history of adverse response to anesthesia Denies family history of Colon cancer Ovarian cancer Prostate cancer Crohn's disease Social History Smoking Status: Former smoker Tobacco Type: Cigarettes Age Started Using Tobacco: 20; Age Quit Using Tobacco: 73; packs per day: 1; Second Hand Exposure: No; Do You Dip or Chew Tobacco: No; Hx Alcohol Use: Yes Alcohol type: beer, wine and hard liquor Alcohol Intake Frequency: 4 or More x per/Week Hx Substance Use: No Preferred Language: Croatian Communication Ability: Effective Visual Impairment: No Limitations Hearing Ability: Use of Hearing Aid 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 ) during the past year weight has: remained stable Dental Care, Regularly: Yes Physical Activity Frequency: 3-4 Times per Week Seatbelt Use: always Sunscreen Use: Yes Assistive Devices: Glasses, Hearing Aid - Bilateral and Walker Review of Systems Review of Systems: All systems reviewed & are unremarkable except as noted in HPI & below Physical Exam Constitutional: WD/WN, vitals as above Eyes: PERRL, conjunctivae normal, anicteric sclerae ENMT: external ear and nose normal, oropharynx normal Neck: trachea midline, no thyromegaly Respiratory: normal respiratory effort Auscultation: + diminished lung sounds (Bibasilar) and + crackles (Bibasilar); no rhonchi and no wheezes Cardiovascular: Rate/Rhythm: + tachycardic and + irregularly irregular Heart Sounds: no murmur Extremities: no edema Chest (Breasts): Chest: normal inspection of chest Gastrointestinal (Abdomen): normal bowel sounds, soft, nontender, no hepatosplenomegaly Musculoskeletal: Extremities: extremities normal to inspection; no cyanosis and no clubbing Skin: no rashes, warm and dry Neurologic: moves all extremities and awake; no focal motor deficits Psychiatric: A+Ox3, euthymic affect Lymphatic: no lymphedema Results & Data Results & Data Vital Signs (Past 12 Hours) Vital Signs Pulse Pulse Resp BP BP Pulse Ox O2 Del Method 07/09/25 12:20 85 19 143/72 H 94 Room Air 07/09/25 12:00 153 H 20 143/72 H 94 Room Air 07/09/25 11:30 168 H 19 110/63 97 Room Air 07/09/25 11:02 96 Room Air 07/09/25 11:02 Room Air 07/09/25 11:00 155 H 19 153/91 H 94 Room Air 07/09/25 10:39 146 H 07/09/25 10:29 154 H 18 137/88 94 Room Air 07/09/25 10:28 95 Room Air 07/09/25 10:28 Room Air 07/09/25 10:02 79 14 114/75 96 Room Air Laboratory Results CBC, CMP, BNP, VBG, lactate, phosphorus, magnesium, troponin, TSH, respiratory BioFire reviewed Diagnostic Findings CXR and CTA chest reviewed Chest X-Ray 07/09/25 11:08 XR chest 1V portable CLINICAL HISTORY: Evaluate for pneumonia. COMPARISON STUDY: Chest CT October 04, 2024. Chest CT performed earlier today. FINDINGS: Postoperative findings within lower thoracic spine are incidentally noted. There are small bilateral pleural effusions. There is no pneumothorax. Cardiomegaly is again noted. Mild bibasilar opacities favor atelectasis. There is mild interstitial thickening. No consolidation to suggest pneumonia. IMPRESSION: 1. Cardiomegaly with mild interstitial pulmonary edema and small bilateral pleural effusions. 2. Bibasilar opacities which favor atelectasis. ACT 112: Negative or not required by law. Electronically signed by: Corwin Leslie M.D. 07/09/2025 12:14 PM Chest CTA 07/09/25 11:41 CT angio chest PE protocol CT DOSE: 383.66 mGy.cm HISTORY: 79 years-old Female with PE. Acute shortness of breath TECHNIQUE: Multiple CTA images of the chest were obtained after the intravenous administration of 119 ml Optiray. Coronal and sagittal MIPS were obtained from the axial data set and were submitted for review. All measurements were obtained according to NASCET criteria. A dose lowering technique was utilized adhering to the principles of ALARA. COMPARISON: Thoracolumbar radiographs 06/25/2025, chest CT 10/04/2024 FINDINGS: CTA: Unchanged cardiomegaly with small pericardial effusion. No thoracic aortic aneurysm. Dilation of the pulmonary arterial tree is again noted within the main pulmonary artery measuring 3.6 cm transversely. No pulmonary emboli are identified. CT CHEST: Unremarkable thyroid. Mildly enlarged subcarinal lymph node is likely physiologic. Small left with [id number] right pleural effusions. No pneumothorax. Pulmonary emphysema with interlobular septal thickening. Prior left upper lobe wedge resection. Mild dependent bibasilar atelectasis. Linear stable nodular foci of the right upper lobe are redemonstrated measuring 11 mm on image 181, 9 mm on image 170 and 7 mm on image 168. Stable 4 mm solid nodule in the right lower lobe on image 89 series 4. Unchanged 5 mm groundglass nodule right lower lobe on image 95. Central airways are patent. No acute upper abdominal abnormality. Degenerative and postoperative changes of the spine with unchanged appearance of the thoracic compression deformities. IMPRESSION: 1. Evidence of pulmonary arterial hypertension without pulmonary emboli identified. 2. Cardiomegaly with interstitial pulmonary edema, small left and rlzxa-[id number] right pleural effusions. 3. Stable pericardial effusion. 4. Pulmonary emphysema. 5. Stable nodular foci of the right lung. ACT 112: Negative or not required by law. The above report was generated using voice recognition software. It may contain grammatical, syntax or spelling errors. Electronically signed by: Dony Corado M.D. 07/09/2025 12:32 PM ECG Additional Comments: ECG on 07/09/2025 at 10:19 AM with rapid atrial fibrillation, rate 155, nonspecific T wave abnormality in inferior leads ECG on 07/09/2025 at 11:43 AM with rapid atrial fibrillation, rate 143, no T wave changes ECG on 07/09/2025 at 12:41 AM with rapid atrial fibrillation with rate 124, no ischemic changes Code Status & VTE Plan Code Status Full code VTE Prophylaxis Plan VTE Prophylaxis will be ordered: Yes PG Care Time/CCT Total # of Minutes Spent Total Time Spent with Patient: Total time spent is greater than 50% in coordination of care (as documented) at patient's floor/unit and/or counseling patient: Coding Level of Care Code 47877 INT INP/OBS CARE MIN Diagnoses Paroxysmal atrial fibrillation I48.0 (HFpEF) heart failure with preserved ejection fraction I50.30 Severe chronic obstructive pulmonary disease J44.9 Hyponatremia E87.1
[2025-07-09 13:33] LABS: T4 Free Thyroxine 0.96 ng/dl (0.61-1.60)
[2025-07-09] MEDS: HEPARIN 25000 UNIT/500 ML D5W 25,000 UNITS/500 ML BAG IV SCH (14:23)
[2025-07-09] MEDS: HEPARIN SOD (PORCINE) 1000 UNIT/ML IV ONE (14:23)
[2025-07-09] MEDS: Heparin IV Adult Wt-Based Standard w/ INITIAL Bolus Protocol IV STA (14:23)
--- NOTE | 2025-07-09 14:40 | XCELERA ---
[id number] \\[id number]
--- NOTE | 2025-07-09 14:40 | Electrocardiogram Report ---
Test Reason : Blood Pressure : */* mmHG Vent. Rate : 124 BPM Atrial Rate : * BPM P-R Int : * ms QRS Dur : 74 ms QT Int : 340 ms P-R-T Axes : * 56 22 degrees QTcB Int : 488 ms Atrial fibrillation with rapid ventricular response with premature ventricular or aberrantly conducte d complexes Septal infarct (cited on or before 09-Jul-2025) Abnormal ECG When compared with ECG of 09-Jul-2025 11:43, No significant change was found Confirmed by Edward Bennett ([id number]) on 07/09/2025 2:40:29 PM Referred By: REFERRED SELF Confirmed By: Edward Bennett
[2025-07-09] MEDS ORDERED: ONDANSETRON INJ 2 MG/ML 2 ML VIAL IV PRN (15:18)
[2025-07-09] MEDS ORDERED: ACETAMINOPHEN 500 MG TAB PO PRN (15:18)
[2025-07-09] MEDS ORDERED: ALBUTEROL HFA 8 GM INHALER INH PRN (15:18)
[2025-07-09] MEDS ORDERED: POLYETHYLENE (MIRALAX) 17 GM PACK PO PRN (15:18)
[2025-07-09] MEDS: FUROSEMIDE 40 MG/4 ML VIAL IV SCH (17:28)
[2025-07-09] MEDS: LOSARTAN POTASSIUM 25 MG TAB PO SCH (20:27)
[2025-07-09] MEDS: CALCIUM 600MG + VIT D 400 IU TAB PO SCH (20:27)
[2025-07-09 21:36] LABS: ANTI-Xa, UFH(UnfractionatedHep 1.06 IU/ml (0.3-0.7)
[2025-07-09] MEDS ORDERED: MELATONIN 3 MG TAB PO PRN (22:00)
[2025-07-10 06:00] LABS: Hematocrit (blood only) 34.9 % (37.0-47.0); Hemoglobin 11.9 g/dL (12.0-16.0); Immature Granulocytes # (auto) 0.01 K/uL (0.01-0.20); Immature Granulocytes % (auto) 0.2 %; Mean Corpuscular Hemoglobin 31.4 pg (25.0-34.0); Mean Corpuscular Volume 92.1 fL (80.0-100.0); Platelet Count 225 K/uL (130-400); RDW Standard Deviation 46.9 fL (36.4-46.3); Red Blood Count 3.79 M/uL (4.20-5.40); White Blood Count 5.34 K/ul (4.8-10.8)
[2025-07-10 06:25] LABS: Alanine Aminotransferase 88.0 U/L (7-52); Albumin Globulin Ratio 1.5 (0.9-2); Albumin Level 3.4 gm/dl (3.4-5.0); Alkaline Phosphatase 126.0 U/L (34-104); Anion Gap 9.0 (3-11); Bilirubin,Total 0.4 mg/dl (0.2-1.0); Blood Urea Nitrogen 22.0 mg/dl (6-23); Calcium 8.9 mg/dl (8.6-10.3); Carbon Dioxide 26.0 mmol/L (21-32); Chloride 101.0 mmol/L (98-107); Creatinine Clr Calc Pharmacy 49.1 ml/min; Globulin 2.3 gm/dl (2.5-4.0); Glucose 101.0 mg/dl (70-99(Fasting)); Magnesium 2.0 mg/dl (1.7-2.4); Potassium 3.0 mmol/L (3.5-5.1); Sodium 136.0 mmol/L (136-145); Total Protein 5.7 gm/dl (6.0-8.3)
[2025-07-10 06:26] LABS: ANTI-Xa, UFH(UnfractionatedHep 0.37 IU/ml (0.3-0.7)
[2025-07-10] MEDS: BUDESONIDE EC 3 MG CAP PO SCH (09:37)
[2025-07-10] MEDS: CYANOCOBALAMIN (B-12) 500 MCG TABLET PO SCH (09:38)
[2025-07-10] MEDS: CHOLECALCIFEROL 25 MCG (1000 UNITS) TAB PO SCH (09:39)
[2025-07-10] MEDS: POTASSIUM CHLORIDE CRTAB 20 MEQ TABCR PO SCH (09:40)
[2025-07-10] MEDS: UMECLIDINIUM/VILANTEROL 62.5/25MCG 7 PUFFS/INHALER INH SCH (09:41)
--- NOTE | 2025-07-10 12:20 | Cardiology Consultation ---
Date of Consultation July 10, 2025 Assessment & Plan (1) Atrial fibrillation with rapid ventricular response: -Ventricular response now better controlled on intravenous diltiazem. -Would use intravenous metoprolol titrate for breakthrough. -Consider use of intravenous amiodarone once liver transaminases normalize. (2) HTN (hypertension): - Borderline BP readings may require a change in his medical regimen. (3) Acute exacerbation of CHF (congestive heart failure): - Would continue intravenous Lasix at twice daily dosing for now. History of Present Illness Attending Physician: Alecia Askew MD History of Present Illness Mrs. Drew is a 79-year-old female admitted yesterday with atrial fibrillation and a rapid ventricular response. This consultation was ordered to assist in her cardiac management. The patient's recent history began on May 27 when she underwent a T10-T11 decompression and a posterior fusion of T10-T11, T11-T12. Unfortunately, her procedure was complicated by a nontraumatic thoracic epidural hematoma which required emergent I&D back on June 08. The patient recovered well from that surgery. The patient was seen in her PCPs office on July 08 and was noted to have normal vital signs according to the record. She presented to the emergency room after the development of shortness of breath, cough, and very symptomatic palpitations. She was found to be in atrial fibrillation with a rapid ventricular response. She was treated with intravenous diltiazem with some control in her ventricular response. She has never known of history of paroxysmal atrial fibrillation previously. However, she does give a history of intermittent, sustained palpitations over the last several years. These are always short lived and self-limited. Currently, patient was resting comfortably in bed without complaints. Past medical and surgical history 1. Hypertension 2. Hypercholesterolemia 3. LVH 4. Paroxysmal atrial fibrillationDeceer 2024 5. Hyperglycemia 6. GERD 7. Hernia 8. Irritable bowel syndrome 9. COPD 10. Lung [id number] 11. Left upper lobe wedge [id number] 12. Lymphocytic colitis 13. B12 deficiency 14. Glaucoma 15. Hearing deficit 16. Osteopenia Social history and lives with her at [facility] No tobacco or alcohol Family history Mother at 49 from a cerebral aneurysm Father at 87 from unknown causes Review of systems A 10 point review of system was undertaken and negative except for that described above. Allergies Allergy/AdvReac Type Severity Reaction Status Date / Time nickel Allergy Mild Rash Verified 07/08/25 14:05 adhesive tape Allergy Skin Verified 07/08/25 14:05 peeling codeine AdvReac Intermediate Nausea Verified 07/08/25 14:05 meloxicam [From Mobic] AdvReac Intermediate Diarrhea Verified 07/08/25 14:05 oxycodone AdvReac Intermediate Nausea Verified 07/08/25 14:05 azithromycin AdvReac Mild Diarrhea Verified 07/08/25 14:05 lactose AdvReac Mild Diarrhea Verified 07/08/25 14:05 Home Medications Medication Instructions Recorded Confirmed Type calcium 600 mg (as 1 tab PO BID 03/12/19 07/09/25 History carbonate)-vitamin D3 5 mcg (200 unit) tablet melatonin 5 mg capsule 5 - 10 mg PO DAILY PRN Sleep 11/23/22 07/09/25 History albuterol sulfate 90 mcg/actuation 2 puff inhalation Q6H PRN 04/20/24 07/09/25 Rx aerosol inhaler Shortness Of Breath Or Wheezing #18 grams budesonide 3 mg 3 mg PO QAM 09/05/24 07/09/25 History capsule,delayed,extended release umeclidinium 62.5 mcg-vilanterol 1 inh inhalation QAM 09/05/24 07/09/25 History 25 mcg/actuation powdr for inhalation (Anoro Ellipta) simethicone 125 mg capsule 125 mg PO DAILY PRN gas/bloating 09/27/24 07/09/25 H istory cholecalciferol (vitamin D3) 50 50 mcg PO QAM 05/05/25 07/09/25 History mcg (2,000 unit) capsule (Vitamin D3) cyanocobalamin (vitamin B-12) 1,000 mcg PO QAM 05/05/25 07/09/25 History 1,000 mcg tablet (Vitamin B-12) denosumab 60 mg/mL subcutaneous 60 mg subcut UD 05/05/25 07/09/25 History syringe (Prolia) olmesartan 20 mg tablet 10 mg PO HS 05/05/25 07/09/25 History triamcinolone acetonide 0.1 % 1 applic topical BID Skin 05/05/25 07/09/25 History topical cream Irritation acetaminophen 500 mg tablet 500 mg PO DAILY PRN Pain 07/02/25 07/09/25 History (Tylenol Extra Strength) amlodipine 2.5 mg tablet 2.5 mg PO DAILY 07/02/25 07/09/25 History carvedilol 25 mg tablet 12.5 mg PO BID 07/02/25 07/09/25 History potassium chloride 20 mEq 20 meq PO DAILY #90 tabs 07/08/25 07/09/25 Rx tablet,extended release apixaban 5 mg tablet (Eliquis) 5 mg PO BID #60 tabs 07/10/25 Rx Patient History Medical History (Updated 07/10/25 @ 12:06 by Edward Bennett MD) Atrial fibrillation with rapid ventricular response Spinal stenosis Glaucoma per medical record Degenerative disc disease History of COVID- ~2022: mild symptoms, resolved Chronic obstructive pulmonary disease Osteoarthritis Degenerative spondylolisthesis Prediabetes 05/13/25: A1C 5.9% Patient denies diagnosis Osteoporosis IBS (irritable bowel syndrome) Compression fracture of thoracic spine, non-traumatic History of colon polyps Hyponatremia Chronic Primary lung adenocarcinoma Dx 2019, s/p surgery + chemo Osteopenia Hiatal hernia no issues GERD (gastroesophageal reflux disease) Per records, pt denies HTN (hypertension) Eczema Flares during winter Hearing loss B/L hearing aids Surgical History History of lumbar surgery L3-L5 Laminectomy and fusion: Grade view 1, [place]#2, ETT 7, atraumatic, [facility] (10/07/24) History of total knee replacement right History of lung biopsy History of lung surgery Left Robotic Video Assisted Thoracoscopy with Left Upper Wedge Resection and Mediastinal Lymphadenectomy (11/14/19) History of cataract surgery right/left H/O esophagogastroduodenoscopy History of colonoscopy Family History Father , 87yo Type 2 diabetes mellitus Myocardial infarction Mother , 49yo Cerebral aneurysm Sister No problems noted. Son No problems noted. Daughter No problems noted. Other No family history of adverse response to anesthesia Denies family history of Colon cancer Ovarian cancer Prostate cancer Crohn's disease Social History Smoking Status: Former smoker Tobacco Type: Cigarettes Age Started Using Tobacco: 20; Age Quit Using Tobacco: 73; packs per day: 1; Second Hand Exposure: No; Do You Dip or Chew Tobacco: No; Hx Alcohol Use: Yes Alcohol type: beer, wine and hard liquor Alcohol Intake Fr equency: 4 or More x per/Week Hx Substance Use: No Preferred Language: Setswana Communication Ability: Effective Visual Impairment: No Limitations Hearing Ability: Use of Hearing Aid Supervisor Grips Required: No Beliefs That Will Affect Care: None marital status: Current Living Situation: Spouse Current Living Situation Comment: lives with at [facility]/independent living current occupational status: retired current occupation: Worked in a [employer] Feels Safe at Home: Yes Childhood Exposure to Second-Hand Smoke: Yes Diet: low salt Diet Comment: fresh fruits and vegetables caffeine: Yes (1 cup day. ) during the past year weight has: remained stable Dental Care, Regularly: Yes Physical Activity Frequency: 3-4 Times per Week Seatbelt Use: always Sunscreen Use: Yes Assistive Devices: Glasses, Hearing Aid - Bilateral and Walker Results & Data Vital Signs (Past 12 Hours) Vital Signs Temp Pulse Resp BP Pulse Ox O2 Del Method 07/10/25 11:24 36.4 C L 79 18 95/61 L 95 Room Air 07/10/25 07:20 36.6 C 104 H 19 123/67 91 Room Air 07/10/25 02:59 36.8 C 90 18 99/53 L 90 Room Air PG Care Time/CCT Total # of Minutes Spent Total Time Spent with Patient: Total time spent is greater than 50% in coordination of care (as documented) at patient's floor/unit and/or counseling patient: Coding Level of Care Code 95877 INT INP/OBS CARE 3/75MIN Diagnoses Atrial fibrillation with rapid ventricular response I48.91 HTN (hypertension) I10 Acute exacerbation of CHF (congestive heart failure) I50.9
--- NOTE | 2025-07-10 16:47 | Hospitalist Progress Note ---
Date of Service July 10, 2025 Assessment & Plan (1) Paroxysmal atrial fibrillation: (2) (HFpEF) heart failure with preserved ejection fraction: (3) Severe chronic obstructive pulmonary disease: (4) Hyponatremia: Plan This patient is a 79-year-old female with a history of HTN, COPD, hyponatremia, osteopenia, lung adenocarcinoma s/p wedge resection, HLD, B12 deficiency, lymphocytic colitis, prediabetes, and recent thoracic decompression and fusion with subsequent postoperative thoracic epidural hematoma with spinal cord compression requiring emergent drainage on 06/08, who presents to the ED with 1 day of shortness of breath, heart palpitations, and cough. She was seen at her PCP office the day before with normal vital signs and no symptoms at that time except feeling a little lightheaded. In the ED, she was found to be in new onset rapid atrial fibrillation with rates in the 150s. She was given a Cardizem bolus and started on a drip as well as given IV Lasix. She was found to have bilateral pleural effusions on chest x-ray and an elevated BNP. Her heart rates were improved to the 90s but she still felt short of breath. She will be admitted for new onset rapid atrial fibrillation and acute on chronic HFpEF. #Atrial fibrillation with RVR-this is new in onset. Her [id number] score is quite elevated at 6 due to her age, sex, CHF, HTN, and history of aortic plaque. Rates are uncontrolled likely leading to acute HFpEF. Responding to diltiazem drip and heart rates are now in the 90s to 1 teens. Appreciate cardiology consultation. Echocardiogram with preserved EF, mild-moderate MR, no WMAs - Continued stay on PCU for telemetry monitoring - Continue diltiazem drip and titrate as needed for rate control - Cardiology says to consider IV amiodarone if LFTs continue to normalize - Continue to hold home amlodipine while on diltiazem - Continue home carvedilol but may need to increase dose for improved rate control and hypertension -Continue heparin drip and follow anti-Xa levels; plan to start Eliquis if river check with case management is affordable - follow CBC, BMP, magnesium and keep electrolytes replete-for hypokalemia-give 40 mEq p.o. 3 times daily x 3 doses of KCl #Acute HFpEF/HTN/HLD-with pleural effusions, elevated BNP, shortness of breath and cough. Likely secondary to rapid atrial fibrillation. BPs are quite elevated and now improving with IV diuretics and diltiazem drip. Shortness of breath is improved. Echo with preserved EF, mild-moderate MR - Continuing on diltiazem drip for rate control- Hold home amlodipine while on diltiazem - Continue ARB - Consider adding on SGLT2 inhibitor for heart failure - Continue Lasix 40 mg IV twice daily for now - She is not on a statin but does have evidence of diffuse aortic plaque as well as vertebral artery stenosis on previous imaging-consider statin - Monitor for need for supplemental O2 and monitor chest imaging with pleural effusions - Strict I's and O's, daily weights, low-sodium diet, fluid restriction #COPD/history of lung cancer-status post upper lung wedge resection for cancer and chemotherapy now in remission. No wheezing on examination - Continue albuterol as needed - Continue maintenance inhaler - Supplemental O2 to keep pulse ox greater than 90% #Hyponatremia-sodium low at 133 on admission likely secondary to volume overload. Sodium has now normalized with IV diuretics - Continue diuresing and follow BMP #Transaminitis-AST and ALT are elevated at 108 and 112 with elevated alkaline phosphatase at 156 on admission. Her AST and ALT were in the 50s 1 day prior on outpatient labs and this is new for her. She has no abdominal pain or tenderness. Suspect this is from hepatic congestion from heart failure. LFTs are improving now with diuresis - Continue diuresing - Follow LFTs #Recent thoracic spine surgery-no acute issues, no evidence of infection of the wound site on exam. Recently seen by her orthopedic spine surgeon and her previous neurologic deficits are improving-previously had left dropfoot and left lower extremity weakness - Follow-up with orthopedic spine surgery in 1 month as scheduled - PT/OT consults placed #Lymphocytic colitis-no acute issues - Continue home budesonide DVT prophylaxis-heparin drip Disposition-continued stay on PCU, PT/OT evaluations ordered due to recent back surgery and rehab stay Admission and Anticipated Discharge Date Admission Date: July 09, 2025 Subjective Patient feeling overall better today. Much less short of breath and the lightheadedness is still mild but much improved from previous. Telemetry with atrial fibrillation with heart rates lower in the 90s to 110s Physical Exam Constitutional: WD/WN, vitals as above Neck: trachea midline, no thyromegaly Respiratory: normal respiratory effort Auscultation: + diminished lung sounds (Bibasilar); no rhonchi and no wheezes Cardiovascular: Rate/Rhythm: + tachycardic and + irregularly irregular Heart Sounds: no murmur Extremities: no edema Chest (Breasts): Chest: normal inspection of chest Gastrointestinal (Abdomen): normal bowel sounds, soft, nontender, no hepatosplenomegaly Musculoskeletal: Extremities: extremities normal to inspection; no cyanosis and no clubbing Skin: no rashes, warm and dry Neurologic: moves all extremities and awake; no focal motor deficits Psychiatric: A+Ox3, euthymic affect Lymphatic: no lymphedema Results & Data Results & Data Vital Signs (Past 12 Hours) Vital Signs Temp Pulse Resp BP Pulse Ox O2 Del Method 07/10/25 15:25 36.5 C 89 18 118/69 93 Room Air 07/10/25 11:24 36.4 C L 79 18 95/61 L 95 Room Air 07/10/25 07:20 36.6 C 104 H 19 123/67 91 Room Air Laboratory Results CBC, BMP, magnesium, anti-Xa levels, LFTs reviewed PG Care Time/CCT Total # of Minutes Spent Total Time Spent with Patient: Total time spent is greater than 50% in coordination of care (as documented) at patient's floor/unit and/or counseling patient: Coding Level of Care Code 52203 SUB INP/OBS CARE 3/50MIN Diagnoses Paroxysmal atrial fibrillation I48.0 (HFpEF) heart failure with preserved ejection fraction I50.30 Severe chronic obstructive pulmonary disease J44.9 Hyponatremia E87.1
[2025-07-10] MEDS: [UNRECOGNIZED DRUG - REMARK] ONE (21:08)
[2025-07-10] MEDS: APIXABAN 5 MG TABLET PO SCH (21:10)
[2025-07-11 06:01] LABS: Hematocrit (blood only) 33.1 % (37.0-47.0); Hemoglobin 11.3 g/dL (12.0-16.0); Immature Granulocytes # (auto) 0.01 K/uL (0.01-0.20); Immature Granulocytes % (auto) 0.2 %; Mean Corpuscular Hemoglobin 31.5 pg (25.0-34.0); Mean Corpuscular Volume 92.2 fL (80.0-100.0); Platelet Count 214 K/uL (130-400); RDW Standard Deviation 47.8 fL (36.4-46.3); Red Blood Count 3.59 M/uL (4.20-5.40); White Blood Count 4.58 K/ul (4.8-10.8)
[2025-07-11 06:23] LABS: Alanine Aminotransferase 65.0 U/L (7-52); Albumin Globulin Ratio 1.5 (0.9-2); Albumin Level 3.6 gm/dl (3.4-5.0); Alkaline Phosphatase 107.0 U/L (34-104); Anion Gap 7.0 (3-11); Bilirubin,Total 0.4 mg/dl (0.2-1.0); Blood Urea Nitrogen 21.0 mg/dl (6-23); Calcium 9.4 mg/dl (8.6-10.3); Carbon Dioxide 26.0 mmol/L (21-32); Chloride 103.0 mmol/L (98-107); Creatinine Clr Calc Pharmacy 54.3 ml/min; Globulin 2.4 gm/dl (2.5-4.0); Glucose 111.0 mg/dl (70-99(Fasting)); Magnesium 1.8 mg/dl (1.7-2.4); Potassium 4.2 mmol/L (3.5-5.1); Sodium 136.0 mmol/L (136-145); Total Protein 6.0 gm/dl (6.0-8.3)
[2025-07-11] MEDS: MAGNESIUM SULFATE / D5W 1 GM/100 ML BAG IV ONE (08:25)
--- NOTE | 2025-07-11 09:04 | Hospitalist Progress Note ---
Date of Service July 11, 2025 Assessment & Plan (1) Paroxysmal atrial fibrillation: (2) (HFpEF) heart failure with preserved ejection fraction: (3) Severe chronic obstructive pulmonary disease: (4) Hyponatremia: Plan This patient is a 79-year-old female with a history of HTN, COPD, hyponatremia, osteopenia, lung adenocarcinoma s/p wedge resection, HLD, B12 deficiency, lymphocytic colitis, prediabetes, and recent thoracic decompression and fusion with subsequent postoperative thoracic epidural hematoma with spinal cord compression requiring emergent drainage on 06/08, who presents to the ED with 1 day of shortness of breath, heart palpitations, and cough. She was seen at her PCP office the day before with normal vital signs and no symptoms at that time except feeling a little lightheaded. In the ED, she was found to be in new onset rapid atrial fibrillation with rates in the 150s. She was given a Cardizem bolus and started on a drip as well as given IV Lasix. She was found to have bilateral pleural effusions on chest x-ray and an elevated BNP. Her heart rates were improved to the 90s but she still felt short of breath. She is admitted for new onset rapid atrial fibrillation and acute on chronic HFpEF. #Atrial fibrillation with RVR-this is new in onset. Her [id number] score is quite elevated at 6 due to her age, sex, CHF, HTN, and history of aortic plaque. Rates are uncontrolled likely leading to acute HFpEF. Responding to diltiazem drip and heart rates are now in the 80s-90s on 5 mg per hour. Appreciate cardiology consultation. Echocardiogram with preserved EF, mild-moderate MR, no WMAs - Continued stay on PCU for telemetry monitoring - Start diltiazem CD120 mg p.o. every morning and titrate off diltiazem drip - Cardiology says to consider IV amiodarone if LFTs continue to normalize-defer to cardiology - Discontinue home amlodipine now that she is on diltiazem - Continue home carvedilol for rate control and hypertension - Initially on heparin drip and converted to Eliquis 5 mg p.o. twice daily-this will be $40 per month-Will have nurse navigator give coupon for first month free - follow CBC, BMP, magnesium and keep electrolytes replete-give 1 g IV magnesium sulfate to keep mag greater than 2.0 #Acute HFpEF/HTN/HLD-with pleural effusions, elevated BNP, shortness of breath and cough. Likely secondary to rapid atrial fibrillation. BPs were quite elevated and now normal with IV diuretics and diltiazem drip. Shortness of breath is now resolved. Echo with preserved EF, mild-moderate MR - Converting diltiazem drip to oral diltiazem for rate control-stopped home amlodipine - Continue ARB - Consider adding on SGLT2 inhibitor for heart failure-defer to cardiology - Received Lasix 40 mg IV twice daily and now convert to Lasix 40 mg p.o. once daily - She is not on a statin but does have evidence of diffuse aortic plaque as well as vertebral artery stenosis on previous imaging-consider statin-defer to PCP - Monitor for need for supplemental O2 and monitor chest imaging with pleural effusions-check CXR on the a.m. of 07/12 - Strict I's and O's, daily weights, low-sodium diet, fluid restriction #COPD/history of lung cancer-status post upper lung wedge resection for cancer and chemotherapy now in remission. No wheezing on examination, no supplemental O2 required - Continue albuterol as needed - Continue maintenance inhaler #Hyponatremia-sodium low at 133 on admission likely secondary to volume overload. Sodium has now normalized with IV diuretics - Continue diuresing and follow BMP #Transaminitis-AST and ALT are elevated at 108 and 112 with elevated alkaline phosphatase at 156 on admission. Her AST and ALT were in the 50s 1 day prior on outpatient labs and this is new for her. She has no abdominal pain or tenderness. Suspect this is from hepatic congestion from heart failure. LFTs are continuing to improve/normalize with diuresis - Continue diuresing - Follow LFTs in the a.m. #Right forearm skin tear-trauma induced when she accidentally hit her arm off the bed. Does not require sutures - Continue to keep wound clean and Optifoam applied - Wound care nurse consult placed - Monitor for infection #Recent thoracic spine surgery-no acute issues, no evidence of infection of the wound site on exam. Recently seen by her orthopedic spine surgeon and her previous neurologic deficits are improving-previously had left dropfoot and left lower extremity weakness - Follow-up with orthopedic spine surgery in 1 month as scheduled - PT/OT consults recommend that she is able to return home #Lymphocytic colitis-no acute issues - Continue home budesonide DVT prophylaxis-heparin drip converted to Eliquis Disposition-continued stay on PCU, PT/OT evaluations recommend able to return home when medically stable. Hopefully can discharge to home on 07/12 if heart rates remain controlled on oral AV mir blockers after conversion off diltiazem drip. Also dependent on if starting amiodarone. Admission and Anticipated Discharge Date Admission Date: July 09, 2025 Subjective Patient had a skin tear overnight that was bleeding on her right forearm that she hit off the side of the bed. Otherwise only feels a little lightheaded when she stands up but feels that that is at her baseline. No shortness of breath. Does not feel that she is making as much urine as before. Tele with Afib rates 80s-90s, did drop briefly to 60s overnight Physical Exam Constitutional: WD/WN, vitals as above Neck: trachea midline, no thyromegaly Respiratory: normal respiratory effort Auscultation: + diminished lung sounds (Bibasilar, but improved air movement from previous); no crackles, no rhonchi and no wheezes Cardiovascular: Rate/Rhythm: + irregularly irregular Heart Sounds: no murmur Extremities: no edema Chest (Breasts): Chest: normal inspection of chest Musculoskeletal: Extremities: extremities normal to inspection; no cyanosis a nd no clubbing Skin: Trauma: + evidence of skin trauma (Skin tear approximately 3 x 2 cm right dorsal forearm, mild oozing of blood) Neurologic: moves all extremities and awake; no focal motor deficits Psychiatric: A+Ox3, euthymic affect Lymphatic: no lymphedema Results & Data Results & Data Vital Signs (Past 12 Hours) Vital Signs Temp Pulse Pulse Resp BP Pulse Ox O2 Del Method 07/11/25 08:28 36.4 C L 113 H 18 118/67 96 Room Air 07/11/25 03:46 36.6 C 82 16 104/63 94 Room Air 07/10/25 23:18 36.5 C 102 H 17 143/84 H 92 Room Air 07/10/25 21:59 92 H Laboratory Results CBC, BMP, LFTs, magnesium reviewed PG Care Time/CCT Total # of Minutes Spent Total Time Spent with Patient: Total time spent is greater than 50% in coordination of care (as documented) at patient's floor/unit and/or counseling patient: Coding Level of Care Code 18770 SUB INP/OBS CARE MIN Diagnoses Paroxysmal atrial fibrillation I48.0 (HFpEF) heart failure with preserved ejection fraction I50.30 Severe chronic obstructive pulmonary disease J44.9 Hyponatremia E87.1
[2025-07-11] MEDS ORDERED: AMIODARONE IV BOLUS & DRIP IV STA (17:44)
[2025-07-11] MEDS ORDERED: STAT IV Infusion **Titration per Protocol STA (17:44)
[2025-07-11] MEDS ORDERED: 0.2 MICRON FILTER SET 1 EACH IV STA (17:44)
[2025-07-11] MEDS: AMIODARONE / D5W 150 MG/100 ML BAG IV STA (18:08)
[2025-07-11] MEDS: AMIODARONE / D5W 360 MG/200 ML BAG IV ONE (18:09)
[2025-07-11] MEDS: AMIODARONE / D5W 360 MG/200 ML BAG IV SCH (23:47)
[2025-07-12 06:28] LABS: Hematocrit (blood only) 32.7 % (37.0-47.0); Hemoglobin 11.2 g/dL (12.0-16.0); Immature Granulocytes # (auto) 0.01 K/uL (0.01-0.20); Immature Granulocytes % (auto) 0.2 %; Mean Corpuscular Hemoglobin 31.6 pg (25.0-34.0); Mean Corpuscular Volume 92.4 fL (80.0-100.0); Platelet Count 210 K/uL (130-400); RDW Standard Deviation 47.2 fL (36.4-46.3); Red Blood Count 3.54 M/uL (4.20-5.40); White Blood Count 4.60 K/ul (4.8-10.8)
[2025-07-12 06:54] LABS: Alanine Aminotransferase 52.0 U/L (7-52); Albumin Globulin Ratio 1.5 (0.9-2); Albumin Level 3.7 gm/dl (3.4-5.0); Alkaline Phosphatase 96.0 U/L (34-104); Anion Gap 8.0 (3-11); Bilirubin,Total 0.3 mg/dl (0.2-1.0); Blood Urea Nitrogen 22.0 mg/dl (6-23); Calcium 9.0 mg/dl (8.6-10.3); Carbon Dioxide 25.0 mmol/L (21-32); Chloride 101.0 mmol/L (98-107); Creatinine Clr Calc Pharmacy 65.4 ml/min; Globulin 2.4 gm/dl (2.5-4.0); Glucose 106.0 mg/dl (70-99(Fasting)); Magnesium 2.1 mg/dl (1.7-2.4); Potassium 3.7 mmol/L (3.5-5.1); Sodium 134.0 mmol/L (136-145); Total Protein 6.1 gm/dl (6.0-8.3)
--- NOTE | 2025-07-12 08:21 | XRay Report ---
XR chest 1V portable HISTORY: 79 years-old Female Follow-up pleural effusions, CHF acute shortness of breath COMPARISON: 07/09/2025 TECHNIQUE: AP view of the chest FINDINGS: Moderate enlargement of the cardiac silhouette. Pulmonary vascular congestion with interstitial coars ening. No pneumothorax. Trace pleural effusions with mild bibasilar opacities are again noted. Spinal fusion hardware. IMPRESSION: 1. Cardiomegaly with unchanged mild interstitial pulmonary edema. 2. Trace pleural effusions with mild bibasilar atelectasis appears unchanged. ACT 112: Negative or not required by law. The above report was generated using voice recognition software. It may contain grammatical, syntax o r spelling errors. Electronically signed by: Dony Corado M.D. 07/12/2025 8:19 AM
[2025-07-12] MEDS: FUROSEMIDE 40 MG TAB PO SCH (08:39)
--- NOTE | 2025-07-12 10:27 | Hospitalist Progress Note ---
Date of Service July 12, 2025 Assessment & Plan (1) Paroxysmal atrial fibrillation: Plan: -on cardizem CD -eliquis -amiodarone bolus and drip started yesterday -pt still in afib -cardiology follow up pending (2) (HFpEF) heart failure with preserved ejection fraction: Plan: - Continue ARB - Consider adding on SGLT2 inhibitor for heart failure-defer to cardiology - Received Lasix 40 mg IV twice daily and now convert to Lasix 40 mg p.o. once daily (3) Severe chronic obstructive pulmonary disease: Plan: - Continue albuterol as needed - Continue maintenance inhaler (4) Hyponatremia: Plan: Na+ 134 Plan This patient is a 79-year-old female with a history of HTN, COPD, hyponatremia, osteopenia, lung adenocarcinoma s/p wedge resection, HLD, B12 deficiency, lymphocytic colitis, prediabetes, and recent thoracic decompression and fusion with subsequent postoperative thoracic epidural hematoma with spinal cord compression requiring emergent drainage on 06/08, who presents to the ED with 1 day of shortness of breath, heart palpitations, and cough. She was seen at her PCP office the day before with normal vital signs and no symptoms at that time except feeling a little lightheaded. In the ED, she was found to be in new onset rapid atrial fibrillation with rates in the 150s. She was given a Cardizem bolus and started on a drip as well as given IV Lasix. She was found to have bilateral pleural effusions on chest x-ray and an elevated BNP. Her heart rates were improved to the 90s but she still felt short of breath. She is admitted for new onset rapid atrial fibrillation and acute on chronic HFpEF. #Right forearm skin tear-trauma induced when she accidentally hit her arm off the bed. Does not require sutures - Continue to keep wound clean and Optifoam applied - Wound care nurse consult placed - Monitor for infection DVT prophylaxis-heparin drip converted to Eliquis Disposition-d/c home planned for today or tomorrow, awaiting cardiology follow up. Admission and Anticipated Discharge Date Admission Date: July 09, 2025 Subjective -No events overnight. Pt resting comfortably in bed. HR has been uncontrol, still in afib. Review of Systems Review of Systems: CONST: Negative for fever, body aches and chills. HENT: Negative for neck pain/stiffness, headache, congestion, sore throat, swelling. EYES: Negative for discharge/pain or vision changes. RESP: Negative for cough/hemoptysis and shortness of breath. CV: Negative chest pain, difficulty breathing, palpitations. ABD: Negative pain, nausea, vomiting. : Negative increase frequency, dysuria, blood in urine or stool. MUSC: Negative for muscle aches, edema. SKIN: Negative rash, lesions/sores. NEURO: Negative headache, dizziness, weakness. Physical Exam Physical Exam: GENERAL APPEARANCE NAD, activity normal for age, well developed/ well nourished, no cyanosis, pallor, or diaphoresis. EYES lids/conjunctiva normal. EARS/NOSE/THROAT Mucous membranes moist, nares normal, lips/teeth normal uvula midline without oral pharyngeal erythema, exud ate or swelling TMs normal bilaterally. No lymphangitis/lymphedema. HEAD/NECK normocephalic atraumatic, no facial trauma, neck is supple. RESPIRATORY respiratory effort normal, speaks in full sentences, no tripod position, no accessory muscle use. Lungs clear to auscultation without rhonchi, wheezes, rales CARDIAC Regular rate and rhythm, no edema. ABDOMINAL Soft, ND/NT. No evidence of fluid wave. No pulsatile masses on exam, rebound tenderness, Haynes sign or pain over Mcburney's point. MUSCLES/EXTREMITIES No abnormal range of motion, no swelling. SKIN Warm, pink and dry. No rashes, dermatoses, petechiae or lesions. NEUROLOGICAL Speech is clear and appropriate. Normal level of consciousness. Gait and coordination are normal. 5/5 strength in all extremities. PSYCH Normal mood and affect. Judgement/competence is appropriate Results & Data Results & Data Vital Signs (Past 12 Hours) Vital Signs Temp Pulse Pulse Resp BP Pulse Ox O2 Del Method 07/12/25 08:14 36.3 C L 107 H 20 140/73 94 Room Air 07/12/25 05:37 97 H 07/12/25 02:51 36.6 C 80 18 122/56 L 92 Room Air PG Care Time/CCT Total # of Minutes Spent Total Time Spent with Patient: Total time spent is greater than 50% in coordination of care (as documented) at patient's floor/unit and/or counseling patient: Coding Level of Care Code 53159 SUB INP/OBS CARE 2/35MIN Diagnoses Paroxysmal atrial fibrillation I48.0 (HFpEF) heart failure with preserved ejection fraction I50.30 Severe chronic obstructive pulmonary disease J44.9 Hyponatremia E87.1
--- NOTE | 2025-07-13 10:15 | Hospitalist Progress Note ---
Date of Service July 13, 2025 Assessment & Plan (1) Paroxysmal atrial fibrillation: Plan: -on cardizem CD -eliquis -amiodarone bolus and drip started -pt still in afib -awaiting cardiology follow up today for possible d/c medication recommendations (2) (HFpEF) heart failure with preserved ejection fraction: Plan: - Continue ARB - Consider adding on SGLT2 inhibitor for heart failure-defer to cardiology - Lasix 40 mg p.o. once daily (3) Severe chronic obstructive pulmonary disease: Plan: - Continue albuterol as needed - Continue maintenance inhaler (4) Hyponatremia: Plan: Na+ 134 Plan This patient is a 79-year-old female with a history of HTN, COPD, hyponatremia, osteopenia, lung adenocarcinoma s/p wedge resection, HLD, B12 deficiency, lymphocytic colitis, prediabetes, and recent thoracic decompression and fusion with subsequent postoperative thoracic epidural hematoma with spinal cord compression requiring emergent drainage on 06/08, who presents to the ED with 1 day of shortness of breath, heart palpitations, and cough. She was seen at her PCP office the day before with normal vital signs and no symptoms at that time except feeling a little lightheaded. In the ED, she was found to be in new onset rapid atrial fibrillation with rates in the 150s. She was given a Cardizem bolus and started on a drip as well as given IV Lasix. She was found to have bilateral pleural effusions on chest x-ray and an elevated BNP. Her heart rates were improved to the 90s but she still felt short of breath. She is admitted for new onset rapid atrial fibrillation and acute on chronic HFpEF. DVT prophylaxis-heparin drip converted to Eliquis Disposition-d/c home planned for 07/13/25 today or tomorrow, awaiting cardiology follow up. Admission and Anticipated Discharge Date Admission Date: July 09, 2025 Subjective -No events overnight. Pt resting comfortably in bed. HR has been uncontrol, still in afib. Review of Systems Review of Systems: CONST: Negative for fever, body aches and chills. HENT: Negative for neck pain/stiffness, headache, congestion, sore throat, swelling. EYES: Negative for discharge/pain or vision changes. RESP: Negative for cough/hemoptysis and shortness of breath. CV: Negative chest pain, difficulty breathing, palpitations. ABD: Negative pain, nausea, vomiting. : Negative increase frequency, dysuria, blood in urine or stool. MUSC: Negative for muscle aches, edema. SKIN: Negative rash, lesions/sores. NEURO: Negative headache, dizziness, weakness. Physical Exam Physical Exam: GENERAL APPEARANCE NAD, activity normal for age, well developed/ well nourished, no cyanosis, pallor, or diaphoresis. EYES lids/conjunctiva normal. EARS/NOSE/THROAT Mucous membranes moist, nares normal, lips/teeth normal uvula midline without oral pharyngeal erythema, exudate or swelling TMs normal bilaterally. No lymphangitis/lymphedema. HEAD/NECK normocephalic atraumatic, no facial trauma, neck is supple. RESPIRATORY respiratory effort normal, speaks in full sentences, no tripod position, no accessory muscle use. Lungs clear to auscultation without rhonchi, wheezes, rales CARDIAC Regular rate and rhythm, no edema. ABDOMINAL Soft, ND/NT. No evidence of fluid wave. No pulsatile masses on exam, rebound tenderness, Haynes sign or pain over Mcburney's point. MUSCLES/EXTREMITIES No abnormal range of motion, no swelling. SKIN Warm, pink and dry. No rashes, dermatoses, petechiae or lesions. NEUROLOGICAL Speech is clear and appropriate. Normal level of consciousness. Gait and coordination are normal. 5/5 strength in all extremities. PSYCH Normal mood and affect. Judgement/competence is appropriate Results & Data Results & Data Vital Signs (Past 12 Hours) Vital Signs Temp Pulse Pulse Resp BP BP Pulse Ox 07/13/25 08:23 36.4 C L 63 18 162/69 H 99 07/13/25 05:30 82 07/13/25 03:43 36.5 C 95 H 18 130/73 96 07/12/25 23:32 36.5 C 79 18 121/71 92 O2 Del Method 07/13/25 08:23 Room Air 07/13/25 05:30 07/13/25 03:43 Room Air 07/12/25 23:32 Room Air PG Care Time/CCT Total # of Minutes Spent Total Time Spent with Patient: Total time spent is greater than 50% in coordination of care (as documented) at patient's floor/unit and/or counseling patient: Coding Level of Care Code 29258 SUB INP/OBS CARE 2/35MIN Diagnoses Paroxysmal atrial fibrillation I48.0 (HFpEF) heart failure with preserved ejection fraction I50.30 Severe chronic obstructive pulmonary disease J44.9 Hyponatremia E87.1
--- NOTE | 2025-07-13 12:56 | Cardiology Progress Note ---
Date of Service July 13, 2025 Assessment & Plan (1) Paroxysmal atrial fibrillation: Plan: -on cardizem CD po -eliquis -amiodarone IV to be switched to po today -pt still in afib-HR in the 90s Would recommend that she be loaded with amiodarone x 3 weeks along with Eliquis and then be brought back for outpatient cardioversion. I think amiodarone is probably a poor drug choice long-term for her given underlying lung disease. Short-term however it is a reasonable choice and may have the best ability to achieve normal sinus rhythm. We could also consider putting her on Multaq which would not have the same pulmonary effects. (2) (HFpEF) heart failure with preserved ejection fraction: Plan: - Continue ARB - Consider adding on SGLT2 inhibitor for heart failure-defer to cardiology - Lasix 40 mg p.o. once daily (3) Severe chronic obstructive pulmonary disease: Plan: - Continue albuterol as needed - Continue maintenance inhaler (4) Hyponatremia: Plan: Na+ 134 Plan Will switch her IV amiodarone over to p.o.. Follow her heart rate. Would aim for heart rate control at this point and eventually try to get her back in the normal send of the rhythm with rhythm control after cardioversion. Admission and Anticipated Discharge Date Admission Date: July 09, 2025 Subjective -No events overnight. Pt resting comfortably in bed. HR has been uncontrol, still in afib. HR 90-100 at rest Review of Systems Review of Systems: All systems reviewed & are unremarkable except as noted in HPI & below Physical Exam Physical Exam: elderly/frail Results & Data Vital Signs (Past 12 Hours) Vital Signs Temp Pulse Pulse Resp BP Pulse Ox O2 Del Method 07/13/25 12:19 36.7 C 95 H 20 114/70 93 Room Air 07/13/25 08:23 36.4 C L 63 18 162/69 H 99 Room Air 07/13/25 05:30 82 07/13/25 03:43 36.5 C 95 H 18 130/73 96 Room Air Diagnostic Findings ECHO and ECG from 07/09/25-both reviewed Medications Administered Current Inpatient Medications Acetaminophen (Acetaminophen 500 Mg Tab) 500 mg PO Q6 PRN PRN Reason: Pain Stop: 08/08/25 15:17 Albuterol (Albuterol Hfa 8 Gm Inhaler) 2 puffs INH Q6H PRN PRN Reason: Shortness Of Breath Or Wheezing Stop: 08/08/25 15:17 Amiodarone HCl (Amiodarone 200 Mg Tab) 200 mg PO BIDM [facility] Stop: 08/12/25 12:54 Apixaban (Apixaban 5 Mg Tablet) 5 mg PO BID [facility] Stop: 08/09/25 20:59 Last Admin: 07/13/25 09:25 Dose: 5 mg Budesonide (Budesonide Ec 3 Mg Cap) 3 mg PO QAM [facility] Stop: 08/09/25 08:59 Last Admin: 07/13/25 09:25 Dose: 3 mg Calcium/Vitamin D (Calcium 600mg + Vit D 400 Iu Tab) 1 tab PO BID [facility] Stop: 08/08/25 20:59 Last Admin: 07/13/25 09:25 Dose: 1 tab Carvedilol (Carvedilol 12.5 Mg Tab) 12.5 mg PO BID [facility] Stop: 08/08/25 20:59 Last Admin: 07/13/25 09:25 Dose: 12.5 mg Cyanocobalamin (Cyanocobalamin (B-12) 500 Mcg Tablet) 1,000 mcg PO [facility] Stop: 08/09/25 08:59 Last Admin: 07/13/25 09:25 Dose: 1,000 mcg Diltiazem HCl (Diltiazem Hcl 120 Mg Capcr) 120 mg PO [facility] Stop: 08/10/25 08:59 Last Admin: 07/13/25 09:25 Dose: 120 mg Furosemide ([facility] 40 Mg Tab) [facility] Stop: 08/11/25 08:59 Last Admin: 07/13/25 09:25 Dose: 40 mg Melatonin (Melatonin 3 Mg Tab) 6 mg PO HSZ PRN PRN Reason: Sleep Stop: 08/08/25 21:59 Ondansetron HCl (Ondansetron Inj 2 Mg/Ml 2 Ml Vial) 4 mg IV Q6H PRN PRN Reason: Nausea Stop: 08/08/25 15:17 Polyethylene Glycol (Polyethylene (Miralax) 17 Gm Pack) 17 gm PO DAILY PRN PRN Reason: Constipation Stop: 08/08/25 15:17 Umeclidinium/Vilanterol (Umeclidinium/Vilanterol 62.5/25mcg 7 Puffs/Inhaler) 1 puffs INH [facility] Stop: 08/09/25 08:59 Last Admin: 07/13/25 09:25 Dose: 1 puffs Vitamin D (Cholecalciferol 25 Mcg (1000 Units) Tab) 50 mcg PO [facility] Stop: 08/09/25 08:59 Last Admin: 07/13/25 09:25 Dose: 50 mcg
[2025-07-13] MEDS: AMIODARONE 200 MG TAB PO SCH (13:58)
--- NOTE | 2025-07-14 09:36 | Hospitalist Progress Note ---
Date of Service July 14, 2025 Assessment & Plan (1) Paroxysmal atrial fibrillation: Plan: -on cardizem CD 120mg -continue eliquis -s/p amiodarone IV load, switch to PO on 07/13, continue load for 3 total weeks -o/p cardioversion if needed after amiodarone load -ongoing afib with labile rate, continue to monitor (2) (HFpEF) heart failure with preserved ejection fraction: Plan: - Continue ARB - Consider adding on SGLT2 inhibitor for heart failure-defer to o/p cardiology - Has been on Lasix 40 mg p.o. once daily - Euvolemic at this time, DC lasix today if OK with cardiology (3) Severe chronic obstructive pulmonary disease: Plan: - Continue albuterol as needed - Continue maintenance inhaler (4) Hyponatremia: Plan: Na+ 134 - recheck AM labs Plan This patient is a 79-year-old female with a history of HTN, COPD, hyponatremia, osteopenia, lung adenocarcinoma s/p wedge resection, HLD, B12 deficiency, lymphocytic colitis, prediabetes, and recent thoracic decompression and fusion with subsequent postoperative thoracic epidural hematoma with spinal cord compression requiring emergent drainage on 06/08, who presents to the ED with 1 day of shortness of breath, heart palpitations, and cough. She was seen at her PCP office the day before with normal vital signs and no symptoms at that time except feeling a little lightheaded. In the ED, she was found to be in new onset rapid atrial fibrillation with rates in the 150s. She was given a Cardizem bolus and started on a drip as well as given IV Lasix. She was found to have bilateral pleural effusions on chest x-ray and an elevated BNP. Her heart rates were improved to the 90s but she still felt short of breath. She is admitted for new onset rapid atrial fibrillation and acute on chronic HFpEF. DVT prophylaxis-heparin drip converted to Eliquis Disposition-d/c home planned for 07/13/25 today or tomorrow, awaiting cardiology follow up. Admission and Anticipated Discharge Date Admission Date: July 09, 2025 Subjective Doing okay this morning. Appetite is okay. She still notes fluid restrictions. Notes that her heart rate did jump quite a bit with even 1 lap around the unit yesterday. No new shortness of breath. No PND orthopnea. No dizziness or orthostasis at least in the bed at this time this morning. No other new events or concerns per patient or nursing staff. Physical Exam Physical Exam: GENERAL APPEARANCE NAD, activity normal for age, well developed/ well nourished, no cyanosis, pallor, or diaphoresis. HEENTMucous membranes moist, nares normal, lips/teeth normal uvula midline without oral pharyngeal erythema, exudate or swelling TMs normal bilaterally. No lymphangitis/lymphedema. RESPIRATORY respiratory effort normal, speaks in full sentences, no tripod posi tion, no accessory muscle use. Lungs clear to auscultation without rhonchi, wheezes, rales CARDIAC Irregular rhythm, normal rate, no edema or JVD MUSCLES/EXTREMITIES No abnormal range of motion, no swelling. SKIN Warm, pink and dry. No rashes, dermatoses, petechiae or lesions. NEUROLOGICAL Speech is clear and appropriate. Normal level of consciousness. Gait and coordination are normal. 5/5 strength in all extremities. Results & Data Results & Data Vital Signs (Past 12 Hours) Vital Signs Temp Pulse Pulse Resp BP BP Pulse Ox 07/14/25 07:37 36.3 C L 89 19 151/74 H 96 07/14/25 06:30 102 H 07/14/25 04:13 36.5 C 78 16 110/65 94 07/14/25 00:06 36.6 C 76 16 101/68 93 O2 Del Method 07/14/25 07:37 Room Air 07/14/25 06:30 07/14/25 04:13 Room Air 07/14/25 00:06 Room Air PG Care Time/CCT Total # of Minutes Spent Total Time Spent with Patient: Total time spent is greater than 50% in coordination of care (as documented) at patient's floor/unit and/or counseling patient: Coding Level of Care Code 23118 SUB INP/OBS CARE 2/35MIN Diagnoses Paroxysmal atrial fibrillation I48.0 (HFpEF) heart failure with preserved ejection fraction I50.30 Severe chronic obstructive pulmonary disease J44.9 Hyponatremia E87.1
[2025-07-14 11:00] LABS: Hematocrit (blood only) 36.6 % (37.0-47.0); Hemoglobin 12.1 g/dL (12.0-16.0); Immature Granulocytes # (auto) 0.01 K/uL (0.01-0.20); Immature Granulocytes % (auto) 0.2 %; Mean Corpuscular Hemoglobin 31.5 pg (25.0-34.0); Mean Corpuscular Volume 95.3 fL (80.0-100.0); Platelet Count 213 K/uL (130-400); RDW Standard Deviation 48.9 fL (36.4-46.3); Red Blood Count 3.84 M/uL (4.20-5.40); White Blood Count 6.63 K/ul (4.8-10.8)
[2025-07-14 11:17] LABS: Anion Gap 9.0 (3-11); Blood Urea Nitrogen 21.0 mg/dl (6-23); Calcium 9.4 mg/dl (8.6-10.3); Carbon Dioxide 28.0 mmol/L (21-32); Chloride 102.0 mmol/L (98-107); Creatinine Clr Calc Pharmacy 64.0 ml/min; Glucose 100.0 mg/dl (70-99(Fasting)); Magnesium 1.9 mg/dl (1.7-2.4); Potassium 3.5 mmol/L (3.5-5.1); Sodium 139.0 mmol/L (136-145)
--- NOTE | 2025-07-14 11:17 | Cardiology Progress Note ---
Date of Service July 14, 2025 Assessment & Plan (1) Paroxysmal atrial fibrillation: Plan 1. Atrial fibrillation: Atrial fibrillation: She has what sounds like prior atrial fibrillation although not diagnosed, so it is very likely she has longstanding paroxysmal atrial fibrillation and this episode may convert spontaneously. My approach would be to try rate control and see if we can achieve that, I discussed options of rate control, rhythm control (medications and possibly ablation). I am not in favor of amiodarone, in part because I do not want to start a medication we are not going to use long-term and it is difficult to switch from amiodarone to another antiarrhythmic due to the long half-life of amiodarone, and in part because she may not need antiarrhythmic therapy. I am also concerned that she may have been in atrial fibrillation for longer than we think and may be at risk of stroke if we convert her to sinus rhythm using medications. I am therefore going to discontinue amiodarone and increase her carvedilol, if that does not work by afternoon we can increase the diltiazem. Admission and Anticipated Discharge Date Admission Date: July 09, 2025 Subjective Chart reviewed and patient interviewed and examined. In brief, she presents in atrial fibrillation with a rapid ventricular response which was recently identified. She does describe prior symptoms compatible with atrial fibrillation although the diagnosis had not been made. Her left ventricular systolic function is normal and she has minor valvular abnormalities (mild to moderate mitral regurgitation). During this admission she has been started on anticoagulation (Eliquis) and is now on oral diltiazem (120 mg long-acting daily) and she is also on carvedilol 12.5 mg twice a day and amiodarone intravenous was started which has now been converted to oral at 200 mg twice a day, she has only been on oral amiodarone since July 13, 2025. Physical Exam Physical Exam: Constitutional: Alert, cooperative and in no distress. HEENT: Unremarkable Neck: No jugular venous distention, carotid pulses are irregular but otherwise normal and equal bilaterally without bruits. Pulmonary: Basilar crackles on auscultation bilaterally. Cardiac: Irregular rhythm with no murmur, gallop or rub. Abdomen: Soft, nontender with normal bowel sounds. Extremities: No edema. Neurologic: No focal findings. Skin: No rash, ecchymoses or petechiae. Results & Data Vital Signs (Past 12 Hours) Vital Signs Temp Pulse Pulse Resp BP BP Pulse Ox 07/14/25 11:06 36.3 C L 80 19 125/71 97 07/14/25 07:37 36.3 C L 89 19 151/74 H 96 07/14/25 06:30 102 H 07/14/25 04:13 36.5 C 78 16 110/65 94 07/14/25 00:06 36.6 C 76 16 101/68 93 O2 Del Method 07/14/25 11:06 Room Air 07/14/25 07:37 Room Air 07/14/25 06:30 07/14/25 04:13 Room Air 07/14/25 00:06 Room Air PG Care Time/CCT Total # of Minutes Spent Total Time Spent with Patient: Total time spent is greater than 50% in coordination of care (as documented) at patient's floor/unit and/or counseling patient: Coding Level of Care Code 65882 SUB INP/OBS CARE 3/50MIN Diagnoses Paroxysmal atrial fibrillation I48.0
[2025-07-14 12:14] LABS: Appearance Urine Clear (Clear); Bacteria Urine Automated None Seen (None Seen); Cast Urine Automated 0-2 /lpf (0-2); Epithelial Cell Urine Auto 0-2 /hpf (0-2); Glucose Urine UA Negative (Negative); WBC Urine Automated >50 /hpf (0-5)
--- NOTE | 2025-07-15 11:36 | Cardiology Progress Note ---
Date of Service July 15, 2025 Assessment & Plan (1) Paroxysmal atrial fibrillation: (2) Anticoagulant long-term use: Plan 1. Atrial fibrillation: She has what sounds like prior atrial fibrillation although not diagnosed, so it is very likely she has longstanding paroxysmal atrial fibrillation and this episode may convert spontaneously. My approach would be to try rate control and see if we can achieve that, I discussed options of rate control, rhythm control (medications and possibly ablation). We have not achieved adequate rate control, therefore we can increase the diltiazem. I will give her an additional 120 of long-acting diltiazem this morning (total 240) and continue with to 40 tomorrow morning. If this proves to be too much later today we can decrease tomorrow's dose. 2. Anticoagulation: She will need long-term anticoagulation and I agree with the use of Eliquis, she is on the correct dose based on her age and kidney function although her weight would support the lower dose. Admission and Anticipated Discharge Date Admission Date: July 09, 2025 Subjective She is feeling well today, she is sitting in a chair at her bedside. She has no awareness of her heart rate. She is not having side effects on increased carvedilol from yesterday. Physical Exam Physical Exam: Constitutional: Alert, cooperative and in no distress. HEENT: Unremarkable Neck: No jugular venous distention, carotid pulses are irregular but otherwise normal and equal bilaterally without bruits. Pulmonary: Basilar crackles on auscultation bilaterally. Cardiac: Irregular rhythm with no murmur, gallop or rub. Abdomen: Soft, nontender with normal bowel sounds. Extremities: No edema. Neurologic: No focal findings. Skin: No rash, ecchymoses or petechiae. Results & Data Vital Signs (Past 12 Hours) Vital Signs Temp Pulse Pulse Resp BP BP Pulse Ox 07/15/25 07:32 36.6 C 104 H 16 144/91 H 97 07/15/25 05:31 89 07/15/25 03:06 36.8 C 81 18 137/78 93 07/15/25 00:17 97 H O2 Del Method 07/15/25 07:32 Room Air 07/15/25 05:31 07/15/25 03:06 Room Air 07/15/25 00:17 Laboratory Results Intake and Output 07/14/25 07/15/25 07/15/25 22:59 06:59 14:59 Intake Total 50 / 510 100 / 510 Output Total 800 / 2100 Balance 50 / -1590 -700 / -1590 Intake: Oral 50 / 510 100 / 510 Output: Urine 800 / 2100 Other: Weight 57.2 kg Weight Measurement Method Built in [facility] Diagnostic Findings Telemetry: Atrial fibrillation with a heart rate averaging around 100 bpm overnight and this morning. PG Care Time/CCT Total # of Minutes Spent Total Time Spent with Patient: Total time spent is greater than 50% in coordination of care (as documented) at patient's floor/unit and/or counseling patient: Coding Level of Care Code 87306 SUB INP/OBS CARE 3/50MIN Diagnoses Paroxysmal atrial fibrillation I48.0 Anticoagulant long-term use Z79.01
--- NOTE | 2025-07-15 14:28 | Hospitalist Progress Note ---
Date of Service July 15, 2025 Assessment & Plan (1) Paroxysmal atrial fibrillation: Plan: -on cardizem CD 120mg -continue eliquis - See cardiology notes, DC amiodarone, increase Coreg, consider increasing diltiazem if rate still not controlled (2) (HFpEF) heart failure with preserved ejection fraction: Plan: - Continue ARB - Consider adding on SGLT2 inhibitor for heart failure-defer to o/p cardiology - Has been on Lasix 40 mg p.o. once daily - DC Lasix (3) Severe chronic obstructive pulmonary disease: Plan: - Continue albuterol as needed - Continue maintenance inhaler (4) Hyponatremia: Plan: Na+ 134 - recheck AM labs (5) UTI (urinary tract infection): Plan: - Urethral culture grew both Pseudomonas and E. coli, she is minimally symptomatic but has had some discharge. - Otherwise asymptomatic, will await sensitivities of the Pseudomonas E. coli Plan This patient is a 79-year-old female with a history of HTN, COPD, hyponatremia, osteopenia, lung adenocarcinoma s/p wedge resection, HLD, B12 deficiency, lymphocytic colitis, prediabetes, and recent thoracic decompression and fusion with subsequent postoperative thoracic epidural hematoma with spinal cord compression requiring emergent drainage on 06/08, who presents to the ED with 1 day of shortness of breath, heart palpitations, and cough. She was seen at her PCP office the day before with normal vital signs and no symptoms at that time except feeling a little lightheaded. In the ED, she was found to be in new onset rapid atrial fibrillation with rates in the 150s. She was given a Cardizem bolus and started on a drip as well as given IV Lasix. She was found to have bilateral pleural effusions on chest x-ray and an elevated BNP. Her heart rates were improved to the 90s but she still felt short of breath. She is admitted for new onset rapid atrial fibrillation and acute on chronic HFpEF. DVT prophylaxis-heparin drip converted to Eliquis Disposition-d/c home planned for 07/13/25 today or tomorrow, awaiting cardiology follow up. Admission and Anticipated Discharge Date Admission Date: July 09, 2025 Subjective Doing okay this morning. States that her heart rate has been more labile since stopping amiodarone and creased the carvedilol. She has no dizziness or orthostasis. She has been up and walking around a little bit with the assistance of staff. Otherwise no new or different symptoms. Adequate oral intake. No problems with bowel or bladder function. He is doing a lot of needlepoint work last time. She is somewhat frustrated of the timeframe for adjustment of her medications. Physical Exam Physical Exam: GENERAL APPEARANCE NAD, activity normal for age, well developed/ well nourished, no cyanosis, pallor, or diaphoresis. HEENTMucous membranes moist, nares normal, lips/teeth normal uvula midline without oral pharyngeal erythema, exudate or swelling TMs normal bilaterally. No lymphangitis/lymphedema. RESPIRATORY respiratory effort normal, speaks in full sentences, no tripod position, no accessory muscle use. Lungs clear to auscultation without rhonchi, wheezes, rales CARDIAC Irregular rhythm, normal rate, no edema or JVD MUSCLES/EXTREMITIES No abnormal range of motion, no swelling. SKIN Warm, pink and dry. No rashes, dermatoses, petechiae or lesions. NEUROLOGICAL Speech is clear and appropriate. Normal level of consciousness. Gait and coordination are normal. 5/5 strength in all extremities. Results & Data Results & Data Vital Signs (Past 12 Hours) Vital Signs Temp Pulse Pulse Resp BP BP Pulse Ox 07/15/25 11:59 36.3 C L 95 H 18 125/75 97 07/15/25 07:32 36.6 C 104 H 16 144/91 H 97 07/15/25 05:31 89 07/15/25 03:06 36.8 C 81 18 137/78 93 O2 Del Method 07/15/25 11:59 Room Air 07/15/25 07:32 Room Air 07/15/25 05:31 07/15/25 03:06 Room Air Laboratory Results 07/14/25 11:50 Urine Culture - Preliminary Urine,Clean Catch No growth - Less than 1,000 colonies/mL, Final report to follow. 07/14/25 Unknown Gram Stain - Final Urine,Ureter Aerobic and Anaerobic Culture - Preliminary Pseudomonas aeruginosa Escherichia coli PG Care Time/CCT Total # of Minutes Spent Total Time Spent with Patient: Total time spent is greater than 50% in coordination of care (as documented) at patient's floor/unit and/or counseling patient: Coding Level of Care Code 53276 SUB INP/OBS CARE 2/35MIN Diagnoses Paroxysmal atrial fibrillation I48.0 (HFpEF) heart failure with preserved ejection fraction I50.30 Severe chronic obstructive pulmonary disease J44.9 Hyponatremia E87.1 UTI (urinary tract infection) N39.0
[2025-07-16 04:16] VITALS: RESP 18
[2025-07-16 06:16] LABS: Hematocrit (blood only) 30.7 % (37.0-47.0); Hemoglobin 10.5 g/dL (12.0-16.0); Immature Granulocytes # (auto) 0.01 K/uL (0.01-0.20); Immature Granulocytes % (auto) 0.2 %; Mean Corpuscular Hemoglobin 32.0 pg (25.0-34.0); Mean Corpuscular Volume 93.6 fL (80.0-100.0); Platelet Count 211 K/uL (130-400); RDW Standard Deviation 47.7 fL (36.4-46.3); Red Blood Count 3.28 M/uL (4.20-5.40); White Blood Count 4.31 K/ul (4.8-10.8)
[2025-07-16 06:33] LABS: Anion Gap 6.0 (3-11); Blood Urea Nitrogen 32.0 mg/dl (6-23); Calcium 9.1 mg/dl (8.6-10.3); Carbon Dioxide 28.0 mmol/L (21-32); Chloride 106.0 mmol/L (98-107); Creatinine Clr Calc Pharmacy 56.5 ml/min; Glucose 88.0 mg/dl (70-99(Fasting)); Magnesium 2.1 mg/dl (1.7-2.4); Potassium 3.3 mmol/L (3.5-5.1); Sodium 140.0 mmol/L (136-145)
--- NOTE | 2025-07-16 10:37 | Cardiology Progress Note ---
Date of Service July 16, 2025 Assessment & Plan (1) Paroxysmal atrial fibrillation: (2) Anticoagulant long-term use: Plan 1. Atrial fibrillation: She has what sounds like prior atrial fibrillation although not diagnosed, so it is very likely she has longstanding paroxysmal atrial fibrillation and this episode may convert spontaneously. So far it has not however so we may have to consider cardioversion in the future. My approach would be to try rate control and see if we can achieve that, I believe her current rate is acceptable and a good compromise between somewhat rapid heart rate and the pause we noted this morning. I have discussed options of rate control, rhythm control (medications and possibly ablation). From my perspective she could go home and we can follow this in the office. 2. Anticoagulation: She will need long-term anticoagulation and I agree with the use of Eliquis, she is on the correct dose based on her age and kidney function although her weight would support the lower dose. Admission and Anticipated Discharge Date Admission Date: July 09, 2025 Subjective She is feeling well this morning, she is unaware of her heart rhythm. She has been walking around in her room without difficulty. Physical Exam Physical Exam: Constitutional: Alert, cooperative and in no distress. HEENT: Unremarkable Neck: No jugular venous distention, carotid pulses are irregular but otherwise normal and equal bilaterally without bruits. Pulmonary: Basilar crackles on auscultation bilaterally. Cardiac: Irregular rhythm with no murmur, gallop or rub. Abdomen: Soft, nontender with normal bowel sounds. Extremities: No edema. Neurologic: No focal findings. Skin: No rash, ecchymoses or petechiae. Results & Data Vital Signs (Past 12 Hours) Vital Signs Temp Pulse Pulse Resp BP BP Pulse Ox 07/16/25 07:27 36.5 C 82 18 140/74 92 07/16/25 03:36 36.4 C L 93 H 18 132/72 94 07/15/25 23:03 83 07/15/25 22:40 36.5 C 101 H 16 111/65 91 O2 Del Method 07/16/25 07:27 Room Air 07/16/25 03:36 Room Air 07/15/25 23:03 07/15/25 22:40 Room Air Laboratory Results CBC 07/16/25 Range/Units 05:34 WBC 4.31 L (4.8-10.8) K/ul RBC 3.28 L (4.20-5.40) M/uL Hgb 10.5 L (12.0-16.0) g/dL Hct 30.7 L (37.0-47.0) % Plt Count 211 (130-400) K/uL Neut # (Auto) 1.99 (1.40-6.50) K/uL Lymph # (Auto) 1.81 (1.20-3.40) K/uL Cannon # (Auto) 0.42 (0.11-0.59) K/uL Eos # (Auto) 0.06 (0.00-0.50) K/uL Baso # (Auto) 0.02 (0.00-0.20) K/uL Comprehensive Metabolic Panel 07/16/25 Range/Units 05:34 Sodium 140 (136-145) mmol/L Potassium 3.3 L (3.5-5.1) mmol/L Chloride 106 (98-107) mmol/L Carbon Dioxide 28 (21-32) mmol/L BUN 32 H (6-23) mg/dl Creatinine 0.75 (0.6-1.2) mg/dl Glucose 88 (70-99(Fasting)) mg/dl Calcium 9.1 (8.6-10.3) mg/dl Intake and Output 07/15/25 07/16/25 07/16/25 22:59 06:59 14:59 Intake Total 100 / 320 Output Total 650 / 1850 500 / 1850 Balance -650 / -1530 -400 / -1530 Intake: Oral 100 / 320 Output: Urine 650 / 1150 500 / 1150 Other: # Unmeasured Voids 2 Weight 55.4 kg Weight Measurement Method Standing Scale Diagnostic Findings Telemetry: Atrial fibrillation, heart rate is better controlled this morning, she did have a 2.6-second pause early this morning probably during sleep. PG Care Time/CCT Total # of Minutes Spent Total Time Spent with Patient: Total time spent is greater than 50% in coordination of care (as documented) at patient's floor/unit and/or counseling patient: Coding Level of Care Code 92153 SUB INP/OBS CARE 2/35MIN Diagnoses Paroxysmal atrial fibrillation I48.0 Anticoagulant long-term use Z79.01
[2025-07-16 11:31] VITALS: BP 123/79; TEMP 97.2; O2SAT 96
--- NOTE | 2025-07-16 14:32 | Discharge Summary ---
Discharge Summary Date of Service July 16, 2025 Principal Dx & Hospital Course #1 = Principal Diagnosis (1) Paroxysmal atrial fibrillation: -on cardizem CD 120mg -continue eliquis - Rate was modestly controlled with cavedilol 25mg BID and Cardizem ER 240mg, on the morning of DC a brief 2.5 secon pause was noted. Pt will with self limited and mild tachydcardia with activity. Tolerating medications well. DC to outpatient follow-up and ongoing titration. She may well need a pcaemaker if pauses persist or tolerance of current dose declines for any reason. (2) (HFpEF) heart failure with preserved ejection fraction: - Continue ARB - Consider adding on SGLT2 inhibitor for heart failure-defer to o/p cardiology - Has been on Lasix 40 mg p.o. once daily - DC with lasic 20mg qAM (3) Severe chronic obstructive pulmonary disease: - Continue albuterol as needed - Continue maintenance inhaler (4) Hyponatremia: Na+ 134 - stable on DC (5) UTI (urinary tract infection): - Urethral culture grew both Pseudomonas and E. coli, she is minimally symptomatic but has had some discharge. - DC with ciprofloxacin for 7 days to cover sensitivities for ecoli and pseudomonas. Plan This patient is a 79-year-old female with a history of HTN, COPD, hyponatremia, osteopenia, lung adenocarcinoma s/p wedge resection, HLD, B12 deficiency, lymphocytic colitis, prediabetes, and recent thoracic decompression and fusion with subsequent postoperative thoracic epidural hematoma with spinal cord compression requiring emergent drainage on 06/08, who presents to the ED with 1 day of shortness of breath, heart palpitations, and cough. She was seen at her PCP office the day before with normal vital signs and no symptoms at that time except feeling a little lightheaded. In the ED, she was found to be in new onset rapid atrial fibrillation with rates in the 150s. She was given a Cardizem bolus and started on a drip as well as given IV Lasix. She was found to have bilateral pleural effusions on chest x-ray and an elevated BNP. Her heart rates were improved to the 90s but she still felt short of breath. She is admitted for new onset rapid atrial fibrillation and acute on chronic HFpEF. DVT prophylaxis-heparin drip converted to Eliquis Disposition-d/c home planned for 07/13/25 today or tomorrow, awaiting cardiology follow up. Admission HPI Per Admitting Provider This patient is a 79-year-old female with a history of HTN, COPD, hyponatremia, osteopenia, lung adenocarcinoma s/p wedge resection, HLD, B12 deficiency, lymphocytic colitis, prediabetes, and recent thoracic decompression and fusion with subsequent postoperative thoracic epidural hematoma with spinal cord compression requiring emergent drainage on 06/08, who presents to the ED with 1 day of shortness of breath, heart palpitations, and cough. She was seen at her PCP office the day before with normal vital signs and no symptoms at that time except feeling a little lightheaded. In the ED, she was found to be in new ons et rapid atrial fibrillation with rates in the 150s. She was given a Cardizem bolus and started on a drip as well as given IV Lasix. She was found to have bilateral pleural effusions on chest x-ray and an elevated BNP. Her heart rates were improved to the 90s but she still felt short of breath. She will be admitted for new onset rapid atrial fibrillation and acute on chronic HFpEF. Discharge Exam GENERAL APPEARANCE NAD, activity normal for age, well developed/ well nourished, no cyanosis, pallor, or diaphoresis. HEENTMucous membranes moist, nares normal, lips/teeth normal uvula midline without oral pharyngeal erythema, exudate or swelling TMs normal bilaterally. No lymphangitis/lymphedema. RESPIRATORY respiratory effort normal, speaks in full sentences, no tripod position, no accessory muscle use. Lungs clear to auscultation without rhonchi, wheezes, rales CARDIAC Irregular rhythm, normal rate, no edema or JVD MUSCLES/EXTREMITIES No abnormal range of motion, no swelling. SKIN Warm, pink and dry. No rashes, dermatoses, petechiae or lesions. NEUROLOGICAL Speech is clear and appropriate. Normal level of consciousness. Gait and coordination are normal. 5/5 strength in all extremities. Discharge Plan Discharge Items Patient Disposition: Personal Shelter Reason For Visit: RAPID AFIB, CHF Discharge Diagnosis: Afib with RVR Condition on Discharge: Serious Health Concerns: -Your carvedilol was increased from 25mg once daily to 25mg twice daily -Cardizem ER was started, take this medication in the morning or evening the same time each day -A prescription for ciprofloxacin was sent to cover a mild UTI, take this for 7 days -Eliquis was started as a blood thinner, take this twice daily indefinitely -take lasix(furosemide) 20mg daily in the morning -Follow-up with cardiology in 2-4 weeks -Follow-u with PCP in 1 week for recheck and medication changes Activity: Resume your previous activity Non-emergency contact: Primary Care Provider Call non-emergency contact if: you have any medication questions, your symptoms worsen and you have a fever Follow-up/Referrals: Pro,Edward Mccoy MD [Primary Care Provider] - Diet: Heart Healthy Addtl Attending Provider Instructions: BMP and Mag level in follow-up Pending Studies at Discharge: No Stand-Alone Forms: My [employer], Smoking Cessation Skilled Items Patient informed of condition?: Yes DNR: Yes Discharge Level of Care: Other Communicable Disease: No Discharge Prognosis: Stable Lines: None Urinary Catheter: No Medications and DC Order Prescriptions: New Eliquis 5 mg tablet 5 mg PO BID Qty: 60 0RF Eliquis 5 mg Tablet 5 mg PO BID Qty: 60 0RF furosemide 40 mg Tablet 20 mg PO QAM Qty: 30 0RF carvedilol 25 mg Tablet 25 mg PO BIDM Qty: 60 0RF diltiazem HCl 240 mg Capsule,Extended Release 24hr 240 mg PO QAM Qty: 30 0RF ciprofloxacin HCl 500 mg tablet 500 mg PO BID 7 Days Qty: 14 0RF Continued calcium carbonate-vitamin D3 600 mg(1,500mg) -200 unit tablet 1 tab PO BID melatonin 5 mg capsule 5 - 10 mg PO DAILY PRN (Reason: Sleep) Rx Instructions: took 10 mg last night amlodipine 2.5 mg tablet 2.5 mg PO DAILY acetaminophen [Tylenol Extra Strength] 500 mg tablet 500 mg PO DAILY PRN (Reason: Pain) albuterol sulfate 90 mcg/actuation HFA aerosol inhaler 2 puff INH Q6H PRN (Reason: Shortness Of Breath Or Wheezing) Qty: 18 0RF simethicone 125 mg capsule 125 mg PO DAILY PRN (Reason: gas/bloating) potassium chloride 20 mEq tablet extended release 20 meq PO DAILY Qty: 90 3RF budesonide 3 mg capsule,delayed,extend.release 3 mg PO QAM umeclidinium-vilanterol [Anoro Ellipta] 62.5-25 mcg/actuation blister with device 1 inh inhalation QAM cyanocobalamin (vitamin B-12) [Vitamin B-12] 1,000 mcg Tablet 1,000 mcg PO QAM cholecalciferol (vitamin D3) [Vitamin D3] 50 mcg (2,000 unit) Capsule 50 mcg PO QAM triamcinolone acetonide 0.1 % cream 1 applic topical BID olmesartan 20 mg tablet 10 mg PO HS Prolia 60 mg/mL syringe 60 mg subcut UD Discontinued carvedilol 25 mg tablet 12.5 mg PO BID Discharge Orders: Discharge Order (Routine); Ordered 07/16/25 Ordered By: Dylan Cuevas/Other Patient Handouts: Apixaban Oral Tablet, UTIs, AFib Admission Data Admit Date/Time: 07/09/25 13:43 Attending Provider: Dylan Choi Admit Provider: Alecia Askew Primary Care Provider: Edward Harman Other Providers: Edward Bennett; Alecia Askew Hospital Stay Data Consultations 07/09/25 13:19 ED Decision to Admit Stat 07/09/25 13:43 Consult Cardiology Routine Diagnostic Imagining Performed 07/09/25 11:41 CT angio chest PE protocol Stat Pending Results Patient Have Any Pending Studies at Discharge: No Discharge Instructions Given to Patient (Per Discharging Provider) BMP and Mag level in follow-up Total Time Total Time Spent Total Time Spent (In Minutes): 45 minutes spent at the bedside discussing results and modifications to care plan with patient. Arrangements for prescription on discharge. Reviewing new medications, discharge planning and follow-up coordination Coding Level of Care Code 07582 INP/OBS DISCH >30 MIN Diagnoses Paroxysmal atrial fibrillation I48.0 (HFpEF) heart failure with preserved ejection fraction I50.30 Severe chronic obstructive pulmonary disease J44.9 Hyponatremia E87.1 UTI (urinary tract infection) N39.0
[2025-07-16 14:55] VITALS: PULSE 85
--- NOTE | 2025-07-17 10:36 | Electrocardiogram Report ---
Test Reason : Blood Pressure : */* mmHG Vent. Rate : 88 BPM Atrial Rate : * BPM P-R Int : * ms QRS Dur : 90 ms QT Int : 396 ms P-R-T Axes : * 98 70 degrees QTcB Int : 479 ms Atrial fibrillation Rightward axis Septal infarct (cited on or before 09-Jul-2025) Abnormal ECG When compared with ECG of 09-Jul-2025 12:41, Nonspecific T wave abnormality no longer evident in Lateral leads QRS axis Shifted right Confirmed by Geoff Galvan ([id number]) on 07/17/2025 10:36:00 AM Referred By: REFERRED SELF Confirmed By: Geoff Galvan
== END 2025-07-16 15:55 | disposition home or self-care (01) | DRG 308 ==
LOC: SUATTDRO → ED 10:01 → SUATTDRO 13:43 → 4W 13:43